=== PATIENT | male | born 1955 | race Caucasian/White ===

== ENCOUNTER 2017-12-29 22:01 | Inpatient (IN) | payer BC ==
--- NOTE | 2017-12-29 22:51 | RAD REPORT ---
EXAM DESCRIPTION: RAD - Chest Single View - 12/29/2017 10:44 pm CLINICAL HISTORY: Chest pain. COMPARISON: None. FINDINGS: Portable technique limits examination quality. The lungs are grossly clear. The heart is normal in size. No displaced fractures. IMPRESSION: No acute intrathoracic process suspected.
[2017-12-29 22:52] LABS: Absolute Lymphocytes (CBC) 4.4 K/uL (0.7-4.9); Absolute Neutrophil 4.8 K/uL (1.8-8.0); Basophils % 0.5 % (0-1.3); Eosinophils % 4.3 % (0-4.4); Hematocrit 43.9 % (39.6-49.0); Lymphocytes % 40.9 % (15.3-44.8); MCH 31.4 pg (27.0-35.0); MCV 90.2 fL (80-100); MPV 7.7 fL (7.6-11.3); Monocytes % 9.5 % (3.3-12.3); RBC Red Blood Cell Count 4.86 M/uL (4.33-5.43)
[2017-12-29 22:53] LABS: Protime INR 0.96
[2017-12-30 00:55] LABS: Urine Blood NEGATIVE (NEG); Urine Glucose 1+ (NEG); Urine Protein NEGATIVE (NEG); Urine Specific Gravity 1.015 (1.005-1.030)
--- NOTE | 2017-12-30 00:59 | ER ---
Nurse's Notes [facility] Name: Morris Bowman Age: 62 yrs Sex: Male : 1955 Arrival Date: 12/29/2017 Time: 22:02 Bed 17 Private MD: Diagnosis: Unstable angina Presentation: 12/29 22:03 Presenting complaint: Patient states: that at 2100 he was sitting down eating a bowl of fc gapes and suddenly he started to have pain to the left arm pit. States he got up to try and walk it off but then the pain became worse and he started to have nausea. He is also flushed and having shortness of breath. Transition of care: patient was not received from another setting of care. Onset of symptoms was December 29, 2017 at 21:00. Care prior to arrival: Medication(s) given: TUMs. 22:03 Method Of Arrival: Ambulatory 22:03 Acuity: ALEKSANDRA 2 Historical: - Allergies: 22:23 Codeine; fc - Home Meds: 22:23 Xyzal 5 mg oral tab 1 tab once daily [Active]; Janumet XR 100-1,000 mg oral TM24 1 tab fc once daily [Active]; amlodipine-valsartan 5-320 mg oral tab 1 tab once daily [Active]; Colace 100 mg oral cap 1 cap once daily [Active]; multivitamin oral tab daily [Active]; - PMHx: 22:23 Diabetes - NIDDM; Hypertension; constipation; allergies; fc - PSHx: 22:23 Cholecystectomy; 12/30 02:25 Hernia repair; fc - Immunization history:: Last tetanus immunization: up to date. - Social history:: Smoking status: Patient uses tobacco products, smokes one pack cigarettes per day. Patient/guardian denies using alcohol, street drugs. Screenin/05 22:03 Abuse screen: Denies threats or abuse. Nutritional screening: No deficits noted. Tuberculosis screening: No symptoms or risk factors identified. Fall Risk None identified. Assessment: 22:27 General: Appears in no apparent distress. Behavior is calm, cooperative, appropriate ea for age. Pain: Complains of pain in left axilla. Neuro: Level of Consciousness is awake, alert, obeys commands, Oriented to person, place, time, situation. Cardiovascular: Heart tones present Patient's skin is warm and dry. Respiratory: Airway is patent Respiratory effort is even, unlabored, Respiratory pattern is regular, symmetrical, Breath sounds are clear. GI: Abdomen is round non-distended, Bowel sounds present X 4 quads. Derm: Skin is pink, warm \T\ dry. 23:04 Reassessment: Patient and/or family updated on plan of care and expected duration. Pain ea level reassessed. Patient is alert, oriented x 3, equal unlabored respirations, skin warm/dry/pink. family at bedside. 12/30 00:29 Reassessment: Patient and/or family updated on plan of care and expected duration. Pain ea level reassessed. Pt resting with eyes closed, respirations even and unlabored, chest expansions even and symmetrical. 01:03 Reassessment: Patient and/or family updated on plan of care and expected duration. Pain ea level reassessed. Patient is alert, oriented x 3, equal unlabored respirations, skin warm/dry/pink. Pt stated she was stepping out Mirta [phone]. 02:36 Reassessment: Patient and/or family updated on plan of care and expected duration. Pain ea level reassessed. Patient is alert, oriented x 3, equal unlabored respirations, skin warm/dry/pink. Vital Signs: 12/29 22:03 BP 171 / 86; Pulse 77; Resp 18; Temp 97.6(O); Pulse Ox 97% on R/A; Weight 104.33 kg fc (R); Height 6 ft. 3 in. (190.50 cm) (R); Pain 5/10; 23:35 BP 120 / 76; Pulse 62; Resp 18; Pulse Ox 99% on R/A; ea 12/30 00:30 BP 103 / 52; Pulse 58; Resp 18 S; Pulse Ox 98% on R/A; ea 01:02 BP 102 / 56; Pulse 57; Resp 18 S; Pulse Ox 98% on R/A; ea 02:27 BP 110 / 51; Pulse 56; Resp 16; Temp 98.0; Pulse Ox 96% ; Pain 0/10; fc 12/29 22:03 Body Mass Index 28.75 (104.33 kg, 190.50 cm) ED Course: 12/29 22:02 Patient arrived in ED. ds1 22:03 Arm band placed on Patient placed in an exam room, on a stretcher. fc 22:03 Patient has correct armband on for positive identification. Placed in gown. Bed in low fc position. Call light in reach. campus monitor on. Pulse ox on. NIBP on. 22:03 No provider procedures requiring assistance completed. fc 22:08 Willis Jacob MD is Attending Physician. 22:11 Ara Singer RN is Primary Nurse. ea 22:20 Triage completed. fc 22:33 Inserted saline lock: 20 gauge in right antecubital area, using aseptic technique. ea Blood collected. 22:42 X-ray completed. Portable x-ray completed in exam room. Patient tolerated procedure sw well. 22:44 XRAY Chest (1 view) In Process Unspecified. EDNV 04 00:58 Demarcus Silver MD is Hospitalizing Provider. 01:56 Patient admitted, IV remains in place. ea Administered Medications: 01:13 Drug: Aspirin Chewable Tablet 324 mg Route: PO; ea 02:32 Follow up: Response: No adverse reaction; No change in condition fc Outcome: 00:58 Decision to Hospitalize by Provider. 02:26 Admitted to Tele accompanied by Micromuscle, via wheelchair, room 225, with chart, Report fc called to Alfonzo ARANDA 02:26 Condition: good 02:26 Discharge instructions given to patient, Instructed on the need for admit, Demonstrated understanding of instructions. 02:37 Patient left the ED. ea Signatures: Dispatcher [employer] EDNV Ashlee Esparza RN RN Gina Gomez Shannon Ara Singer RN RN ea Starr, Gregory, MD MD Corrections: (The following items were deleted from the chart) 01:05 01:03 Reassessment: Patient and/or family updated on plan of care and expected ea duration. Pain level reassessed. Patient is alert, oriented x 3, equal unlabored respirations, skin warm/dry/pink. Pt stated she was steeping out Mirta ea 02:25 04/05 22:23 PSHx: Hysterectomy; fc fc 12/30 02:30 02:26 Admitted to Tele accompanied by Micromuscle, via wheelchair, room 225, with chart, fc Report called to Irving RN fc
--- NOTE | 2017-12-30 00:59 | EDPHYS ---
Physician Documentation [facility] Name: Morris Bowman Age: 62 yrs Sex: Male : 1955 Arrival Date: 12/29/2017 Time: 22:02 Bed 17 Private MD: ED Physician Willis Jacob HPI: 12/30 01:02 This 62 yrs old Male presents to ER via Ambulatory with complaints of Nausea, gs Pain Under Arm. 01:02 The patient or guardian reports chest pain that is located primarily in the anterior gs chest wall, left. Onset: acutely, 1.5 hour(s) ago. The pain does not radiate. Associated signs and symptoms: Pertinent positives: diaphoresis, shortness of breath. The chest pain is described as a heaviness. Duration: The patient or guardian reports a single episode, that lasted 30 minute(s). Modifying factors: The symptoms are alleviated by nothing. the symptoms are aggravated by nothing. Severity of pain: At its worst the pain was severe in the emergency department the pain has resolved. The patient has not experienced similar symptoms in the past. Historical: - Allergies: 12/29 22:23 Codeine; fc - Home Meds: 22:23 Xyzal 5 mg oral tab 1 tab once daily [Active]; Janumet XR 100-1,000 mg oral TM24 1 tab fc once daily [Active]; amlodipine-valsartan 5-320 mg oral tab 1 tab once daily [Active]; Colace 100 mg oral cap 1 cap once daily [Active]; multivitamin oral tab daily [Active]; - PMHx: 22:23 Diabetes - NIDDM; Hypertension; constipation; allergies; fc - PSHx: 22:23 Cholecystectomy; fc 12/30 02:25 Hernia repair; fc - Immunization history:: Last tetanus immunization: up to date. - Social history:: Smoking status: Patient uses tobacco products, smokes one pack cigarettes per day. Patient/guardian denies using alcohol, street drugs. ROS: 01:02 All other systems are negative. gs Exam: 01:02 Head/Face: Normocephalic, atraumatic. Eyes: Pupils equal round and reactive to light, gs extra-ocular motions intact. Lids and lashes normal. Conjunctiva and sclera are non-icteric and not injected. Cornea within normal limits. Periorbital areas with no swelling, redness, or edema. ENT: Nares patent. No nasal discharge, no septal abnormalities noted. Tympanic membranes are normal and external auditory canals are clear. Oropharynx with no redness, swelling, or masses, exudates, or evidence of obstruction, uvula midline. Mucous membranes moist. Neck: Trachea midline, no thyromegaly or masses palpated, and no cervical lymphadenopathy. Supple, full range of motion without nuchal rigidity, or vertebral point tenderness. No Meningismus. Chest/axilla: Normal chest wall appearance and motion. Nontender with no deformity. No lesions are appreciated. Respiratory: Lungs have equal breath sounds bilaterally, clear to auscultation and percussion. No rales, rhonchi or wheezes noted. No increased work of breathing, no retractions or nasal flaring. Abdomen/GI: Soft, non-tender, with normal bowel sounds. No distension or tympany. No guarding or rebound. No evidence of tenderness throughout. Back: No spinal tenderness. No costovertebral tenderness. Full range of motion. Skin: Warm, dry with normal turgor. Normal color with no rashes, no lesions, and no evidence of cellulitis. MS/ Extremity: Pulses equal, no cyanosis. Neurovascular intact. Full, normal range of motion. Neuro: Awake and alert, GCS 15, oriented to person, place, time, and situation. Cranial nerves II-XII grossly intact. Motor strength 5/5 in all extremities. Sensory grossly intact. Cerebellar exam normal. Normal gait. 01:02 Constitutional: The patient appears alert, awake. 01:02 Cardiovascular: Rate: normal, Rhythm: regular, Pulses: no pulse deficits are appreciated, Heart sounds: normal, Edema: is not appreciated. 01:02 ECG was reviewed by the Attending Physician. Vital Signs: 12/29 22:03 BP 171 / 86; Pulse 77; Resp 18; Temp 97.6(O); Pulse Ox 97% on R/A; Weight 104.33 kg fc (R); Height 6 ft. 3 in. (190.50 cm) (R); Pain 5/10; 23:35 BP 120 / 76; Pulse 62; Resp 18; Pulse Ox 99% on R/A; ea 12/30 00:30 BP 103 / 52; Pulse 58; Resp 18 S; Pulse Ox 98% on R/A; ea 01:02 BP 102 / 56; Pulse 57; Resp 18 S; Pulse Ox 98% on R/A; ea 02:27 BP 110 / 51; Pulse 56; Resp 16; Temp 98.0; Pulse Ox 96% ; Pain 0/10; fc 12/29 22:03 Body Mass Index 28.75 (104.33 kg, 190.50 cm) MDM: 12/29 22:18 Patient medically screened. 12/30 01:02 Differential diagnosis: abnormal EKG, acute myocardial infarction, coronary artery gs disease unstable angina. Data reviewed: vital signs, nurses notes. ED course: troponin elevated, no recurrence of pain will admit. 12/29 22:18 Order name: Basic Metabolic Panel; Complete Time: 23:14 12/29 22:18 Order name: BNP; Complete Time: 23:22 12/29 22:18 Order name: CBC with Diff; Complete Time: 23:14 12/29 22:18 Order name: PT-INR; Complete Time: 23:14 12/29 22:18 Order name: Troponin (emerg Dept Use Only); Complete Time: 23:14 12/29 22:18 Order name: XRAY Chest (1 view); Complete Time: 22:54 12/29 22:18 Order name: EKG; Complete Time: 22:19 12/29 22:18 Order name: Cardiac monitoring; Complete Time: 22:41 12/29 22:47 Order name: D-Dimer; Complete Time: 23:14 [facility] 12/29 23:35 Order name: Troponin (emerg Dept Use Only); Complete Time: 00:50 12/29 23:58 Order name: Urine Dipstick--Ancillary (enter results); Complete Time: 00:57 rg2 12/30 01:03 Order name: CONS Physician Consult EDIL 12/29 22:18 Order name: EKG - Nurse/Tech; Complete Time: 22:41 12/29 22:18 Order name: IV Saline Lock; Complete Time: 22:41 12/29 22:18 Order name: Labs collected and sent; Complete Time: 22:41 12/29 22:18 Order name: O2 Per Protocol; Complete Time: 22:41 12/29 22:18 Order name: O2 Sat Monitoring; Complete Time: 22:41 12/29 22:18 Order name: Urine Dipstick-Ancillary (obtain specimen); Complete Time: 23:49 EC: Rate is 72 beats/min. Rhythm is regular. FL interval is normal. QRS interval is normal. QT interval is normal. ST Segment is elevated in leads II, aVF. Clinical impression: NSR w/ Non-specific ST/T Changes. Interpreted by me. Administered Medications: 01:13 Drug: Aspirin Chewable Tablet 324 mg Route: PO; ea 02:32 Follow up: Response: No adverse reaction; No change in condition Disposition: :02 Critical Care:. Disposition: 12/30/17 00:58 Hospitalization ordered by Demarcus Silver for Inpatient Admission. Preliminary diagnosis is Unstable angina. - Bed requested for Telemetry/MedSurg (Inpatient). - Status is Inpatient Admission. ea - Condition is Stable. - Problem is new. - Symptoms are resolved. UTI on Admission? No Critical care time excluding procedures: : Critical care time: Bedside Care: 10 minutes, Consultation: 10 minutes, Family gs Intervention: 10 minutes. Total time: 30 minutes Signatures: Dispatcher [employer] Ligia Marsh RN RN Ashlee Esparza RN RN fc Antunez, Elena, RN RN ea Starr, Gregory, MD MD Corrections: (The following items were deleted from the chart) 12/29 22:47 22:29 D-DIMER+COAG.LAB.BRZ ordered. EDIL EDIL 12/30 02:25 12/29 22:23 PSHx: Hysterectomy; [facility]
[2017-12-30] MEDS ORDERED: ASPIRIN 81 MG CHEWABLE TABLET ONE (01:30)
--- NOTE | 2017-12-30 02:16 | P.HP ---
Certification for Inpatient Patient admitted to: Inpatient With expected LOS: >2 Midnights Practitioner: I am a practitioner with admitting privileges, knowledge of patient current condition, hospital course, and medical plan of care. Services: Services provided to patient in accordance with Admission requirements found in Title 42 Section 412.3 of the Code of Federal Regulations Patient History Date of Service: 12/30/17 Reason for admission: NSTEMI History of Present Illness: Mr Bowman is a 62 years old male with history of DM II, HTN, obesity, tobacco abuse, who came to ED complaining of chest pain. His symptoms started last night around 2100 while he was eating a bowl of grapes. He felt a pressure in his left arm pit, lasting for 20 minutes, 4/10 of intensity, no radiated, associated with nausea and SOB. He denied palpitations or dizziness. Then he repeat same symptoms again for other 20 minutes. In ER he had another episode. At the time of my encounter the patient was pain free. EKG shows sinus rhythm at 70's bpm. Initial troponin I negative, however, second one 0.06. Allergies codeine Allergy (Verified 12/30/17 01:12) Itching/Hives/Rash Home Medications: Amlodipine/Valsartan [Amlodipine-Valsartan 5-320 mg] 1 tab PO DAILY 12/30/17 Docusate [Colace Cap] 100 mg PO DAILY 12/30/17 Levocetirizine Dihydrochloride [Xyzal] 1 tab PO DAILY 12/30/17 Multivitamin [Multiple Vitamins] 1 tab PO DAILY 12/30/17 Sitagliptin Phos/Metformin HCl [Janumet Xr 100-1,000 mg Tablet] 1 tab PO DAILY 12/30/17 - Past Medical/Surgical History -: DM II -: HTN -: tobacco abuse -: Cholecystectomy - Family History Family History: Reviewed- Non-Contributory - Social History Smoking Status: Current every day smoker Counseled patient to stop smoking for: less than 10 minutes Alcohol use: No CD- Drugs: No Place of Residence: Home Review of Systems 10-point ROS is otherwise unremarkable Physical Examination - Physical Exam General: Alert, In no apparent distress HEENT: Atraumatic, PERRLA, Mucous membr. moist/pink, EOMI, Sclerae nonicteric Neck: Supple, 2+ carotid pulse no bruit, No LAD, Without JVD or thyroid abnormality Respiratory: Clear to auscultation bilaterally, Normal air movement Cardiovascular: Regular rate/rhythm, Normal S1 S2 Gastrointestinal: Normal bowel sounds, No tenderness Musculoskeletal: No tenderness Integumentary: No rashes Neurological: Normal speech, Normal strength at 5/5 x4 extr, Normal tone, Normal affect Lymphatics: No axilla or inguinal lymphadenopathy - Studies Laboratory Data (last 24 hrs) 12/29/17 22:32: PT 11.3, INR 0.96 12/29/17 22:32: WBC 10.7, Hgb 15.3, Hct 43.9, Plt Count 260 12/29/17 22:32: B-Natriuretic Peptide 20 12/29/17 22:32: Sodium 132 L, Potassium 4.0, BUN 15, Creatinine 1.10, Glucose 266 H Assessment and Plan - Problems (Diagnosis) (1) NSTEMI (non-ST elevated myocardial infarction) Current Visit: Yes Status: Acute (2) HTN (hypertension) Current Visit: Yes Status: Acute Qualifiers: Hypertension type: essential hypertension Qualified Code(s): I10 - Essential (primary) hypertension (3) Diabetes mellitus Current Visit: Yes Status: Acute Qualifiers: Diabetes mellitus type: type 2 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 Will load with Brilinta, he already received ASA 324 mg, order Atorvastatin, full dose lovenox , hold beta dean due to borderline blood pressure and bradycardia (60 bpm). Consult Electrolog Operator. - Advance Directives Does patient have a Living Will: No Does patient have a Durable POA for Healthcare: No - Code Status/Comfort Care Code Status Assessed: Yes Code Status: Full Code
[2017-12-30] MEDS ORDERED: TICAGRELOR 90 MG TABLET PO ONE ×2 (02:27→04:08)
[2017-12-30] MEDS ORDERED: MORPHINE 4 MG/ML SYR IV PRN (02:27)
[2017-12-30] MEDS ORDERED: ACETAMINOPHEN 500 MG TAB PO PRN (02:27)
[2017-12-30] MEDS ORDERED: NITROGLYCERIN 0.4 MG/TAB SL PRN ×2 (02:27→16:50)
[2017-12-30] MEDS: ATORVASTATIN 80 MG TAB PO SCH ×2 (03:54→21:19)
--- NOTE | 2017-12-30 06:31 | EKG ---
Test Date: 2017-12-29 Test Time: 22:22:49 Syruper: ANDRIY MEASUREMENT RESULTS: Intervals: Rate: 72 OK: 180 QRSD: 76 QT: 348 QTc: 381 [place]: P: 47 OK: 180 QRS: 8 T: 37 INTERPRETIVE STATEMENTS: Normal sinus rhythm Possible Inferior infarct, age undetermined Abnormal ECG No previous ECG available for comparison Electronically Signed On 12-30-17 06:30:52 CDT by Gael Dela Cruz
[2017-12-30] MEDS: INSULIN -REGULAR HUMAN 50 UNIT/0.5 ML ML SQ SCH ×4 (07:30→21:00)
--- NOTE | 2017-12-30 07:48 | P.PN ---
Subjective Date of Service: 12/30/17 Primary Care Provider: Dr. Orellana([place]) Chief Complaint: NSTEMI Subjective: Doing well (Patient doing well. No chest pain noted. Patient reports a history of stress test many years ago.) Physical Examination - Vital Signs Temperature: 97.7 F Blood Pressure: 130/66 Pulse: 59 Respirations: 18 Pulse Ox (%): 98 - Physical Exam General: Alert, In no apparent distress, Oriented x3, Cooperative HEENT: Atraumatic, Mucous membr. moist/pink Neck: Supple, No Thyromegaly Respiratory: Clear to auscultation bilaterally, Normal air movement Cardiovascular: Normal pulses, Regular rate/rhythm Gastrointestinal: Normal bowel sounds, Soft and benign, Non-distended, No masses , No rebound, No guarding Musculoskeletal: No erythema, No tenderness, No warmth Integumentary: No tenderness/swelling, No erythema, No warmth, No cyanosis Neurological: Normal speech, Normal strength at 5/5 x4 extr, Normal tone, Normal affect - Studies Laboratory Data (last 24 hrs) 12/29/17 22:32: PT 11.3, INR 0.96 12/29/17 22:32: WBC 10.7, Hgb 15.3, Hct 43.9, Plt Count 260 12/29/17 22:32: B-Natriuretic Peptide 20 12/29/17 22:32: Sodium 132 L, Potassium 4.0, BUN 15, Creatinine 1.10, Glucose 266 H Medications List Reviewed: Yes Assessment & Plan - Problems (Diagnosis) (1) Chest pain Current Visit: Yes Status: Acute Plan: Chest pain noted. Elevated troponin noted. Suspect non ST wave NE. Will keep the patient NPO. Console cardiology for recommendation. Patient will likely need intervention. Await recommendations. Will check echocardiogram. Patient did get a dose of Brilinta last night. Will continue with current medications. Qualifiers: Chest pain type: unspecified Qualified Code(s): R07.9 - Chest pain, unspecified (2) Diabetes mellitus Current Visit: Yes Status: Chronic Plan: Will check A1c. Will continue with sliding scale. Qualifiers: Diabetes mellitus type: type 2 Diabetes mellitus group home insulin use: without group home use Diabetes mellitus complication status: with unspecified complications Qualified Code(s): E11.8 - Type 2 diabetes mellitus with unspecified complications (3) HTN (hypertension) Current Visit: Yes Status: Chronic Plan: Will provide blood pressure medication-losartan. Will monitor closely and adjust. Qualifiers: Hypertension type: essential hypertension Qualified Code(s): I10 - Essential (primary) hypertension (4) NSTEMI (non-ST elevated myocardial infarction) Current Visit: Yes Status: Acute Plan: Patient with elevated troponin. Cardiology consulted. Patient NPO in preparation for possible intervention. (5) Tobacco abuse Current Visit: Yes Status: Chronic Plan: Tobacco cessation will be addressed in detail. Discharge Plan: Home Plan to discharge in: 24 Hours Time Spent Managing Pts Care (In Minutes): 55
[2017-12-30] MEDS ORDERED: ENOXAPARIN 100 MG/ML SYR SQ SCH (09:00)
[2017-12-30] MEDS: LOSARTAN POTASSIUM 50 MG TABLET PO SCH (09:00)
[2017-12-30] MEDS: DOCUSATE NA 100 MG CAP PO SCH (09:00)
[2017-12-30] MEDS: ASPIRIN EC 81 MG TAB PO SCH (09:00)
[2017-12-30] MEDS ORDERED: NA CHLORIDE 0.9% 50 ML ONE (09:11)
[2017-12-30] MEDS ORDERED: ATROPINE SULF 1 MG/10 ML SYR IV ONE (09:11)
[2017-12-30] MEDS ORDERED: HEPA 1000U/500MLS 1,000 UNIT/500 ML BAG IV ONE ×2 (09:11→09:41)
[2017-12-30] MEDS ORDERED: HEPARIN 5000 UNIT/ML 1 ML VIAL ONE (09:12)
[2017-12-30] MEDS ORDERED: NITROGLYCERIN/D5W 25 MG/250 ML BTL IV ONE (09:12)
[2017-12-30] MEDS ORDERED: NICARDIPINE HCL 25 MG/10 ML IV ONE (09:12)
--- NOTE | 2017-12-30 09:18 | EKG ---
Test Date: 2017-12-30 Test Time: 03:14:10 Principal Developer: RT-O MEASUREMENT RESULTS: Intervals: Rate: 53 SC: 178 QRSD: 94 QT: 388 QTc: 364 [place]: P: 61 SC: 178 QRS: 42 T: 56 INTERPRETIVE STATEMENTS: Sinus bradycardia Otherwise normal ECG Compared to ECG 12/29/2017 22:22:49 Sinus rhythm no longer present Myocardial infarct finding no longer present Electronically Signed On 12-30-17 09:17:53 CDT by Gael eDla Cruz
[2017-12-30 09:34] LABS: Thyroid Stimulating Hormone 2.13 uIU/mL (0.34-5.60)
[2017-12-30] MEDS ORDERED: NA CHLORIDE 0.9% 500 ML ONE (09:51)
[2017-12-30] MEDS ORDERED: MIDAZOLAM HCL 2 MG/2 ML INJ ONE (09:57)
[2017-12-30] MEDS ORDERED: FENTANYL CITR 100 MCG/2 ML ONE ×3 (09:57→10:41)
[2017-12-30 11:15] LABS: A1c Component 0.94 mg/dL; Hemoglobin A1c 7.5 % (4-6.0)
--- NOTE | 2017-12-30 13:04 | CON ---
CARDIOLOGY CONSULT History Of Present Illness: Mr. Bowman is 62. He has a history of diabetes and tobacco use, COPD, a nd he started having chest pain. The chest pain was retrosternal, felt like nausea, a lot of burping lasted about 30 minutes, went away, came back once for 10 minutes and then went away. He came to [facility] emergency room where he has a normal complete blood count. He has a blood sugar of 266, creatinine of 1.1 and troponins were initially less than 0.03. Now, they have gone up to 0.08. He has a ricky l lipid panel. He has never had myocardial infarction or stroke before. He is allergic to codeine. Outpatient Medications: Xyzal, amlodipine, valsartan, Janumet, multivitamin, and docusate. Social History: He smokes about 1 pack per day. Physical Examination: General: He is plethoric. HEENT: Unremarkable. Lungs: Clear. Cardiac: Within normal limits. Abdomen: Soft. Extremities: Palpable normal distal pulses. There are 2 to 3+. A chest x-ray is normal. His electrocardiogram shows a possible inferior infarct, age undetermined. Impression: The patient has unstable angina. I believe he should undergo a cardiac cath and possibl e stent. We will try and do that as soon as we are sure about anticoagulation and I believe he could be taken to the cardiac cathodic protection technician, do a radial artery cardiac cath and possibly a stent. MIRYAM Voice ID: [id number] Report ID: [id number]
[2017-12-30] MEDS ORDERED: ACETAMINOPHEN 325 MG TABLET PO PRN (16:49)
[2017-12-30] MEDS ORDERED: NA CHLORIDE 0.9% 1,000 ML IV SCH (17:00)
[2017-12-30] MEDS: METOPROLOL TAR 25 MG TAB PO SCH (18:02)
[2017-12-30] MEDS: TICAGRELOR 90 MG TABLET PO SCH (21:20)
--- NOTE | 2017-12-30 21:33 | OP ---
Surgeon: Gael Dela Cruz MD Procedures Performed: Left heart catheterization. Coronary left ventricular angiography. Angioplas ty of the mid-LAD 99% thrombosed stenosis. Successful intervention, a stent was placed, and has 0% r esidual stenosis after the stent. Findings: The patient had a mid LAD stenosis with thrombus and obvious culprit lesion. Left ventric ular ejection fraction was normal. The other arteries were free of any significant disease. There w as mild plaque throughout his coronary tree. Very minimal calcification. After stenting, there was 0% residual stenosis. Procedure In Detail: The patient had unstable angina. Evidence non-ST elevation NV. Brought to the cardiac medical lab technologist in a fasting state. Sedated with Versed and fentanyl. Prepared and draped in usua l sterile fashion. The right radial approach was used. We entered the artery using a 21-gauge needl e, modified Seldinger technique. A 0.021 inch guidewire. Used a Terumo sheath. Used a TIG catheter , guided to the aortic root using fluoroscopy and a Glidewire. Used the TIG catheter to angiogram le ft ventricle, left and right coronaries. We exchanged the catheter over an exchange length J-wire fo r an Ikari left 4.0 with side holes. This successfully engaged the left main ostium. We were able t o pass a Gifford wire. We used an Emerge balloon, 3.0 x 15, to dilate the lesion. After dilation, th ere was a severe residual stenosis, and we stented the lesion using a 3.0 x 16 synergy, inflated to 1 2 atmospheres. After the stent was placed, there was MOUNA grade 3 flow. No residual stenosis. The stent was placed fairly close to a myocardial bridge. At the end of that all stents and catheters we re removed. Final angiograms were done through the sheath, through the guide catheter. Then the alayna de catheter was removed over a J-wire and arteriotomy was closed by removing the sheath and using a T R band. As soon as the sheath had first gone in place, we used a radial cocktail. During the stent procedure, we used Angiomax. Complications from the procedure, none. Blood Loss: 10 cc. Complications: None. Trim Setter: Carla Garland. BRANDO/JO Voice ID: [id number] Report ID: [id number]
[2017-12-31 05:13] LABS: Absolute Lymphocytes (CBC) 4.4 K/uL (0.7-4.9); Absolute Monocytes 1.2 K/uL (0.1-1.3); Absolute Neutrophil 7.1 K/uL (1.8-8.0); Basophils % 0.3 % (0-1.3); Eosinophils % 3.8 % (0-4.4); Hematocrit 48.2 % (39.6-49.0); Lymphocytes % 33.4 % (15.3-44.8); MCH 30.3 pg (27.0-35.0); MCV 91.4 fL (80-100); MPV 8.1 fL (7.6-11.3); Monocytes % 8.8 % (3.3-12.3); RBC Red Blood Cell Count 5.28 M/uL (4.33-5.43)
[2017-12-31 05:29] LABS: Potassium 4.3 mEq/L (3.6-5.0)
[2017-12-31 06:18] VITALS: BMI 28.3
[2017-12-31] MEDS: METOPROLOL TAR 25 MG TAB PO SCH (06:25)
[2017-12-31 07:28] VITALS: O2SAT 96
[2017-12-31] MEDS: INSULIN -REGULAR HUMAN 50 UNIT/0.5 ML ML SQ SCH (07:30)
[2017-12-31 08:06] VITALS: BP 140/70; TEMP 97.3
[2017-12-31] MEDS: LOSARTAN POTASSIUM 50 MG TABLET PO SCH (09:00)
[2017-12-31] MEDS: DOCUSATE NA 100 MG CAP PO SCH (09:38)
[2017-12-31] MEDS: ASPIRIN EC 81 MG TAB PO SCH (09:38)
[2017-12-31] MEDS: TICAGRELOR 90 MG TABLET PO SCH (09:39)
[2017-12-31] MEDS ORDERED: VALSARTAN 160 MG TAB PO SCH (10:00)
[2017-12-31] MEDS ORDERED: AMLODIPINE 5 MG TAB PO SCH (10:00)
--- NOTE | 2017-12-31 10:38 | P.DS ---
Admission Date: 12/30/17 (Hospitalist note) Discharge Date: 12/31/17 Primary Care Provider: Dr. Orellana([facility]) Disposition: ROUTINE DISCHARGE Discharge Condition: GOOD Reason for Admission: NSTEMI Procedures: Cardiac catheterization with angioplasty and stent placement Brief History of Present Illness: Patient is 62 years of age admitted with unstable angina Hospital Course: He was admitted had a cardiac catheterization done stent placed the time of discharge is doing well denies any chest pain shortness of breath he does however smoke has been complaining of a cough for the past few weeks he may have underlying COPD for possible postnasal drainage I have instructed him to use some Flonase and or Benadryl Consul them to stops smoking On examination today's alert oriented responsive cooperative vital signs all stable room-air saturation is satisfactory chest is clear there is no wheezing or crackles cardiovascular stem os was normal abdomen soft extremities no edema discharge Vital Signs/Physical Exam: Temp Pulse Resp BP Pulse Ox 97.3 F 56 18 140/70 97 12/31/17 08:00 12/31/17 08:00 12/31/17 08:00 12/31/17 08:00 12/31/17 08:00 Laboratory Data at Discharge: WBC 13.3 K/uL (4.3-10.9) H D 12/31/17 04:37 Hgb 16.0 g/dL (13.6-17.9) 12/31/17 04:37 Hct 48.2 % (39.6-49.0) 12/31/17 04:37 Plt Count 287 K/uL (152-406) 12/31/17 04:37 PT 11.3 SECONDS (9.5-12.5) 12/29/17 22:32 INR 0.96 12/29/17 22:32 Sodium 137 mEq/L (135-145) 12/31/17 04:37 Potassium 4.3 mEq/L (3.6-5.0) 12/31/17 04:37 BUN 10 mg/dL (6-20) 12/31/17 04:37 Creatinine 1.00 mg/dL (0.61-1.24) 12/31/17 04:37 Glucose 134 mg/dL (65-120) H 12/31/17 04:37 Troponin I 0.08 ng/mL (<0.03) H 12/30/17 04:25 B-Natriuretic Peptide 20 pg/ml (<=100) 12/29/17 22:32 Triglycerides 159 mg/dL (35-160) 12/30/17 04:25 Cholesterol 149 mg/dL (<200) 12/30/17 04:25 HDL Cholesterol 27 mg/dL (27-67) 12/30/17 04:25 Cholesterol/HDL Ratio 5.52 12/30/17 04:25 Home Medications: Amlodipine/Valsartan [Amlodipine-Valsartan 5-320 mg] 1 tab PO DAILY 12/30/17 Docusate [Colace Cap*] 100 mg PO DAILY 12/30/17 Levocetirizine Dihydrochloride [Xyzal] 1 tab PO DAILY 12/30/17 Multivitamin [Multiple Vitamins] 1 tab PO DAILY 12/30/17 Sitagliptin Phos/Metformin HCl [Janumet Xr 100-1,000 mg Tablet] 1 tab PO DAILY 12/30/17 Amlodipine [Norvasc*] 5 mg PO DAILY tab 12/31/17 Atorvastatin Calcium [Lipitor] 80 mg PO BEDTIME #60 tab 12/31/17 Insulin -Regular Human [Novolin -R*] See Protocol SQ ACHS ml 12/31/17 Metoprolol Tartrate [Lopressor*] 12.5 mg PO BID 6AM 6PM #60 tab 12/31/17 Nitroglycerin [Nitrostat*] 0.4 mg SL UD PRN #1 bottle 12/31/17 Ticagrelor [Brilinta*] 90 mg PO BID #60 tablet 12/31/17 Valsartan [Diovan*] 320 mg PO DAILY tab 12/31/17 New Medications: Atorvastatin Calcium [Lipitor] 80 mg PO BEDTIME #60 tab Metoprolol Tartrate [Lopressor*] 12.5 mg PO BID 6AM 6PM #60 tab Nitroglycerin [Nitrostat*] 0.4 mg SL UD PRN #1 bottle PRN Reason: Chest Pain Ticagrelor [Brilinta*] 90 mg PO BID #60 tablet Patient Discharge Instructions: Patient to follow up with Cardiology Diet: Regular Activity: Ad trisha
--- NOTE | 2017-12-31 14:31 | PN ---
Subjective: Mr. Bowman seems to be doing well. He had a single stent placed in the mid LAD yesterda y. Today the cardiac cath site right radial artery looks good, free of any symptoms. His blood test s all look just fine. Hemoglobin has not dropped any. His creatinine is 1.00, little bit better roby n yesterday. Blood sugars between 100 and 180. I think he could be discharge today. We will have h im take atorvastatin 80, aspirin 81, metoprolol 12.5 b.i.d., and Brilinta 90 mg b.i.d. He will julianne nue his outpatient medication of amlodipine with valsartan and Janumet, although he has been instruct ed not to take the Janumet until Tuesday. He will continue to use insulin on a sliding scale. I will ask him to call my office Tuesday to schedule followup. BRANDO/JO Voice ID: [id number] Report ID: [id number]
== END 2017-12-31 11:32 | disposition home or self-care (01) | DRG 247 ==
LOC: ER 22:01 → ERHOLD 12-30 01:01 → 2ND 12-30 02:18
PROVIDERS: ADMIT Internal Medicine; ATTEND Internal Medicine Sleep Medicine
PROC: 4A023N7 Measurement of Cardiac Sampling and Pressure, Left Heart, Percutaneous Approach (ICD-10-PCS; principal; 2017-12-30)
PROC: 027034Z Dilation of Coronary Artery, One Artery with Drug-eluting Intraluminal Device, Percutaneous Approach (ICD-10-PCS; 2017-12-30)
DX: I21.4 Non-ST elevation (NSTEMI) myocardial infarction (principal); E11.9 Type 2 diabetes mellitus without complications; I10 Essential (primary) hypertension; E66.09 Other obesity due to excess calories; F17.210 Nicotine dependence, cigarettes, uncomplicated; J44.9 Chronic obstructive pulmonary disease, unspecified
CPT/HCPCS: 36415; 71045; 80048; 80061; 81003; 82962; 83036; 83880; 84439; 84443; 84484; 85025; 85347; 85379; 85610; 92928; 93005; 93458; 99285; C1725; C1893; J0583; J1644; J2250; J3010

== ENCOUNTER 2018-05-12 14:05 | Emergency (ER) | payer BC ==
--- OUTSIDE RECORDS SUMMARY | 2018-05-12 14:08 | XMS REPORT | Clinical Summary ---
:1955 Author Organization [facility] Address [address] [place] [address] Care Team Providers Name Role Phone Markie Wong MD Primary Care Provider Allergies Active Allergy Reactions Severity Noted Date Comments Codeine GI Intolerance 09/26/2017 Bad dreams Current Medications Prescription Sig. Disp. Refills Start Date End Date Status senna (SENOKOT) 8.6 Take 1 tablet Active mg tablet by mouth daily. pantoprazole Take 40 mg by Active (PROTONIX) 40 MG EC mouth daily. tablet lisinopril Take 5 mg by Active (PRINIVIL,ZESTRIL) mouth daily. 5 mg tablet JANUMET XR TK 1 T PO D 3 10/10/2017 Active 100-1,000 mg tablet, ER multiphase 24 hr docusate sodium Take 1 capsule 60 capsule 0 09/26/2017 (COLACE) 100 MG (100 mg total) 8 capsule by mouth every 12 (twelve) hours for 30 days. polyethylene glycol Take 17 g by 30 packet 0 09/26/2017 (MIRALAX) 17 gram mouth daily 8 packet for 30 days. dicyclomine Take 1 tablet 10 tablet 0 09/26/2017 (BENTYL) 20 mg (20 mg total) 8 tablet by mouth 2 (two) times a day for 5 days. ondansetron Take 1 tablet 20 tablet 0 09/26/2017 (ZOFRAN) 4 MG (4 mg total) 8 tablet by mouth every 6 (six) hours for 5 days. SITAGLIPTIN Take by mouth. Discontinued PHOS/METFORMIN HCL 8 (JANUMET ORAL) acetaminophen Take 2 tablets 40 tablet 0 10/31/2017 (TYLENOL) 325 MG (650 mg total) 8 tablet by mouth every 6 (six) hours as needed for moderate pain for up to 30 days. docusate sodium Take 1 capsule 30 capsule 0 10/31/2017 (COLACE) 100 MG (100 mg total) 8 capsule by mouth daily for 30 days. traMADol (ULTRAM) Take 1 tablet 25 tablet 0 10/31/2017 50 mg tablet (50 mg total) 8 by mouth every 6 (six) hours as needed for moderate pain for up to 5 days. polyethylene glycol Take 17 g by 60 packet 0 10/31/2017 (MIRALAX) 17 gram mouth 2 (two) 8 packet times a day for 30 days. magnesium hydroxide Take 5 mL by 118 mL 0 10/31/2017 (magnesium mouth 4 (four) 8 hydroxide) 400 mg/5 times a day as mL suspension needed (constipation) for up to 30 days. Active Problems No known active problems Encounters Date Type Specialty Care Team Description 10/31/2017 Hospital Encounter General Surgery Elisha Murillo, Hernia, inguinal, left 10/31/2017 Procedure Pass General Surgery 10/31/2017 Surgery General Surgery Elisha Murillo, OPEN LEFT INGUINAL MD HERNIA REPAIR 10/19/2017 Pre-Admit Testing Pre-Admission Elisha Murillo, Preop testing Appointment Testing (Primary Dx) 10/19/2017 Office Visit General Surgery Elisha Murillo, Recurrent inguinal MD hernia of left side without obstruction or gangrene (Primary Dx) 10/19/2017 Anesthesia Event General Surgery [facility] desai NP 09/26/2017 Emergency Emergency Medicine Ward, Abdominal pain of unknown etiology (Primary Dx); MD Izabella Reducible left inguinal hernia; Constipation, unspecified constipation type after 05/11/2017 Social History Tobacco Use Types Packs/Day Years Used Date Former Smoker Smokeless Tobacco: Never Used Alcohol Use Drinks/Week oz/Week Comments No Sex Assigned at Date Recorded Not on file Last Filed Vital Signs Vital Sign Reading Time Taken Blood Pressure 130/65 10/31/2017 4:00 PM 411 DIRECTORY ASSISTANCE OPERATOR Pulse 63 10/31/2017 3:45 PM 411 DIRECTORY ASSISTANCE OPERATOR Temperature 36.6 C (97.8 F) 10/31/2017 4:00 PM 411 DIRECTORY ASSISTANCE OPERATOR Respiratory Rate 10 10/31/2017 3:45 PM 411 DIRECTORY ASSISTANCE OPERATOR Oxygen Saturation 97% 10/31/2017 3:45 PM 411 DIRECTORY ASSISTANCE OPERATOR Inhaled Oxygen Concentration - - Weight 103 kg (226 lb 9.6 oz) 10/31/2017 9:10 AM 411 DIRECTORY ASSISTANCE OPERATOR Height 188 cm (6' 2") 10/31/2017 9:10 AM 411 DIRECTORY ASSISTANCE OPERATOR Body Mass Index 29.09 10/31/2017 9:10 AM 411 DIRECTORY ASSISTANCE OPERATOR Plan of Treatment Health Maintenance Due Date Last Done Comments COLON CANCER SCREENING 2003 SHINGRIX VACCINE (#1) 2003 ZOSTER VACCINE 2013 INFLUENZA VACCINE 04/26/2018 Implants Implanted Type Area Forensic Materials Engineer Device Expiration Model / Identifier Date Serial / Lot Mesh Hrnia Rpr 2x12in Flat Shet Ppe Soft-Tissue Ventrl - [id number] Surgical Left: [employer] 04/22/2022 [id number] / Implanted: Qty: 1 on 10/31/2017 by Elisha Murillo MD Mesh or Groin / Tissue [employer]rier [employer] Plug Hrnia Rpr Perfix Lg 1.6x1.9in - [id number] Surgical N/A: N/A [employer] 07/23/2022 [id number] / Implanted: Qty: 1 on 10/31/2017 by Elisha Murillo MD Mesh or / Tissue [id number] Barrier Products Procedures Procedure Name Priority Date/Time Associated Comments Diagnosis SURGICAL PATHOLOGY Routine 10/31/2017 3:04 Results for this REQUEST PM 411 DIRECTORY ASSISTANCE OPERATOR procedure are in the results section. POC GLUCOSE Routine 10/31/2017 1:40 Results for this PM 411 DIRECTORY ASSISTANCE OPERATOR procedure are in the results section. WI AN ELECTIVE Routine 10/31/2017 11:42 SUPRAGLOTTIC AIRWAY AM 411 DIRECTORY ASSISTANCE OPERATOR Procedure Note - Gerson Cadet MD - 10/31/2017 11:41 AM 411 DIRECTORY ASSISTANCE OPERATOR Airway Performed by: GERSON CADET Authorized by: GERSON CADET Location: OR Urgency: Elective Difficult Airway: No Preoxygenated with 100% O2: Yes C-spine Precautions Maintained Throughout: Yes Mask Ventilation: Easy mask Final Airway Type: Supraglottic airway Final LMA: Classic LMA Size: 4 Number of Attempts at Approach: 1 REPAIR, HERNIA, 10/31/2017 10:30 AM Hernia, inguinal, INGUINAL 411 DIRECTORY ASSISTANCE OPERATOR left POC GLUCOSE Routine 10/31/2017 9:31 AM Results for this 411 DIRECTORY ASSISTANCE OPERATOR procedure are in the results section. ESTIMATED GFR Routine 10/19/2017 4:20 PM Results for this 411 DIRECTORY ASSISTANCE OPERATOR procedure are in the results section. CBC HEMOGRAM Routine 10/19/2017 4:20 PM Preop testing Results for this 411 DIRECTORY ASSISTANCE OPERATOR procedure are in the results section. COMPREHENSIVE METABOLIC Routine 10/19/2017 4:20 PM Preop testing Results for this PANEL 411 DIRECTORY ASSISTANCE OPERATOR procedure are in the results section. ECG ED PRELIMINARY Routine 09/26/2017 7:44 PM Results for this INTERPRETATION 411 DIRECTORY ASSISTANCE OPERATOR procedure are in the results section. CT ABDOMEN PELVIS W STAT 09/26/2017 4:39 PM Results for this CONTRAST 411 DIRECTORY ASSISTANCE OPERATOR procedure are in the results section. ECG 12-LEAD STAT 09/26/2017 3:13 PM Results for this 411 DIRECTORY ASSISTANCE OPERATOR procedure are in the results section. XR ABDOMEN ACUTE INC STAT 09/26/2017 2:15 PM Results for this CHEST 411 DIRECTORY ASSISTANCE OPERATOR procedure are in the results section. URINE CULTURE STAT 09/26/2017 2:10 PM Results for this 411 DIRECTORY ASSISTANCE OPERATOR procedure are in the results section. ESTIMATED GFR STAT 09/26/2017 2:00 PM Results for this 411 DIRECTORY ASSISTANCE OPERATOR procedure are in the results section. URINALYSIS SCREEN AND STAT 09/26/2017 2:00 PM Results for this MICROSCOPY, WITH REFLEX 411 DIRECTORY ASSISTANCE OPERATOR procedure are in TO CULTURE the results section. LIPASE LEVEL STAT 09/26/2017 2:00 PM Results for this 411 DIRECTORY ASSISTANCE OPERATOR procedure are in the results section. COMPREHENSIVE METABOLIC STAT 09/26/2017 2:00 PM Results for this PANEL 411 DIRECTORY ASSISTANCE OPERATOR procedure are in the results section. PROTHROMBIN TIME WITH STAT 09/26/2017 2:00 PM Results for this INR 411 DIRECTORY ASSISTANCE OPERATOR procedure are in the results section. HC COMPLETE BLD COUNT STAT 09/26/2017 2:00 PM Results for this W/AUTO DIFF 411 DIRECTORY ASSISTANCE OPERATOR procedure are in the results section. after 05/11/2017 Results Surgical pathology request (10/31/2017 3:04 PM) [facility] DEPARTMENT OF PATHOLOGY AND GENOMIC MEDICINE Surgical pathology report See link below for PDF [facility] DEPARTMENT OF Lab Report PATHOLOGY AND GENOMIC MEDICINE Result status This is Final Report to [facility] DEPARTMENT OF [id number] PATHOLOGY AND GENOMIC MEDICINE Performing Organization Address City/State/Zipcode Phone Number [facility] DEPARTMENT OF PATHOLOGY AND [address] POC glucose (10/31/2017 1:40 PM)Only the most recent of2 resultswithin the time period is included. POC glucose 126 (H) 65 - 99 mg/dL [facility] DEPARTMENT OF PATHOLOGY AND Comment: GENOMIC MEDICINE [facility] Notified RN Meter ID: [id number] Mining Plant Operator: Michael Rm Performing Organization Address City/[facility] Phone Number [facility] DEPARTMENT OF PATHOLOGY AND [address] [place] [address] Estimated GFR (10/19/2017 4:20 PM)Only the most recent of2 resultswithin the time period is included. GFR Non Af Amer 67 mL/min/1.73 m2 [facility] DEPARTMENT OF PATHOLOGY AND GENOMIC MEDICINE GFR Af Amer 82 mL/min/1.73 m2 [facility] DEPARTMENT OF Comment: PATHOLOGY AND GENOMIC Chronic kidney disease: <60 mL/min/1.73m2 MEDICINE Kidney failure: <15 mL/min/1.73m2 The estimated GFR is calculated from the IDMS-traceable Modification of Diet in Renal Disease Equation. The accuracy of the calculation is poor when the creatinine is normal. Calculated values >90 mL/min/1.73m2 are not reported. This equation has not been validated in children (<18 years), women, the elderly (>70 years), or ethnic groups other than Caucasians and Americans. Specimen Plasma specimen Performing Organization Address City/State/Zipcode Phone Number [facility] DEPARTMENT OF PATHOLOGY AND [address] [place] [address] CBC hemogram (10/19/2017 4:20 PM) WBC 14.14 (H) 4.50 - 11.00 k/uL [facility] DEPARTMENT OF PATHOLOGY AND GENOMIC MEDICINE RBC 5.26 4.40 - 6.00 m/uL [facility] DEPARTMENT OF PATHOLOGY AND GENOMIC MEDICINE HGB 16.2 14.0 - 18.0 g/dL [facility] DEPARTMENT OF PATHOLOGY AND GENOMIC MEDICINE HCT 47.6 41.0 - 51.0 % [facility] DEPARTMENT OF PATHOLOGY AND GENOMIC MEDICINE MCV 90.5 82.0 - 100.0 fL [facility] DEPARTMENT OF PATHOLOGY AND GENOMIC MEDICINE MCH 30.8 27.0 - 34.0 pg [facility] DEPARTMENT OF PATHOLOGY AND GENOMIC MEDICINE MCHC 34.0 31.0 - 37.0 g/dL [facility] DEPARTMENT OF PATHOLOGY AND GENOMIC MEDICINE RDW - SD 44.9 37.0 - 55.0 fL [facility] DEPARTMENT OF PATHOLOGY AND GENOMIC MEDICINE MPV 10.2 8.8 - 13.2 fL [facility] DEPARTMENT OF PATHOLOGY AND GENOMIC MEDICINE Platelet count 258 150 - 400 k/uL [facility] DEPARTMENT OF PATHOLOGY AND GENOMIC MEDICINE Nucleated RBC 0.40 /100 WBC [facility] DEPARTMENT OF PATHOLOGY AND GENOMIC MEDICINE Specimen Blood Performing Organization Address City/State/Zipcode Phone Number [facility] DEPARTMENT OF PATHOLOGY AND [address] [place] [address] GENOMIC MEDICINE Comprehensive metabolic panel (10/19/2017 4:20 PM)Only the most recent of2 resultswithin the time period is included. Sodium 141 135 - 148 mEq/L [facility] DEPARTMENT OF PATHOLOGY AND GENOMIC MEDICINE Potassium 4.7 3.5 - 5.0 mEq/L [facility] DEPARTMENT OF PATHOLOGY AND GENOMIC MEDICINE Chloride 100 98 - 112 mEq/L [facility] DEPARTMENT OF PATHOLOGY AND GENOMIC MEDICINE CO2 29 24 - 31 mEq/L [facility] DEPARTMENT OF PATHOLOGY AND GENOMIC MEDICINE Anion gap 12 7 - 15 mEq/L [facility] DEPARTMENT OF Comment: PATHOLOGY AND GENOMIC Starting from December , anion gap calculation MEDICINE no longer incorporates potassium. Please note the change. BUN 12 8 - 23 mg/dL [facility] DEPARTMENT OF PATHOLOGY AND GENOMIC MEDICINE Creatinine 1.1 0.7 - 1.2 mg/dL [facility] DEPARTMENT OF PATHOLOGY AND GENOMIC MEDICINE Glucose 163 (H) 65 - 99 mg/dL [facility] DEPARTMENT OF PATHOLOGY AND GENOMIC MEDICINE Calcium 9.9 8.8 - 10.2 mg/dL [facility] DEPARTMENT OF PATHOLOGY AND GENOMIC MEDICINE Protein 7.6 6.3 - 8.3 g/dL [facility] DEPARTMENT OF Comment: PATHOLOGY AND GENOMIC 4.6-7.0 g/dL MEDICINE 1 week 4.4-7.6 g/dL 7 months-1year5.1-7.3 g/dL 1-2 years5.6-7.5 g/dL >3 years6.0-8.0 g/dL 18-150 6.3-8.3 g/dL Albumin 3.6 3.5 - 5.0 g/dL [facility] DEPARTMENT OF PATHOLOGY AND GENOMIC MEDICINE A/G ratio 0.9 0.7 - 3.8 [facility] DEPARTMENT OF PATHOLOGY AND GENOMIC MEDICINE Alkaline phosphatase 81 40 - 129 U/L [facility] DEPARTMENT OF PATHOLOGY AND GENOMIC MEDICINE AST 20 10 - 50 U/L [facility] DEPARTMENT OF PATHOLOGY AND GENOMIC MEDICINE ALT 42 5 - 50 U/L [facility] DEPARTMENT OF PATHOLOGY AND GENOMIC MEDICINE Total bilirubin 0.6 0.0 - 1.2 mg/dL [facility] DEPARTMENT OF PATHOLOGY AND GENOMIC MEDICINE Specimen Plasma specimen Performing Organization Address City/State/Zipcode Phone Number [facility] DEPARTMENT OF PATHOLOGY AND [address] [place] [address] GENOMIC MEDICINE ECG ED Preliminary Interpretation - NOT AN ORDER (09/26/2017 7:44 PM) Narrative Performed At Izabella Ward MD 09/26/20177:44 PM ECG ED Preliminary Interpretation - Not an Order Performed by: IZABELLA WARD Authorized by: IZABELLA WARD ECG reviewed by ED Physician in the absence of a candy rolling machine operator: yes Previous ECG: Previous ECG:Unavailable Interpretation: Interpretation: normal Rate: ECG rate:58 ECG rate assessment: bradycardic Rhythm: Rhythm: sinus bradycardia Ectopy: Ectopy: none QRS: QRS axis:Left QRS intervals:Normal Conduction: Conduction: normal ST segments: ST segments:Non-specific T waves: T waves: non-specific Q waves: Q waves:III Comments: Sinus bradycardia nonspecific ST-T changes CT Abdomen Pelvis W Contrast (09/26/2017 4:39 PM) Narrative Performed At EXAMINATION:CT ABDOMEN PELVIS W CONTRAST [facility] CLINICAL HISTORY:LLQ painhx hernia COMPARISON:None. TECHNIQUE: Multiple axial CT images of the Abdomen and pelvis were obtainedWith IV contrast Oral contrast was administered. . Sagittal and coronal reconstructions were done. CT imaging was performed with iterative reconstruction technique and/or automated exposure control to reduce radiation dose. FINDINGS: HEPATOBILIARY:No focal hepatic lesions. No biliary ductal dilation. GALLBLADDER: Absent. No fluid collections in the gallbladder fossa. SPLEEN:No splenomegaly. PANCREAS:No focal masses or ductal dilation. ADRENALS:No adrenal nodules. KIDNEYS:No hydronephrosis, stones or solid masses. PERITONEUM/RETROPERITONEUM:No free air or fluid. No lymphadenopathy. ABDOMINAL AORTA/IVC: No aneurysm or dissection. GI TRACT:Visualized portions of the bowel demonstrate no distention or wall thickening. The appendix is normal. There are no signs of diverticulitis. PELVIC ORGANS/BLADDER:Left inguinal hernia contains a segment of the sigmoid colon. No signs of bowel wall thickening or pneumatosis within the hernia sac. Urinary bladder is fluid-filled. Prostate gland measures 5.8 cm in diameter. BONES AND SOFT TISSUES:No acute abnormality. VISUALIZED LOWER CHEST: Mild atelectasis of the right lung base. IMPRESSION: Left inguinal hernia contains a segment of the sigmoid colon without signs of bowel obstruction or strangulation. Postoperative changes of cholecystectomy without fluid collections. [id number] Procedure Note Hm Interface, Radiology Results Incoming - 09/26/2017 4:49 PM 411 DIRECTORY ASSISTANCE OPERATOR EXAMINATION: CT ABDOMEN PELVIS W CONTRAST CLINICAL HISTORY: LLQ pain hx hernia COMPARISON: None. TECHNIQUE: Multiple axial CT images of the Abdomen and pelvis were obtained With IV contrast Oral contrast was administered. . Sagittal and coronal reconstructions were done. CT imaging was performed with iterative reconstruction technique and/or automated exposure control to reduce radiation dose. FINDINGS: HEPATOBILIARY: No focal hepatic lesions. No biliary ductal dilation. GALLBLADDER: Absent. No fluid collections in the gallbladder fossa. SPLEEN: No splenomegaly. PANCREAS: No focal masses or ductal dilation. ADRENALS: No adrenal nodules. KIDNEYS: No hydronephrosis, stones or solid masses. PERITONEUM/RETROPERITONEUM: No free air or fluid. No lymphadenopathy. ABDOMINAL AORTA/IVC: No aneurysm or dissection. GI TRACT: Visualized portions of the bowel demonstrate no distention or wall thickening. The appendix is normal. There are no signs of diverticulitis. PELVIC ORGANS/BLADDER: Left inguinal hernia contains a segment of the sigmoid colon. No signs of bowel wall thickening or pneumatosis within the hernia sac. Urinary bladder is fluid-filled. Prostate gland measures 5.8 cm in diameter. BONES AND SOFT TISSUES: No acute abnormality. VISUALIZED LOWER CHEST: Mild atelectasis of the right lung base. IMPRESSION: Left inguinal hernia contains a segment of the sigmoid colon without signs of bowel obstruction or strangulation. Postoperative changes of cholecystectomy without fluid collections. [id number] Performing Organization Address City/State/Zipcode Phone Number [facility] [address] [place] [address] ECG 12 lead (09/26/2017 3:13 PM) Ventricular rate 58 [facility] Atrial rate 58 [facility] WI interval 168 [facility] QRSD interval 90 [facility] QT interval 406 [facility] QTC interval 398 [facility] P axis 1 56 [facility] QRS axis 1 8 [facility] T wave axis 25 [facility] EKG impression Sinus bradycardia-Otherwise normal ECG-In [facility] automated comparison with ECG of 09-JUN-2010 12:22,-No significant change was found- Performing Organization Address City/[facility]/Zipcode Phone Number [facility] [address] [place] [address] XR Abdomen Acute Inc Chest (09/26/2017 2:15 PM) Narrative Performed At EXAM:XR ABDOMEN ACUTE INC CHEST [facility] HISTORY:ABDOMINAL PAIN COMPARISON:None available IMPRESSION: 1. The lungs are clear of acute infiltrate, consolidation, or pleural effusion. 2. The cardiac silhouette is not enlarged. Pulmonary vasculature is within normal limits. 3. Bowel gas pattern is nonobstructive. Moderate retained fecal material is in the colon and rectum. 4. The visualized osseous structures are intact. 5. Surgical clips project over the right upper quadrant suggesting prior cholecystectomy. [facility]-[id number] Procedure Note Interface, Radiology Results Incoming - 09/26/2017 2:21 PM 411 DIRECTORY ASSISTANCE OPERATOR EXAM: XR ABDOMEN ACUTE INC CHEST HISTORY: ABDOMINAL PAIN COMPARISON: None available IMPRESSION: 1. The lungs are clear of acute infiltrate, consolidation, or pleural effusion. 2. The cardiac silhouette is not enlarged. Pulmonary vasculature is within normal limits. 3. Bowel gas pattern is nonobstructive. Moderate retained fecal material is in the colon and rectum. 4. The visualized osseous structures are intact. 5. Surgical clips project over the right upper quadrant suggesting prior cholecystectomy. [facility]-[id number] Performing Organization Address City/[facility]/Zipcode Phone Number [facility] [address] [place] [address] Urine culture (09/26/2017 2:10 PM) Urine culture SEE COMMENTComment: Bacteriuria [facility] DEPARTMENT OF PATHOLOGY screen negative. AND GENOMIC MEDICINE Performing Organization Address City/State/Zipcode Phone Number [facility] DEPARTMENT OF PATHOLOGY [address] [place] [address] AND GENOMIC MEDICINE Urinalysis screen and microscopy, with reflex to culture (09/26/2017 2:00 PM) Specimen site Clean catch [facility] DEPARTMENT OF PATHOLOGY AND GENOMIC MEDICINE Color, UA Yellow [facility] DEPARTMENT OF PATHOLOGY AND GENOMIC MEDICINE Appearance, UA Clear [facility] DEPARTMENT OF PATHOLOGY AND GENOMIC MEDICINE Specific gravity, UA 1.009 1.001 - 1.030 [facility] DEPARTMENT OF PATHOLOGY AND GENOMIC MEDICINE pH, UA 8.0 5.0 - 9.0 [facility] DEPARTMENT OF PATHOLOGY AND GENOMIC MEDICINE Protein, UA Negative Negative [facility] DEPARTMENT OF PATHOLOGY AND GENOMIC MEDICINE Glucose, UA Negative Negative [facility] DEPARTMENT OF PATHOLOGY AND GENOMIC MEDICINE Ketones, UA Negative Negative [facility] DEPARTMENT OF PATHOLOGY AND GENOMIC MEDICINE Bilirubin, UA Negative Negative [facility] DEPARTMENT OF PATHOLOGY AND GENOMIC MEDICINE Blood, UA Negative Negative [facility] DEPARTMENT OF PATHOLOGY AND GENOMIC MEDICINE Nitrite, UA Negative Negative [facility] DEPARTMENT OF PATHOLOGY AND GENOMIC MEDICINE Urobilinogen, UA <2.0 <2.0 E.U./dL [facility] DEPARTMENT OF PATHOLOGY AND GENOMIC MEDICINE Leukocyte esterase, UA Negative Negative [facility] DEPARTMENT OF PATHOLOGY AND GENOMIC MEDICINE WBC, UA 1 0 - 1 /HPF [facility] DEPARTMENT OF PATHOLOGY AND GENOMIC MEDICINE RBC, UA 1 0 - 1 /HPF [facility] DEPARTMENT OF PATHOLOGY AND GENOMIC MEDICINE Bacteria, UA None seen None seen [facility] DEPARTMENT OF PATHOLOGY AND GENOMIC MEDICINE Yeast, UA None seen [facility] DEPARTMENT OF PATHOLOGY AND GENOMIC MEDICINE Yeast with pseudohyphae, UA None seen [facility] DEPARTMENT OF PATHOLOGY AND GENOMIC MEDICINE Specimen Urine Performing Organization Address [facility] Phone Number [facility] DEPARTMENT PATHOLOGY [address] [place] [address] Prothrombin time with INR (09/26/2017 2:00 PM) Prothrombin time 12.9 12.0 - 15.0 sec [facility] DEPARTMENT OF PATHOLOGY AND GENOMIC MEDICINE INR 1.0 [facility] DEPARTMENT OF Comment: PATHOLOGY AND GENOMIC The International Normalized Ratio (INR) is a therapeutic MEDICINE monitoring tool for patients who are stable on oral anticoagulant therapy. An INR of 2.0-3.0 is suggested for deep vein thrombosis/pulmonary embolism. Specimen Blood Performing Organization Address City/[facility]/Zipcode Phone Number [facility] DEPARTMENT PATHOLOGY [address] [place] [address] CBC with platelet and differential (09/26/2017 2:00 PM) WBC 10.9 4.5 - 11.0 k/uL [facility] DEPARTMENT OF PATHOLOGY AND GENOMIC MEDICINE RBC 5.39 4.40 - 6.00 m/uL [facility] DEPARTMENT OF PATHOLOGY AND GENOMIC MEDICINE HGB 16.3 14.0 - 18.0 g/dL [facility] DEPARTMENT OF PATHOLOGY AND GENOMIC MEDICINE HCT 47.8 41.0 - 51.0 % [facility] DEPARTMENT OF PATHOLOGY AND GENOMIC MEDICINE MCV 88.7 82.0 - 100.0 fL [facility] DEPARTMENT OF PATHOLOGY AND GENOMIC MEDICINE MCH 30.2 27.0 - 34.0 pg [facility] DEPARTMENT OF PATHOLOGY AND GENOMIC MEDICINE MCHC 34.1 31.0 - 37.0 g/dL [facility] DEPARTMENT OF PATHOLOGY AND GENOMIC MEDICINE RDW - SD 43.4 37.0 - 55.0 fL [facility] DEPARTMENT OF PATHOLOGY AND GENOMIC MEDICINE MPV 9.4 6.9 - 11.0 fL [facility] DEPARTMENT OF PATHOLOGY AND GENOMIC MEDICINE Platelet count 454 (H) 150 - 400 K/uL [facility] DEPARTMENT OF PATHOLOGY AND GENOMIC MEDICINE Nucleated RBC 0.00 /100 WBC [facility] DEPARTMENT OF PATHOLOGY AND GENOMIC MEDICINE Neutrophils 67.2 39.0 - 69.0 % [facility] DEPARTMENT OF PATHOLOGY AND GENOMIC MEDICINE Lymphocytes 20.5 (L) 25.0 - 45.0 % [facility] DEPARTMENT OF PATHOLOGY AND GENOMIC MEDICINE Monocytes 9.6 0.0 - 10.0 % [facility] DEPARTMENT OF PATHOLOGY AND GENOMIC MEDICINE Eosinophils 1.4 0.0 - 5.0 % [facility] DEPARTMENT OF PATHOLOGY AND GENOMIC MEDICINE Basophils 0.6 0.0 - 1.0 % [facility] DEPARTMENT OF PATHOLOGY AND GENOMIC MEDICINE Immature granulocytes 0.7 0.0 - 1.0 % [facility] DEPARTMENT OF PATHOLOGY AND GENOMIC MEDICINE Specimen Blood Performing Organization Address [facility] Phone Number [facility] DEPARTMENT OF PATHOLOGY [id number] [place] [address] AND [facility] Lipase level (09/26/2017 2:00 PM) Lipase 71 (H) 13 - 60 U/L [facility] [facility]PART[facility]OLOG[facility]OMIC MEDICINE Specimen Plasma specimen Performing Organization Address City/[facility]/Zipcode Phone Number [facility] DEPARTMENT OF PATHOLOGY [address] [place] [id number] AND GENOMIC MEDICINE after 05/11/2017 Insurance Payer Benefit Plan / Group Subscriber ID Type Phone Address BCBS BCBS CHOICE PPO/FEDERAL EMPL PPO xxxxxxxxxxxx PPO [phone] [address]
--- NOTE | 2018-05-12 15:32 | RAD REPORT ---
EXAM DESCRIPTION: CT - Head Brain Wo Cont - 05/12/2018 3:05 pm CLINICAL HISTORY: Weakness, possible CVA, presyncope COMPARISON: None. TECHNIQUE: Axial 5 mm thick images of the head were obtained without IV contrast. All CT scans are performed using dose optimization technique as appropriate and may include automated exposure control or mA/KV adjustment according to patient size. FINDINGS: No intracranial hemorrhage, mass, edema or shift of mid-line structures. No acute infarcti on changes seen. Atrophy and chronic ischemic changes are minimal. Arterial and physiologic calcifica tions are present. Ventricles are normal. Mastoid air cells and visualized portions of the paranasal sinuses are clear. No acute bony findings. IMPRESSION: Negative non-contrast CT head examination.
[2018-05-12 15:36] LABS: Urine Blood NEGATIVE (NEG); Urine Glucose NEGATIVE (NEG); Urine Protein NEGATIVE (NEG); Urine Specific Gravity 1.015 (1.005-1.030); Urine pH 6.5 (5.0-7.0)
--- NOTE | 2018-05-12 15:41 | RAD REPORT ---
EXAM DESCRIPTION: RAD - Chest Single View - 05/12/2018 3:13 pm CLINICAL HISTORY: Dyspnea COMPARISON: December 29 TECHNIQUE: AP portable chest image was obtained 1503 hours . FINDINGS: Lungs are clear. Heart and vasculature are normal. No measurable pleural effusion and no p neumothorax. No gross bony abnormality seen. No acute aortic findings suspected. IMPRESSION: No acute cardiopulmonary process. No significant change from the comparison study.
[2018-05-12 15:45] LABS: Absolute Lymphocytes (CBC) 3.1 K/uL (0.7-4.9); Absolute Monocytes 0.8 K/uL (0.1-1.3); Absolute Neutrophil 7.9 K/uL (1.8-8.0); Basophils % 0.4 % (0-1.3); Eosinophils % 3.1 % (0-4.4); Hematocrit 42.6 % (39.6-49.0); Lymphocytes % 25.6 % (15.3-44.8); MCH 30.9 pg (27.0-35.0); MPV 8.4 fL (7.6-11.3); Monocytes % 6.6 % (3.3-12.3); RBC Red Blood Cell Count 4.73 M/uL (4.33-5.43)
[2018-05-12 15:53] LABS: Protime INR 1.05
[2018-05-12 16:04] LABS: Magnesium 1.8 mg/dL (1.8-2.4); Potassium 4.1 mmol/L (3.5-5.1)
--- NOTE | 2018-05-12 16:53 | EDPHYS ---
Physician Documentation [facility] Name: Morris Bowman Age: 62 yrs Sex: Male : 1955 Arrival Date: 05/12/2018 Time: 14:07 Bed 19 Private MD: out of town, doctor ED Physician Willis Jacob HPI: 05/12 16:32 This 62 yrs old Male presents to ER via Wheelchair with complaints of Doesn't kb Feel Right. 16:32 The patient has shortness of breath at rest. Onset: The symptoms/episode began/occurred kb 15 minute(s) ago. Duration: The symptoms are continuous, but are markedly better than the original presentation. The patient's shortness of breath is aggravated by nothing, is alleviated by drinking protein drink. Associated signs and symptoms: Pertinent positives: "feeling bad". Severity of symptoms: At their worst the symptoms were moderate in the emergency department the symptoms have resolved. The patient has experienced similar episodes in the past, several times. The patient has not recently seen a physician. 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 States he felt like he normally does when his sugar is low so he drank a protein drink and started feeling better after about 15 min. Historical: - Allergies: 14:11 Codeine; la1 - Home Meds: 14:47 Metoprolol Tartrate 12.5 mg Oral 2 times per day [Active]; Janumet XR 50-1,000 mg oral iw TM24 1 tab once daily [Active]; atorvastatin 80 mg oral tab 1 tab once daily [Active]; BRILINTA 90 mg oral tab 1 tab 2 times per day [Active]; Edarbi 80 mg oral tab 1 tab once daily [Active]; aspirin 81 mg Oral TbEC 1 tab once daily [Active]; - PMHx: 14:11 allergies; constipation; Diabetes - NIDDM; Hypertension; la1 - PSHx: 14:47 Cholecystectomy; Hernia repair; iw - Immunization history:: Adult Immunizations up to date. - Social history:: Smoking status: Patient uses tobacco products, smokes one pack cigarettes per day. - Ebola Screening: : No symptoms or risks identified at this time. ROS: 16:31 Constitutional: Negative for fever, chills, and weight loss, Eyes: Negative for injury, kb pain, redness, and discharge, ENT: Negative for injury, pain, and discharge, Neck: Negative for injury, pain, and swelling, Cardiovascular: Negative for chest pain, palpitations, and edema, Abdomen/GI: Negative for abdominal pain, nausea, vomiting, diarrhea, and constipation, Back: Negative for injury and pain, : Negative for injury, bleeding, discharge, and swelling, MS/Extremity: Negative for injury and deformity, Skin: Negative for injury, rash, and discoloration. 16:31 Respiratory: Positive for shortness of breath. 16:31 Neuro: Positive for weakness. Exam: 16:31 Constitutional: This is a well developed, well nourished patient who is awake, alert, kb and in no acute distress. Head/Face: Normocephalic, atraumatic. Eyes: Pupils equal round and reactive to light, extra-ocular motions intact. Lids and lashes normal. Conjunctiva and sclera are non-icteric and not injected. Cornea within normal limits. Periorbital areas with no swelling, redness, or edema. ENT: Nares patent. No nasal discharge, no septal abnormalities noted. Tympanic membranes are normal and external auditory canals are clear. Oropharynx with no redness, swelling, or masses, exudates, or evidence of obstruction, uvula midline. Mucous membranes moist. Neck: Trachea midline, no thyromegaly or masses palpated, and no cervical lymphadenopathy. Supple, full range of motion without nuchal rigidity, or vertebral point tenderness. No Meningismus. Chest/axilla: Normal chest wall appearance and motion. Nontender with no deformity. No lesions are appreciated. Cardiovascular: Regular rate and rhythm with a normal S1 and S2. No gallops, murmurs, or rubs. Normal PMI, no JVD. No pulse deficits. Respiratory: Lungs have equal breath sounds bilaterally, clear to auscultation and percussion. No rales, rhonchi or wheezes noted. No increased work of breathing, no retractions or nasal flaring. Abdomen/GI: Soft, non-tender, with normal bowel sounds. No distension or tympany. No guarding or rebound. No evidence of tenderness throughout. Skin: Warm, dry with normal turgor. Normal color with no rashes, no lesions, and no evidence of cellulitis. MS/ Extremity: Pulses equal, no cyanosis. Neurovascular intact. Full, normal range of motion. Neuro: Awake and alert, GCS 15, oriented to person, place, time, and situation. Cranial nerves II-XII grossly intact. Motor strength 5/5 in all extremities. Sensory grossly intact. Cerebellar exam normal. Normal gait. Vital Signs: 14:11 BP 145 / 70; Pulse 65; Resp 16; Temp 97.6(TE); Pulse Ox 98% on R/A; Weight 108.86 kg; la1 Height 6 ft. 3 in. (190.50 cm); 15:45 BP 126 / 67; Pulse 62; Resp 16; Pulse Ox 97% on R/A; Pain 0/10; em 16:45 BP 144 / 71; Pulse 68; Resp 15; Pulse Ox 99% on R/A; em 14:11 Body Mass Index 30.00 (108.86 kg, 190.50 cm) la1 MDM: 14:35 Patient medically screened. kb 16:31 Data reviewed: vital signs, nurses notes. Data interpreted: Pulse oximetry: on room air kb is 97 %. Interpretation: normal. Counseling: I had a detailed discussion with the patient and/or guardian regarding: the historical points, exam findings, and any diagnostic results supporting the discharge/admit diagnosis, lab results, radiology results, the need for outpatient follow up, a family practitioner, to return to the emergency department if symptoms worsen or persist or if there are any questions or concerns that arise at home. 16:49 ED course: Pt states he is feeling good now. States he started a new medication regimen kb this week for his blood sugar and hasn't been checking it because he wants the medication to get in his system good. Educated to keep blood sugar log to take to PCP. Educated to return for worsening symptoms or other concerns. . 05/12 14:50 Order name: Basic Metabolic Panel; Complete Time: 16:05 kb 05/12 14:50 Order name: CBC with Diff; Complete Time: 15:56 kb 05/12 14:50 Order name: Ckmb; Complete Time: 16:05 kb 05/12 14:50 Order name: CPK; Complete Time: 16:05 kb 05/12 14:50 Order name: Magnesium; Complete Time: 16:05 kb 05/12 14:50 Order name: NT PRO-BNP; Complete Time: 16:05 kb 08/17 14:50 Order name: PT-INR; Complete Time: 15:56 kb 05/12 14:50 Order name: Ptt, Activated; Complete Time: 15:56 kb 05/12 14:50 Order name: Troponin (emerg Dept Use Only); Complete Time: 16:04 kb 05/12 14:50 Order name: XRAY Chest (1 view); Complete Time: 15:42 kb 05/12 14:50 Order name: EKG; Complete Time: 14:50 kb 05/12 14:50 Order name: Cardiac monitoring; Complete Time: 14:51 kb 05/12 14:50 Order name: CT Head Brain wo Cont; Complete Time: 15:33 kb 05/12 15:33 Order name: Urine Dipstick--Ancillary (enter results); Complete Time: 15:42 ag 05/12 14:50 Order name: EKG - Nurse/Tech; Complete Time: 14:51 kb 05/12 14:50 Order name: IV Saline Lock; Complete Time: 15:57 kb 05/12 14:50 Order name: Labs collected and sent; Complete Time: 15:57 kb 05/12 14:50 Order name: O2 Per Protocol; Complete Time: 14:51 kb 05/12 14:50 Order name: O2 Sat Monitoring; Complete Time: 14:51 kb 05/12 14:50 Order name: Urine Dipstick-Ancillary (obtain specimen); Complete Time: 15:57 kb Administered Medications: No medications were administered Point of Care Testing: Blood Glucose: 14:18 Blood Glucose: 103 mg/dL; la1 Ranges: Critical Glucose Levels:Adult <50 mg/dl or >400 mg/dl <40 mg/dl or >180 mg/dl Disposition: 05/13 15:47 Co-signature as Attending Physician, Willis Jacob MD. Disposition: 05/12/18 16:52 Discharged to Home. Impression: Dyspnea. - Condition is Stable. - Discharge Instructions: Shortness of Breath, [id number]-[id number], Panic Attacks, Prxt-bc-Cial, Hypoglycemia, [id number]. - Medication Reconciliation Form, Thank You Letter, Antibiotic Education, Prescription Opioid Use form. - Follow up: Emergency Department; When: As needed; Reason: Worsening of condition. Follow up: Private Physician; When: 2 - 3 days; Reason: Recheck today's complaints, Continuance of care, Re-evaluation by your physician. Signatures: Dispatcher [employer] Shelby Agosto, MEDICAL PRACTICE ASSISTANT-C MEDICAL PRACTICE ASSISTANT-Ckb Alireza Gooden, SERVER SOFTWARE ENGINEER SERVER SOFTWARE ENGINEER em Daria Rivas RN RN iw Michael Morgan RN RN la1 Willis Jacob MD MD gs Corrections: (The following items were deleted from the chart) 05/12 17:09 16:52 05/12/2018 16:52 Discharged to Home. Impression: Dyspnea. Condition is Stable. em Forms are Medication Reconciliation Form, Thank You Letter, Antibiotic Education, Prescription Opioid Use. Follow up: Emergency Department; When: As needed; Reason: Worsening of condition. Follow up: Private Physician; When: 2 - 3 days; Reason: Recheck today's complaints, Continuance of care, Re-evaluation by your physician. kb
--- NOTE | 2018-05-12 16:53 | ER ---
Nurse's Notes [facility] Name: Morris Bowman Age: 62 yrs Sex: Male : 1955 Arrival Date: 05/12/2018 Time: 14:07 Bed 19 Private MD: out of town, doctor Diagnosis: Dyspnea Presentation: 05/12 14:10 Presenting complaint: Patient states: About 30 minutes ago I felt really funny, la1 states he was breathing faster. Transition of care: patient was not received from another setting of care. Onset of symptoms was May 12, 2018. Risk Assessment: Do you want to hurt yourself or someone else? Patient reports no desire to harm self or others. Initial Sepsis Screen: Does the patient meet any 2 criteria? No. Patient's initial sepsis screen is negative. Does the patient have a suspected source of infection? No. Patient's initial sepsis screen is negative. Care prior to arrival: None. 14:10 Method Of Arrival: Wheelchair la1 14:10 Acuity: ALEKSANDRA 3 la1 Historical: - Allergies: 14:11 Codeine; la1 - Home Meds: 14:47 Metoprolol Tartrate 12.5 mg Oral 2 times per day [Active]; Janumet XR 50-1,000 mg oral iw TM24 1 tab once daily [Active]; atorvastatin 80 mg oral tab 1 tab once daily [Active]; BRILINTA 90 mg oral tab 1 tab 2 times per day [Active]; Edarbi 80 mg oral tab 1 tab once daily [Active]; aspirin 81 mg Oral TbEC 1 tab once daily [Active]; - PMHx: 14:11 allergies; constipation; Diabetes - NIDDM; Hypertension; la1 - PSHx: 14:47 Cholecystectomy; Hernia repair; iw - Immunization history:: Adult Immunizations up to date. - Social history:: Smoking status: Patient uses tobacco products, smokes one pack cigarettes per day. - Ebola Screening: : No symptoms or risks identified at this time. Screenin:46 Abuse screen: Denies threats or abuse. Nutritional screening: No deficits noted. em Tuberculosis screening: No symptoms or risk factors identified. Fall Risk None identified. Assessment: 15:30 General: Appears in no apparent distress. comfortable, Behavior is calm, cooperative. em Pain: Denies pain. Neuro: Level of Consciousness is awake, alert, obeys commands, Oriented to person, place, time, situation, Moves all extremities. Speech is normal, Facial symmetry appears normal, Intact. Cardiovascular: Denies chest pain, Heart tones S1 S2 present Capillary refill < 3 seconds Patient's skin is warm and dry. Rhythm is regular. Respiratory: Airway is patent Respiratory effort is even, unlabored, Respiratory pattern is regular, symmetrical, Breath sounds are clear bilaterally. GI: Abdomen is round non-distended, Patient currently denies nausea, vomiting. : No signs and/or symptoms were reported regarding the genitourinary system. EENT: No signs and/or symptoms were reported regarding the EENT system. Derm: Skin is intact, Skin is pink, warm \T\ dry. Musculoskeletal: Range of motion: intact in all extremities. 15:45 Reassessment: Patient appears in no apparent distress at this time. I agree with above iw assessment by Alireza Gooden LVN. 16:23 Reassessment: Patient appears in no apparent distress at this time. Patient and/or em family updated on plan of care and expected duration. Pain level reassessed. Patient is alert, oriented x 3, equal unlabored respirations, skin warm/dry/pink. Patient denies pain at this time. Patient states symptoms have improved. 16:43 Reassessment: Patient and/or family updated on plan of care and expected duration. Pain em level reassessed. Patient is alert, oriented x 3, equal unlabored respirations, skin warm/dry/pink. pillow given to pt. Vital Signs: 14:11 BP 145 / 70; Pulse 65; Resp 16; Temp 97.6(TE); Pulse Ox 98% on R/A; Weight 108.86 kg; la1 Height 6 ft. 3 in. (190.50 cm); 15:45 BP 126 / 67; Pulse 62; Resp 16; Pulse Ox 97% on R/A; Pain 0/10; em 16:45 BP 144 / 71; Pulse 68; Resp 15; Pulse Ox 99% on R/A; em 14:11 Body Mass Index 30.00 (108.86 kg, 190.50 cm) la1 ED Course: 14:07 Patient arrived in ED. mr 14:07 out of town, doctor is Private Physician. mr 14:11 Triage completed. la1 14:11 Arm band placed on left wrist. la1 14:35 Orlin, Shelby, PHARMACY SCHEDULER-C is PHCP. kb 14:35 Willis Jacob MD is Attending Physician. kb 14:46 Alireza Gooden LVN is Primary Nurse. em 14:46 Patient has correct armband on for positive identification. Placed in gown. Bed in low em position. Call light in reach. 14:52 EKG done, by bench technician. reviewed by Shelby MOHAMUD. dt2 15:05 CT completed. Patient tolerated procedure well. Patient moved to CT via stretcher. Patient moved back from CT. 15:06 CT Head Brain wo Cont In Process Unspecified. EDMS 15:15 XRAY Chest (1 view) In Process Unspecified. EDMS 15:40 Initial lab(s) drawn, by me, sent to lab. Urine collected: clean catch specimen, clear. em Inserted saline lock: 20 gauge in right antecubital area, using aseptic technique. Blood collected. 17:07 No provider procedures requiring assistance completed. IV discontinued, intact, em bleeding controlled, No redness/swelling at site. Pressure dressing applied. Administered Medications: No medications were administered Point of Care Testing: Blood Glucose: 14:18 Blood Glucose: 103 mg/dL; la1 Ranges: Outcome: 16:52 Discharge ordered by . kb 17:07 Discharged to home ambulatory. em 17:07 Condition: good 17:07 Discharge instructions given to patient, family, Instructed on discharge instructions, follow up and referral plans. Demonstrated understanding of instructions, follow-up care. 17:09 Patient left the ED. em Signatures: Dispatcher [employer] EDNY Shelby Ordaz FNP-C FNP-Ckb Rivera, Maria Ahmet Fierro Alireza Gooden, DARRIAN TMD TEACHER em Daria Rivas, RN ROSI iw Michael Morgan RN RN Marlene Dowd dt2
--- NOTE | 2018-05-12 17:11 | EKG ---
Test Date: 2018-05-12 Test Time: 14:43:53 Melt Helper: SHANE MEASUREMENT RESULTS: Intervals: Rate: 63 KS: 184 QRSD: 92 QT: 378 QTc: 386 Ehrhardt: P: 53 KS: 184 QRS: 6 T: 61 INTERPRETIVE STATEMENTS: Normal sinus rhythm Normal ECG Compared to ECG 12/30/2017 03:14:10 Sinus bradycardia no longer present Electronically Signed On 05-12-18 17:10:22 CDT by Willard Duarte
[2018-05-12 17:15] VITALS: TEMP 97.6
[2018-05-12 17:18] VITALS: BP 144/71; O2SAT 99
== END 2018-05-12 17:09 | disposition home or self-care (01) ==
LOC: ER 14:05
DX: R06.00 Dyspnea, unspecified (principal); I10 Essential (primary) hypertension; E11.9 Type 2 diabetes mellitus without complications; F17.210 Nicotine dependence, cigarettes, uncomplicated; Z79.82 Long term (current) use of aspirin; Z88.5 Allergy status to narcotic agent
CPT/HCPCS: 36415; 70450; 71045; 80048; 81003; 82550; 82553; 82962; 83735; 83880; 84484; 85025; 85610; 85730; 93005; 99284

== ENCOUNTER 2018-12-30 04:02 | Observation (INO) | payer BC, OTHER ==
--- OUTSIDE RECORDS SUMMARY | 2018-12-30 04:04 | XMS REPORT | Clinical Summary ---
:1955 Author Organization [facility] Address [address] [place] [address] Care Team Providers Name Role Phone Markie Wong MD Primary Care Provider Allergies Active Allergy Reactions Severity Noted Date Comments Codeine GI Intolerance 09/26/2017 Bad dreams Medications Medication Sig Dispensed Refills Start Date End Date Status senna (SENOKOT) 8.6 mg Take 1 tablet by 0 Active tablet mouth daily. pantoprazole (PROTONIX) Take 40 mg by 0 Active 40 MG EC tablet mouth daily. lisinopril Take 5 mg by 0 Active (PRINIVIL,ZESTRIL) 5 mg mouth daily. tablet JANUMET XR 100-1,000 mg TK 1 T PO D 3 10/10/2017 Active tablet, ER multiphase 24 hr Active Problems No known active problems Social History Tobacco Use Types Packs/Day Years Used Date Former Smoker Smokeless Tobacco: Never Used Alcohol Use Drinks/Week oz/Week Comments No Sex Assigned at Date Recorded Not on file Job Start Date Occupation Industry Not on file Not on file Not on file Travel History Travel Start Travel End No recent travel history available. Last Filed Vital Signs Not on file Plan of Treatment Health Maintenance Due Date Last Done Comments COLON CANCER SCREENING 2003 SHINGLES VACCINES (#1) 2003 65+ PNEUMOCOCCAL VACCINE (1 of 2 - PCV13) 2018 PNEUMOCOCCAL POLYSACCHARIDE VACCINE AGE 65 AND OVER 2018 INFLUENZA VACCINE 04/26/2019 Implants Implanted Type Area Radio Tower Technician Device Shelf Model / Identifier Expiration Serial / Date Lot Mesh Hrnia Rpr 2x12in Flat Shet Ppe Soft-Tissue Ventrl - [id number] Surgical Left: [employer] 04/22/2022 [id number] / Implanted: Qty: 1 on 10/31/2017 by Elisha Murillo MD Mesh or Groin / Tissue Barrier [employer] Plug Hrnia Rpr Perfix Lg 1.6x1.9in - [id number] Surgical N/A: N/A [employer] 07/23/2022 [id number] / Implanted: Qty: 1 on 10/31/2017 by Elisha Murillo MD Mesh or / Tissue [id number] Barrier Products Results Not on fileafter 12/29/2017 Insurance Payer Benefit Plan / Group Subscriber ID Type Phone Address BCBS BCBS CHOICE PPO/FEDERAL EMPL PPO xxxxxxxxxxxx PPO (Home) [place] [address] Advance Directives Patient has advance care planning documents on file. For more information, please contact:Sampson Mccoy[address] [place] [address]
[2018-12-30] MEDS ORDERED: MEPERIDINE HCL 50 MG/ML AMP ONE (05:30)
[2018-12-30] MEDS ORDERED: NA CHLORIDE 0.9% 1,000 ML ONE ×2 (05:31→08:03)
[2018-12-30] MEDS ORDERED: ONDANSETRON 4 MG/2 ML VIAL ONE (05:31)
[2018-12-30 05:37] LABS: Absolute Lymphocytes (CBC) 1.3 K/uL (0.7-4.9); Absolute Monocytes 0.8 K/uL (0.1-1.3); Absolute Neutrophil 16.4 K/uL (1.8-8.0); Basophils % 0.2 % (0-1.3); Eosinophils % 1.4 % (0-4.4); Hematocrit 44.9 % (39.6-49.0); Lymphocytes % 7.1 % (15.3-44.8); MPV 8.7 fL (7.6-11.3); Monocytes % 4.5 % (3.3-12.3); RBC Red Blood Cell Count 4.97 M/uL (4.33-5.43)
[2018-12-30 05:46] LABS: Bilirubin Direct 0.2 mg/dL (0-0.2); Bilirubin Total 0.7 mg/dL (0.2-1.0); Potassium 4.1 mmol/L (3.5-5.1); Protein, Total 7.8 g/dL (6.4-8.2)
[2018-12-30 06:04] LABS: Blood Morphology Comment NOTED (NOT SEEN); Platelet Estimate ADEQ; Polychromasia 1+
[2018-12-30] MEDS ORDERED: ACETAMINOPHEN 500 MG TAB ONE (07:25)
[2018-12-30] MEDS ORDERED: Levofloxacin500mg IV 500 MG/100 ML BAG IV ONE (08:03)
[2018-12-30] MEDS ORDERED: PIPER/TAZO/NS 3.375gm 3.375 GM/100 ML BAG ONE (08:03)
--- NOTE | 2018-12-30 08:04 | RAD REPORT ---
EXAM DESCRIPTION: CT - Abdomen Pelvis W Contrast - 12/30/2018 7:48 am CLINICAL HISTORY: Abdominal pain COMPARISON: None. TECHNIQUE: Biphasic, helical CT imaging of the abdomen and pelvis was performed following 100 ml non -ionic IV contrast. Oral contrast was given. All CT scans are performed using dose optimization technique as appropriate and may include automated exposure control or mA/KV adjustment according to patient size. FINDINGS: Interstitial and airspace opacification is present in the anterior base right middle lobe. There is some minimal opacification in the inferior aspect right upper lobe and the right lower lobe not fully imaged on this CT abdomen study. No pericardial thickening or effusion. The liver, spleen, and pancreas show no suspicious findings. Cholecystectomy clips are present. No bi liary tree dilatation. Symmetric renal function is seen with no hydronephrosis or suspicious renal mass. No pyelonephritis o r acute parenchymal process. No adrenal abnormalities. Prostate gland is enlarged without invasion of the anterior rectal wall or pelvic side wall. There is a lobulated superior margin of the prostate gland near the trigone of the bladder. This masslike den sity could be prostatic hypertrophy or less likely bladder mass near the trigone. Correlation with PS A values may be needed. Bladder sonography or cystoscopy may be needed as well for further evaluation . No gastric dilatation or wall thickening. No acute small bowel finding. Appendix is normal. There is a large amount of stool filling but not dilating the colon. No colon wall thickening or mass. Sigmoid colon is tortuous and redundant. No free air, free fluid or inflammatory stranding. No mass or bulky lymphadenopathy. Soft tissue t hickening is present at the origin of the left inguinal canal. A portion of the tortuous sigmoid colo n abuts the origin of the inguinal canal. No extension of bowel into the inguinal canal. No surgical clips are present in this region. This may be fold left inguinal hernia repair. Correlation is needed for any left lower quadrant/ left inguinal canal pain symptoms. No suspicious bony findings. IMPRESSION: Right lung base pneumonia. Large stool volume filling but not dilating the colon. No acute colon process identified. Lobulated prostate projecting into the bladder base versus bladder base mass. Correlation with PSA v alues may be helpful. Follow-up outpatient bladder sonography or cystoscopy may be needed for further assessment. Soft tissue thickening of the left inguinal canal origin with sigmoid colon abutting the origin of th e inguinal canal. This may be old hernia repair change. Adhesion of the bowel to a surgical site not excluded. Correlation is needed with any left lower quadrant or inguinal canal pain symptoms.
--- NOTE | 2018-12-30 08:08 | RAD REPORT ---
EXAM DESCRIPTION: RAD - Chest Single View - 12/30/2018 5:54 am CLINICAL HISTORY: Abdominal pain COMPARISON: April 2018 TECHNIQUE: AP portable chest image was obtained 0538 hour . FINDINGS: Lung volumes are low. Airspace opacification is present in the mid and lower right lung fi eld. Left lung field is clear. Heart and vasculature are normal. No measurable pleural effusion and n o pneumothorax. No acute bony abnormality seen. No acute aortic findings suspected. IMPRESSION: Moderate-size right lower lung field pneumonia.
--- NOTE | 2018-12-30 08:16 | ER ---
Nurse's Notes [facility] Name: Morris Bowman Age: 63 yrs Sex: Male : 1955 Arrival Date: 12/30/2018 Time: 04:06 Bed 14 Private MD: Diagnosis: Fever, unspecified;Pneumonia due to other specified bacteria;Type 2 diabetes mellitus;Elevated white blood cell count;Abdominal tenderness Presentation: 12/30 04:20 Presenting complaint: Patient states: I started having abdominal pain at midnight jb4 tonight, with some nausea. 04:20 Transition of care: patient was not received from another setting of care. Onset of jb4 symptoms was December 30, 2018. Risk Assessment: Do you want to hurt yourself or someone else? Patient reports no desire to harm self or others. Initial Sepsis Screen: Does the patient meet any 2 criteria? HR > 90 bpm. Yes Does the patient have a suspected source of infection? No. Patient's initial sepsis screen is negative. Care prior to arrival: None. 04:20 Method Of Arrival: Ambulatory jb4 04:20 Acuity: ALEKSANDRA 3 jb4 Historical: - Allergies: 04:20 Codeine; jb4 - Home Meds: 04:20 Janumet XR 50-1,000 mg Oral TM24 1 tab once daily [Active]; atorvastatin 80 mg Oral tab jb4 1 tab once daily [Active]; Edarbi 40 mg oral tab 1 tab once daily [Active]; BRILINTA 90 mg Oral tab 1 tab 2 times per day [Active]; Metoprolol Tartrate 12.5 MG Oral 2 times per day [Active]; aspirin 81 mg Oral TbEC 1 tab once daily [Active]; Flonase Allergy Relief nasal nasal [Active]; Trulicity 1.5 mg/0.5 mL subcutaneous pnij 0.5 mL once wkly [Active]; - PMHx: 04:20 allergies; constipation; Diabetes - NIDDM; Hypertension; Hyperlipidemia; jb4 - PSHx: 04:20 Heart stents; Hernia repair; Cholecystectomy; Appendectomy; jb4 - Immunization history:: Adult Immunizations up to date, Flu vaccine is up to date. - Social history:: Smoking status: Patient/guardian denies using tobacco, the patient reports quitting approximately 1 years ago, Patient/guardian denies using alcohol. - Ebola Screening: : No symptoms or risks identified at this time. Screenin:25 Abuse screen: Denies threats or abuse. Nutritional screening: No deficits noted. jb4 Tuberculosis screening: No symptoms or risk factors identified. Fall Risk None identified. Assessment: 04:25 General: Appears in no apparent distress. comfortable, Behavior is calm, cooperative, jb4 appropriate for age. Pain: Complains of pain in abdomen Pain does not radiate. Pain currently is 5 out of 10 on a pain scale. Quality of pain is described as burning, crampy. Neuro: Level of Consciousness is awake, alert, obeys commands, Oriented to person, place, time, situation. Cardiovascular: Patient's skin is warm and dry. Respiratory: Airway is patent Respiratory effort is even, unlabored, Respiratory pattern is regular, symmetrical. GI: Abdomen is round non-distended, Bowel sounds present X 4 quads. Abd is soft and non tender X 4 quads. Reports lower abdominal pain, upper abdominal pain, nausea, Patient currently denies diarrhea, vomiting. : No signs and/or symptoms were reported regarding the genitourinary system. EENT: No signs and/or symptoms were reported regarding the EENT system. Derm: Skin is intact, Skin is pink, warm \T\ dry. Musculoskeletal: Circulation, motion, and sensation intact. 05:40 Reassessment: Patient appears in no apparent distress at this time. Patient and/or jb4 family updated on plan of care and expected duration. Pain level reassessed. Pt is resting in bed with at the bedside. reports feeling better with decreased nausea and pain. Respirations are even an unlabored, Alert and oriented x4. 06:48 Reassessment: Patient appears in no apparent distress at this time. Patient and/or jb4 family updated on plan of care and expected duration. Pain level reassessed. Patient is alert, oriented x 3, equal unlabored respirations, skin warm/dry/pink. Patient states feeling better. 07:05 Reassessment: oral temp. 102.1 at this time, provider notified, new medication ordered. em 09:25 Reassessment: Patient appears in no apparent distress at this time. Patient and/or em family updated on plan of care and expected duration. Pain level reassessed. Patient is alert, oriented x 3, equal unlabored respirations, skin warm/dry/pink. Dr. Villatoro at bedside. 09:35 Reassessment: pt request to take own home medications, Dr. Villatoro notified, instructed em to hold Janumet, pt administered own home meds. 09:51 Reassessment: Patient appears in no apparent distress at this time. Patient and/or em family updated on plan of care and expected duration. Pain level reassessed. Patient is alert, oriented x 3, equal unlabored respirations, skin warm/dry/pink. breakfast tray given, pending room assignment. 10:44 Reassessment: Patient appears in no apparent distress at this time. Patient and/or em family updated on plan of care and expected duration. Pain level reassessed. Patient is alert, oriented x 3, equal unlabored respirations, skin warm/dry/pink. Patient denies pain at this time. Patient states feeling better. Vital Signs: 04:20 BP 164 / 57; Pulse 94; Resp 20; Temp 97.4(O); Pulse Ox 97% on R/A; Weight 108.86 kg jb4 (R); Height 6 ft. 3 in. (190.50 cm); Pain 5/10; 05:35 Pulse Ox 92% on R/A; jb4 05:45 BP 128 / 60; Pulse 98; Resp 16; Pulse Ox 96% on 2 lpm NC; jb4 06:46 BP 133 / 63; Pulse 92; Resp 19; Pulse Ox 97% on R/A; oe 07:05 BP 116 / 60; Pulse 92; Resp 20; Temp 102.1; Pulse Ox 97% on 2 lpm NC; Pain 3/10; em 09:08 BP 114 / 53; Pulse 84; Resp 14; Temp 99.2(O); Pulse Ox 98% on 2 lpm NC; Pain 3/10; em 04:20 Body Mass Index 30.00 (108.86 kg, 190.50 cm) jb4 05:35 Desat after demerol administration, placed on 2L NC per protocol jb4 ED Course: 04:06 Patient arrived in ED. es 04:20 Arm band placed on left wrist. jb4 04:25 Patient has correct armband on for positive identification. Bed in low position. Call jb4 light in reach. Side rails up X 1. engine monitor on. Pulse ox on. NIBP on. 04:34 Gee Duval, RN is Primary Nurse. jb4 04:35 Will Thomas MD is Attending Physician. pkl 04:35 Triage completed. jb4 05:13 Inserted saline lock: 20 gauge in right forearm, using aseptic technique. Blood jb4 collected. 05:20 Initial lab(s) drawn, by me, sent to lab. EKG done, by dish technician. reviewed by Will Thomas MD.[email or web address] 05:55 XRAY CXR (1 view) In Process Unspecified. EDMS 07:[address] mw3 07:43 Attending Physician role handed off by Will Thomas MD zachery 07:43 Pete Kenyon MD is Attending Physician. zachery 07:48 CT completed. Patient tolerated procedure well. Patient moved back from CT. mw3 07:49 CT Abd/Pelvis - W/Contrast In Process Unspecified. EDMS 08:05 First set of blood cultures drawn by me. kj1 08:14 Claribel Villatoro MD is Hospitalizing Provider. zachery 08:25 Second set of blood cultures drawn by ms. em1 10:43 No provider procedures requiring assistance completed. Patient admitted, IV remains in em place. Administered Medications: 05:28 Drug: Zofran 4 mg Route: IVP; Site: right forearm; jb4 05:53 Follow up: Response: No adverse reaction; Nausea is decreased jb4 05:32 Drug: Demerol 50 mg Route: IVP; Site: right forearm; jb4 05:40 Follow up: Response: No adverse reaction; Pain is decreased jb4 05:36 Drug: NS 0.9% 1000 ml Route: IV; Rate: 125 ml/hr; Site: right forearm; jb4 10:46 Follow up: IV Status: Infusion continued upon admission; IV Intake: 600ml em 07:18 Drug: Tylenol 1000 mg Route: PO; em 09:07 Follow up: Response: No adverse reaction; Temperature is decreased em 08:08 Drug: NS 0.9% 1000 ml Route: IV; Rate: 1 bolus; Site: right forearm; em 09:22 Follow up: IV Status: Completed infusion; IV Intake: 1000ml em 08:15 Drug: Zosyn 3.375 grams Route: IVPB; Infused Over: 60 mins; Site: right forearm; em 09:21 Follow up: Response: No adverse reaction; IV Status: Completed infusion; IV Intake: em 100ml 09:21 Drug: levofloxacin 500 mg Volume: 100 ml; Route: IVPB; Infused Over: 60 mins; Site: em right forearm; 10:34 Follow up: IV Status: Completed infusion; IV Intake: 100ml em Point of Care Testing: Blood Glucose: 05:40 Blood Glucose: 165 mg/dL; oe Ranges: Intake: 09:21 IV: 100ml; Total: 100ml. em 09:22 IV: 1000ml; Total: 1100ml. em 10:34 IV: 100ml; Total: 1200ml. em 10:46 IV: 600ml; Total: 1800ml. em Outcome: 08:15 Decision to Hospitalize by Provider. zachery 10:43 Admitted to Med/surg accompanied by tech, family with patient, via wheelchair, room em 215, with oxygen, with chart, Report called to ROSI Moreno 10:43 Condition: good 10:43 Instructed on the need for admit, Demonstrated understanding of instructions. 10:45 Patient left the ED. em Signatures: Dispatcher [employer] EDPete De Oliveira MD MD cha Lam, Pin, MD MD pkl Salyer, Edna es Munoz, Edgar, WOUND TREATMENT RN WOUND TREATMENT RN em Rubens Epstein em1 Gee Duval, RN RN [email or web address] Jesús Moss Michelle mw3 Lavonne Ordaz kj1 Corrections: (The following items were deleted from the chart) 05:59 05:13 Initial lab(s) drawn, by ms, sent to lab. EKG done, jb4 jb4
--- NOTE | 2018-12-30 08:16 | EDPHYS ---
Physician Documentation [facility] Name: Morris Bowman Age: 63 yrs Sex: Male : 1955 Arrival Date: 12/30/2018 Time: 04:06 Bed 14 Private MD: Pete Eugene HPI: 12/30 05:09 This 63 yrs old Male presents to ER via Ambulatory with complaints of pkl Abdominal Pain. 05:09 The patient presents with abdominal pain that is diffuse. Onset: The symptoms/episode pkl began/occurred just prior to arrival, 4 hour(s) ago. The symptoms do not radiate. Associated signs and symptoms: Pertinent positives: nausea, pain right shoulder. Historical: - Allergies: 04:20 Codeine; jb4 - Home Meds: 04:20 Janumet XR 50-1,000 mg Oral TM24 1 tab once daily [Active]; atorvastatin 80 mg Oral tab jb4 1 tab once daily [Active]; Edarbi 40 mg oral tab 1 tab once daily [Active]; BRILINTA 90 mg Oral tab 1 tab 2 times per day [Active]; Metoprolol Tartrate 12.5 MG Oral 2 times per day [Active]; aspirin 81 mg Oral TbEC 1 tab once daily [Active]; Flonase Allergy Relief nasal nasal [Active]; Trulicity 1.5 mg/0.5 mL subcutaneous pnij 0.5 mL once wkly [Active]; - PMHx: 04:20 allergies; constipation; Diabetes - NIDDM; Hypertension; Hyperlipidemia; jb4 - PSHx: 04:20 Heart stents; Hernia repair; Cholecystectomy; Appendectomy; jb4 - Immunization history:: Adult Immunizations up to date, Flu vaccine is up to date. - Social history:: Smoking status: Patient/guardian denies using tobacco, the patient reports quitting approximately 1 years ago, Patient/guardian denies using alcohol. - Ebola Screening: : No symptoms or risks identified at this time. ROS: 05:09 Eyes: Negative for injury, pain, redness, and discharge, ENT: Negative for injury, pkl pain, and discharge, Neck: Negative for injury, pain, and swelling, Cardiovascular: Negative for chest pain, palpitations, and edema, Respiratory: Negative for shortness of breath, cough, wheezing, and pleuritic chest pain. 05:09 Abdomen/GI: Positive for abdominal pain, nausea, of the right upper quadrant, left upper quadrant, right lower quadrant and left lower quadrant. 05:09 Back: Negative for acute changes. 05:09 : Negative for urinary symptoms. 05:09 MS/extremity: Negative for acute changes. 05:09 Skin: Negative for rash. 05:09 Neuro: Negative for altered mental status. Exam: 05:09 Head/Face: Normocephalic, atraumatic. Eyes: Pupils equal round and reactive to light, pkl extra-ocular motions intact. Lids and lashes normal. Conjunctiva and sclera are non-icteric and not injected. Cornea within normal limits. Periorbital areas with no swelling, redness, or edema. ENT: Nares patent. No nasal discharge, no septal abnormalities noted. Tympanic membranes are normal and external auditory canals are clear. Oropharynx with no redness, swelling, or masses, exudates, or evidence of obstruction, uvula midline. Mucous membranes moist. Neck: Trachea midline, no thyromegaly or masses palpated, and no cervical lymphadenopathy. Supple, full range of motion without nuchal rigidity, or vertebral point tenderness. No Meningismus. Chest/axilla: Normal chest wall appearance and motion. Nontender with no deformity. No lesions are appreciated. Cardiovascular: Regular rate and rhythm with a normal S1 and S2. No gallops, murmurs, or rubs. Normal PMI, no JVD. No pulse deficits. Respiratory: Lungs have equal breath sounds bilaterally, clear to auscultation and percussion. No rales, rhonchi or wheezes noted. No increased work of breathing, no retractions or nasal flaring. 05:09 Abdomen/GI: Bowel sounds: normal, Palpation: soft, mild abdominal tenderness, in all quadrants. 05:09 Back: Exam negative for acute changes. 05:09 : Exam negative for acute changes. 05:09 Musculoskeletal/extremity: Exam is negative for acute changes. 05:09 Skin: Exam negative for rash. 05:09 Neuro: Orientation: is normal, Mentation: is normal, Cranial nerves: grossly normal, Motor: is normal. Vital Signs: 04:20 BP 164 / 57; Pulse 94; Resp 20; Temp 97.4(O); Pulse Ox 97% on R/A; Weight 108.86 kg jb4 (R); Height 6 ft. 3 in. (190.50 cm); Pain 5/10; 05:35 Pulse Ox 92% on R/A; jb4 05:45 BP 128 / 60; Pulse 98; Resp 16; Pulse Ox 96% on 2 lpm NC; jb4 06:46 BP 133 / 63; Pulse 92; Resp 19; Pulse Ox 97% on R/A; oe 07:05 BP 116 / 60; Pulse 92; Resp 20; Temp 102.1; Pulse Ox 97% on 2 lpm NC; Pain 3/10; em 09:08 BP 114 / 53; Pulse 84; Resp 14; Temp 99.2(O); Pulse Ox 98% on 2 lpm NC; Pain 3/10; em 04:20 Body Mass Index 30.00 (108.86 kg, 190.50 cm) jb4 05:35 Desat after demerol administration, placed on 2L NC per protocol jb4 MDM: 04:35 Patient medically screened. pkl 08:11 Data reviewed: vital signs, nurses notes, lab test result(s), EKG, radiologic studies, [facility] CT scan, plain films. 12/30 05:07 Order name: Basic Metabolic Panel; Complete Time: 05:53 pkl 12/30 05:07 Order name: CBC with Diff; Complete Time: 06:19 pkl 12/30 05:07 Order name: Creatinine for Radiology; Complete Time: 05:46 pkl 12/30 05:07 Order name: Hepatic Function; Complete Time: 05:53 pkl 12/30 05:07 Order name: Lipase; Complete Time: 05:53 pkl 12/30 05:39 Order name: Manual Differential; Complete Time: 06:19 EDMS 12/30 05:07 Order name: XRAY CXR (1 view); Complete Time: 08:18 pkl 12/30 05:27 Order name: CT Abd/Pelvis - W/Contrast; Complete Time: 08:18 pkl 12/30 07:45 Order name: Blood Culture Adult (2) [facility] 12/30 07:45 Order name: Procalcitonin [facility] 12/30 07:45 Order name: Lactate [facility] 12/30 05:07 Order name: IV Saline Lock; Complete Time: 05:37 pkl 12/30 05:07 Order name: Labs collected and sent; Complete Time: 05:37 pkl 04 05:07 Order name: EKG; Complete Time: 05:08 pkl 12/30 09:09 Order name: Diet Ada 1800 Shane; Complete Time: 09:09 kj1 Administered Medications: 05:28 Drug: Zofran 4 mg Route: IVP; Site: right forearm; jb4 05:53 Follow up: Response: No adverse reaction; Nausea is decreased jb4 05:32 Drug: Demerol 50 mg Route: IVP; Site: right forearm; jb4 05:40 Follow up: Response: No adverse reaction; Pain is decreased jb4 05:36 Drug: NS 0.9% 1000 ml Route: IV; Rate: 125 ml/hr; Site: right forearm; jb4 10:46 Follow up: IV Status: Infusion continued upon admission; IV Intake: 600ml em 07:18 Drug: Tylenol 1000 mg Route: PO; em 09:07 Follow up: Response: No adverse reaction; Temperature is decreased em 08:08 Drug: NS 0.9% 1000 ml Route: IV; Rate: 1 bolus; Site: right forearm; em 09:22 Follow up: IV Status: Completed infusion; IV Intake: 1000ml em 08:15 Drug: Zosyn 3.375 grams Route: IVPB; Infused Over: 60 mins; Site: right forearm; em 09:21 Follow up: Response: No adverse reaction; IV Status: Completed infusion; IV Intake: em 100ml 09:21 Drug: levofloxacin 500 mg Volume: 100 ml; Route: IVPB; Infused Over: 60 mins; Site: em right forearm; 10:34 Follow up: IV Status: Completed infusion; IV Intake: 100ml em Point of Care Testing: Blood Glucose: 05:40 Blood Glucose: 165 mg/dL; oe Ranges: Critical Glucose Levels:Adult <50 mg/dl or >400 mg/dl <40 mg/dl or >180 mg/dl Disposition: 12/30/18 08:15 Hospitalization ordered by Claribel Villatoro for Inpatient Admission. Preliminary diagnosis are Fever, unspecified, Pneumonia due to other specified bacteria, Type 2 diabetes mellitus, Elevated white blood cell count, Abdominal tenderness. - Bed requested for Telemetry/MedSurg (Inpatient). - Status is Inpatient Admission. em - Condition is Fair. - Problem is new. - Symptoms have improved. UTI on Admission? No Signatures: Dispatcher [employer] EDMS Pete Kenyon MD MD cha Lam, Pin, MD MD pkl Alireza Gooden, PRINCIPAL HARDWARE ARCHITECT PRINCIPAL HARDWARE ARCHITECT em Gee Duval, RN RN jb4 Yaa Anderson RN RN df Botello, Elizabeth eb Corrections: (The following items were deleted from the chart) 08:16 08:15 Hospitalization Ordered by Claribel Villatoro MD for Inpatient Admission. Preliminary zachery diagnosis is Fever, unspecified; Pneumonia due to other specified bacteria; Type 2 diabetes mellitus; Elevated white blood cell count. Bed requested for Telemetry/MedSurg (Inpatient). Status is Inpatient Admission. Condition is Fair. Problem is new. Symptoms have improved. UTI on Admission? No. zachery 08:43 08:16 12/30/2018 08:15 Hospitalization Ordered by Claribel Villatoro MD for Inpatient eb Admission. Preliminary diagnosis is Fever, unspecified; Pneumonia due to other specified bacteria; Type 2 diabetes mellitus; Elevated white blood cell count; Abdominal tenderness. Bed requested for Telemetry/MedSurg (Inpatient). Status is Inpatient Admission. Condition is Fair. Problem is new. Symptoms have improved. UTI on Admission? No. zachery 09:58 08:43 12/30/2018 08:15 Hospitalization Ordered by Claribel Villatoro MD for Inpatient df Admission. Preliminary diagnosis is Fever, unspecified; Pneumonia due to other specified bacteria; Type 2 diabetes mellitus; Elevated white blood cell count; Abdominal tenderness. Bed requested for Telemetry/MedSurg (Inpatient). Status is Inpatient Admission. Condition is Fair. Problem is new. Symptoms have improved. UTI on Admission? No. eb 10:45 09:58 12/30/2018 08:15 Hospitalization Ordered by Claribel Villatoro MD for Inpatient em Admission. Preliminary diagnosis is Fever, unspecified; Pneumonia due to other specified bacteria; Type 2 diabetes mellitus; Elevated white blood cell count; Abdominal tenderness. Bed requested for Telemetry/MedSurg (Inpatient). Status is Inpatient Admission. Condition is Fair. Problem is new. Symptoms have improved. UTI on Admission? No. df
[2018-12-30] MEDS ORDERED: ALBUTEROL 2.5 MG/3 ML NEB SOL NEB PRN (10:51)
[2018-12-30] MEDS ORDERED: ONDANSETRON 4 MG/2 ML VIAL IV PRN (10:51)
[2018-12-30 11:10] VITALS: BMI 31.3
[2018-12-30] MEDS: INSULIN -REGULAR HUMAN 50 UNIT/0.5 ML ML SQ SCH ×3 (12:04→21:00)
[2018-12-30] MEDS: NA CHLORIDE 0.9% 1,000 ML IV SCH ×2 (12:04→21:30)
[2018-12-30 14:25] LABS: Urine Appearance CLEAR; Urine Bilirubin NEGATIVE (NEG); Urine Blood NEGATIVE (NEG); Urine Color YELLOW; Urine Glucose 1+ (NEG); Urine Protein NEGATIVE (NEG)
[2018-12-30 14:55] LABS: Urine Bacteria NONE SEEN /HPF (NONE SEEN); Urine Culture Reflex Order NOT NEEDED; Urine RBC <5 /HPF (NONE SEEN)
[2018-12-30] MEDS: ACETAMINOPHEN 500 MG TAB PO PRN (15:47)
[2018-12-30] MEDS: PANTOPRAZOLE 40MG TABLET PO SCH (16:39)
[2018-12-30] MEDS: PIPER/TAZO/NS 3.375gm 3.375 GM/100 ML BAG IVPB SCH (16:40)
[2018-12-30] MEDS: ENOXAPARIN 40 MG/0.4 ML SQ SCH (16:40)
--- NOTE | 2018-12-30 20:59 | RAD REPORT ---
EXAM DESCRIPTION: US - Urinary Bladder - 12/30/2018 8:15 pm CLINICAL HISTORY: Abnormal CT COMPARISON: December 30 CT study FINDINGS: Urinary bladder volume is 410 mL. Bilateral ureteral jets seen. Lobulated mass at the trig one is identified. This is favored to be prostate in origin and could be hypertrophy or prostate mass . Direct visualization will likely be needed for final for definitive diagnosis.
[2018-12-30] MEDS: METOPROLOL TAR 25 MG TAB PO SCH (21:28)
[2018-12-30] MEDS: DOCUSATE NA 100 MG CAP PO SCH (21:29)
[2018-12-30] MEDS: ATORVASTATIN 80 MG TAB PO SCH (21:29)
[2018-12-30] MEDS: TICAGRELOR 90 MG TABLET PO SCH (21:30)
[2018-12-31] MEDS: PIPER/TAZO/NS 3.375gm 3.375 GM/100 ML BAG IVPB SCH ×3 (00:46→16:53)
--- NOTE | 2018-12-31 02:31 | HP ---
Date of Admission: 12/30/2018 Primary Care Physician: Out of town in [place]. Chief Complaint: Shortness of breath, fever. Code Status: Full. History Of Present Illness: The patient is a 63-year-old male with past medical history of hypertens ion; diabetes; hyperlipidemia; IA, status post stent, who was in his usual state of health until the day of admission when the patient states he woke up and felt that he had severe acid reflux symptoms, took some Tums with water, did not feel better. Did have some subjective fever and chills. No sign ificant cough other than a dry cough. The patient denies any ill contacts. The patient's symptoms a re constant, moderate, progressively worsening, came into the ER for further evaluation. He denies a ny chest pain, nausea, vomiting, abdominal pain, diarrhea, or constipation. In the ER, his vital sig ns were stable. His temperature was 99.2. His workup revealed a white count of 18,000. Procalciton in was elevated at 0.99. Lactate was normal. The patient's chest x-ray showed right lower lung fiel d pneumonia. The patient was then referred for admission. When seen in the ER, he was awake, alert, and oriented x3, in some mild distress. Past Medical History: Hypertension; hyperlipidemia; diabetes mellitus type 2, [id number]; coronary artery disease; and history of IA, status post stent. Past Surgical History: Cardiac stent placement, cholecystectomy. Allergies: CODEINE CAUSES ITCHING, HIVES, AND RASH. Medications: List reviewed. Social History: The patient quit smoking a year ago during a heart attack. No illicit drug use or a lcohol use. The patient is independent in his activities of daily living. Family History: Father had diabetes. Both sisters also have diabetes. Review of Systems: An 11-point system reviewed, negative except as per HPI. Physical Examination: Vital Signs: Temperature 98.6, heart rate 73, blood pressure 102/55, respirations 20, O2 97% on 2 L via nasal cannula. General: Awake, alert, oriented x3, in some mild distress. HEENT: Normocephalic, atraumatic. PERRLA, EOMI. Moist mucous membranes. Oropharynx is clear. Con junctivae anicteric. Neck: Supple. No JVD. Trachea midline. CV: S1, S2. Regular rate and rhythm. Peripheral pulses present bilaterally. No murmurs. Respiratory: Diminished breath sounds on the right. No wheezing or stridor. No use of accessory mu scles. Gastrointestinal: Abdomen is soft, nontender, nondistended. Positive bowel sounds. No guarding or rigidity. Extremities: No clubbing, cyanosis, or edema. No calf tenderness. Neuro: Cranial nerves 2 through 12 intact grossly. No focal neurological deficit. Speech is normal . Skin: No rashes. Normal skin turgor. Laboratory Data: Sodium 138, potassium 4.1, chloride 106, CO2 25, BUN 17, creatinine 1.27, glucose 1 59, lactate 1.8, calcium 9.5, Procalcitonin 0.99. WBC 18.8, H and H 15.3 and 44.9, platelets 304, ne utrophils 86%. UA is negative. Imaging Studies: Chest x-ray shows moderate size right lower lung field pneumonia. Abdomen and pelv is CT shows right lung base pneumonia, large stool volume filling but not dilating the colon. No acu te colon process identified. Lobulated prostate projecting into bladder base versus bladder base mas s, correlating with PLANT CULTURE MANAGER values may be helpful. Followup outpatient bladder sonography or cystoscopy may be needed for further assessment. Soft tissue thickening of the left inguinal canal origin with sigmoid colon abutting the origin of the inguinal canal. This may be old hernia repair change. Adhe lis of the bowel to the surgical site not excluded. Correlation is needed with any left lower quadr ant or inguinal canal pain symptoms. Assessment: A 63-year-old male with: 1.Right lower lobe pneumonia, possible aspiration due to acid reflux. We will start on IV antibioti cs. We will obtain blood cultures and sputum cultures. Continue on IV fluids. 2.Essential hypertension. The patient currently hypotensive. We will hold blood pressure medicatio ns for now. 3.Diabetes mellitus type 2, non-insulin requiring. We will start on sliding scale insulin and monit or Accu-Cheks. 4.Hyperlipidemia. Continue statin. 5.Prostate enlargement. The patient will likely need urology followup and possible cystoscopy or bl adder sonography for further assessment to rule out bladder base mass on CT. 6.Gastroesophageal reflux disease without esophagitis. We will start on proton pump inhibitor. Gas trointestinal/deep venous thrombosis prophylaxis with proton pump inhibitor and Lovenox. Plan: Admit the patient to Med-Surg, place as inpatient with length of stay greater than 2 midnights . SRINIVAS Voice ID: [id number]
[2018-12-31] MEDS: ACETAMINOPHEN 500 MG TAB PO PRN (04:24)
[2018-12-31 05:09] LABS: Absolute Lymphocytes (CBC) 3.3 K/uL (0.7-4.9); Absolute Monocytes 1.1 K/uL (0.1-1.3); Absolute Neutrophil 12.7 K/uL (1.8-8.0); Basophils % 0.2 % (0-1.3); Eosinophils % 2.6 % (0-4.4); Hematocrit 36.6 % (39.6-49.0); Lymphocytes % 18.9 % (15.3-44.8); MPV 8.3 fL (7.6-11.3); Monocytes % 6.3 % (3.3-12.3); RBC Red Blood Cell Count 3.97 M/uL (4.33-5.43)
[2018-12-31 05:31] LABS: Magnesium 1.7 mg/dL (1.8-2.4); Potassium 3.8 mmol/L (3.5-5.1); Protein, Total 5.9 g/dL (6.4-8.2)
[2018-12-31] MEDS: PANTOPRAZOLE 40MG TABLET PO SCH (05:37)
[2018-12-31] MEDS: NA CHLORIDE 0.9% 1,000 ML IV SCH ×2 (05:38→16:51)
[2018-12-31] MEDS ORDERED: MAGNESIUM SULFATE 1 gm IVPB 1 GM/100 ML BAG IV ONE (05:47)
[2018-12-31] MEDS ORDERED: POTASSIUM CL SA 10 MEQ TAB PO ONE (05:48)
[2018-12-31] MEDS: INSULIN -REGULAR HUMAN 50 UNIT/0.5 ML ML SQ SCH ×4 (07:30→20:44)
[2018-12-31] MEDS: POLYETHYL GLY 3350 17 GM/DOSE PO SCH (08:59)
[2018-12-31] MEDS: ASPIRIN EC 81 MG TAB PO SCH (09:00)
[2018-12-31] MEDS ORDERED: AZILSARTAN MEDOXOMIL 40 MG PO SCH (09:00)
[2018-12-31] MEDS: DOCUSATE NA 100 MG CAP PO SCH ×2 (09:00→20:42)
[2018-12-31] MEDS: TICAGRELOR 90 MG TABLET PO SCH ×2 (09:00→20:42)
[2018-12-31] MEDS: METOPROLOL TAR 25 MG TAB PO SCH ×2 (09:00→20:43)
--- NOTE | 2018-12-31 15:29 | PN ---
Date of Progress Note: 12/31/2018 The patient seen and examined, chart reviewed, and case discussed with RN. The patient's treatment plan explained, all questions answered. He reports some cough. No significant shortness of breath. Medications: List reviewed. Physical Examination: Vital Signs: Temperature 98.1, heart rate 67, blood pressure 149/70, respirations 16, O2 of 96% on 2 L via nasal cannula. General: Awake, alert, oriented x3. Elderly male, ill-appearing, obese, BMI of 31. CV: S1, S2. Regular rate and rhythm. Peripheral pulses present. Respiratory: Diminished breath sounds. No wheezing or stridor. Gastrointestinal: Abdomen is soft, nontender, nondistended. Positive bowel sounds. Extremities: No clubbing, cyanosis, or edema. Neurologic: Nonfocal. Laboratory Data: Sodium 142, potassium 3.8, chloride 110, CO2 of 25, BUN 14, creatinine 1.11, glucose 150, calcium 8.3, magnesium 1.7, albumin 3, and PSA is 4.54. WBC is 17.6, H and H 12.1/36.6, platelets 231, neutrophils 72%. Blood cultures, no growth to date. Sputum cultures, pending. Assessment And Plan: A 63-year-old male with: 1. Right lower lobe pneumonia. Continue antibiotics. Follow up on culture results. 2. Essential hypertension. Blood pressure now has improved. Resume home medications as appropriate. 3. bladder mass, may be due to benign prostatic hyperplasia or bladder malignancy. We will consult Urology for a possible cystoscopy. PSA level is borderline at 4.54. We will add Flomax. 4. Hyperlipidemia. We will continue statin. 5. Benign prostatic hyperplasia, on Flomax. 6. Gastroesophageal reflux disease without esophagitis. Started on PPI. GI and DVT prophylaxis with PPI and Lovenox. Plan: Continue antibiotics. Follow up on cultures, pending Urology evaluation , likely discharge in the next 48-72 hours depending on clinical response. Wean off oxygen as tolerated. /JO Voice ID: [id number] Report ID: [id number] JEWEL
[2018-12-31] MEDS: ENOXAPARIN 40 MG/0.4 ML SQ SCH (16:52)
[2018-12-31] MEDS: ATORVASTATIN 80 MG TAB PO SCH (20:42)
[2018-12-31] MEDS ORDERED: TAMSULOSIN 0.4 MG SR CAP PO SCH (21:00)
[2019-01-01] MEDS: PIPER/TAZO/NS 3.375gm 3.375 GM/100 ML BAG IVPB SCH ×2 (00:17→09:21)
[2019-01-01 01:19] VITALS: O2SAT 95
[2019-01-01] MEDS: NA CHLORIDE 0.9% 1,000 ML IV SCH (05:23)
[2019-01-01] MEDS: PANTOPRAZOLE 40MG TABLET PO SCH (05:23)
[2019-01-01 06:21] LABS: Absolute Lymphocytes (CBC) 2.8 K/uL (0.7-4.9); Absolute Neutrophil 7.4 K/uL (1.8-8.0); Basophils % 0.2 % (0-1.3); Eosinophils % 5.3 % (0-4.4); MPV 8.6 fL (7.6-11.3); Monocytes % 8.1 % (3.3-12.3); RBC Red Blood Cell Count 4.11 M/uL (4.33-5.43)
[2019-01-01 06:45] LABS: Albumin 3.2 g/dL (3.4-5.0); Bilirubin Total 0.8 mg/dL (0.2-1.0); Magnesium 2.1 mg/dL (1.8-2.4); Potassium 4.6 mmol/L (3.5-5.1); Protein, Total 6.7 g/dL (6.4-8.2)
[2019-01-01] MEDS: INSULIN -REGULAR HUMAN 50 UNIT/0.5 ML ML SQ SCH (07:30)
[2019-01-01] MEDS: POLYETHYL GLY 3350 17 GM/DOSE PO SCH (09:00)
[2019-01-01] MEDS ORDERED: AZILSARTAN MEDOXOMIL 40 MG PO SCH ×2 (09:00→17:00)
[2019-01-01] MEDS: METOPROLOL TAR 25 MG TAB PO SCH (09:20)
[2019-01-01] MEDS: ASPIRIN EC 81 MG TAB PO SCH (09:21)
[2019-01-01] MEDS: DOCUSATE NA 100 MG CAP PO SCH (09:21)
[2019-01-01] MEDS: TICAGRELOR 90 MG TABLET PO SCH (09:25)
[2019-01-01 12:01] VITALS: BP 185/84; TEMP 97.6
--- NOTE | 2019-01-02 03:49 | DS ---
Date of Discharge: 01/01/2019 Consultants: Dr. Chou with Urology. Admitting Diagnoses: 1.Right lower lobe pneumonia. 2.Essential hypertension. 3.Diabetes mellitus, type 2, [id number]. 4.Hyperlipidemia. 5.Prostate enlargement. Discharge Diagnoses: 1.Right lower lobe pneumonia, improved. 2.Bladder mass, likely prostate hyperplasia. PSA is 4.54. 3.Essential hypertension, stable. 4.Hyperlipidemia, statin. 5.Benign prostatic hyperplasia, started on Flomax. 6.Gastroesophageal reflux disease without esophagitis, started on trial of PPI. 7.Obesity, BMI 31.3. Hospital Course: The patient is a 63-year-old male, comes in with shortness of breath and fever. Th e patient also reported some reflux symptoms. The patient was found to have right lower lung pneumon ia and had a white count of 18,000 with a borderline procalcitonin. The patient was started on IV an tibiotics. Cultures were obtained, which remained negative throughout the course of the hospital sta y. The patient improved with treatment his white blood cell count trended down to 11.8. He did, how ever, have some enlargement of his prostate and bladder ultrasound showed a lobulated mass of the tri gone favored to be prostate in origin, could be hypertrophy or prostate mass. His PSA was 4.54. Dr. Chou with Urology was consulted for possible cystoscopy and evaluation. He recommended outpatient followup. The patient was not having any hematuria. The patient was started on Flomax, which decrea sed his urinary frequency and nocturia. The patient was also started on trial of PPI due to the refl ux, which may have caused his pneumonia, likely pneumonitis or aspiration pneumonia. Overall, the gibran jim did well. His condition improved. He was then cleared for discharge. He was afebrile, ambula ting well. He was then sent home in a stable condition. Activity: As tolerated. Medications: As per medication reconciliation list. Followup: Follow up with primary care physician in 2-3 days. Follow up with urologist, Dr. Chou, kiki flores 1 week. Establish care with GI in the next 2-4 weeks for EGD and further workup of gastroesophagea l reflux disease. The patient was educated on how to prevent reflux. The patient was instructed to hold metformin for another 48 hours due to IV contrast given on admission for CT scan. Diet: Diabetic. Physical Examination: General: Awake, alert, oriented, no acute distress. CV: S1, S2. No murmurs. Respiratory: Moving air well bilaterally. No wheezing. Gastrointestinal: Abdomen is soft, nontend er, nondistended. Positive bowel sounds. Extremities: No clubbing, cyanosis, edema. Neurologic: Nonfocal. SA/MODL Voice ID: [id number] Report ID: [id number]
--- NOTE | 2019-01-02 11:29 | EKG ---
Test Date: 2018-12-30 Test Time: 05:19:10 Egg Producer: ANDRIY MEASUREMENT RESULTS: Intervals: Rate: 91 ID: [id number] QRSD: 80 QT: 320 QTc: 393 [place]: P: 62 ID: [id number] QRS: 47 T: 70 INTERPRETIVE STATEMENTS: Normal sinus rhythm Normal ECG Compared to ECG 05/12/2018 14:43:53 No significant changes Electronically Signed On 12-30-18 16:43:31 CDT by Gael Dela Cruz
== END 2019-01-01 12:02 | disposition home or self-care (01) ==
LOC: ER 04:02 → ERHOLD 09:37 → INTOOBSV 09:37 → 2ND 10:31
PROVIDERS: ADMIT Family Medicine; ATTEND Family Medicine
DX: J18.1 Lobar pneumonia, unspecified organism (principal); I10 Essential (primary) hypertension; E11.9 Type 2 diabetes mellitus without complications; E78.2 Mixed hyperlipidemia; N40.0 Benign prostatic hyperplasia without lower urinary tract symptoms; N32.9 Bladder disorder, unspecified; K21.9 Gastro-esophageal reflux disease without esophagitis; E66.9 Obesity, unspecified; Z68.31 Body mass index [BMI] 31.0-31.9, adult; Z95.5 Presence of coronary angioplasty implant and graft; Z88.6 Allergy status to analgesic agent
CPT/HCPCS: 36415; 71045; 74177; 76857; 80048; 80053; 80076; 81001; 82962; 83605; 83690; 83735; 84145; 84153; 85025; 87040; 87070; 87205; 93005; 96361; 96365; 96367; 96375; 99285; G0378; J1650; J2175; J2405; J2543; J3475; J7030; Q9967

== ENCOUNTER 2019-02-05 15:40 | Emergency (ER) | payer BC, OTHER ==
--- OUTSIDE RECORDS SUMMARY | 2019-02-05 16:38 | XMS REPORT | Clinical Summary ---
:1955 Author Organization [facility] Address [address] [place] [address] Care Team Providers Name Role Phone Markie [...] INFLUENZA VACCINE 04/26/2019 Implants Implanted Type Area Potable Water Treatment Operator Device Shelf Model / Identifier Expiration Serial / Date Lot Mesh Hrnia Rpr 2x12in Flat Shet Ppe Soft-Tissue Ventrl - [id number] Surgical Left: [employer] 04/22/2022 [id number] / Implanted: Qty: 1 on 10/31/2017 by Elisha Murillo MD Mesh or Groin / Tissue Barrier [employer] Plug Hrnia Rpr Perfix Lg 1.6x1.9in - [id number] Surgical N/A: N/A [employer] 07/23/2022 [id number] / Implanted: Qty: 1 on 10/31/2017 by Elisha Murillo MD Mesh or / Tissue [id number] Barrier Products Results Not on fileafter 02/04/2018 Insurance Payer Benefit Plan / Group Subscriber ID Type Phone Address BCBS BCBS CHOICE PPO/FEDERAL EMPL PPO xxxxxxxxxxxx PPO (Home) [place] [address] Advance Directives Patient has advance care planning documents on file. For more information, please contact:[id number] [place] [address]
--- NOTE | 2019-02-05 18:38 | ER ---
Nurse's Notes [facility] Name: Morris Bowman Age: 63 yrs Sex: Male : 1955 Arrival Date: 02/05/2019 Time: 15:40 Bed Waiting Private MD: Markie Wong Diagnosis: Presentation: 02/05 15:52 Presenting complaint: Patient states: Pt reports that around 1430 today for ss approximately 30 minutes he felt hot, dizzy and nauseated. Pt reports he feels better now, but is concerned because at home his blood pressure was elevated at 159/103. Transition of care: patient was not received from another setting of care. Onset of symptoms was February 05, 2019. Risk Assessment: Do you want to hurt yourself or someone else? Patient reports no desire to harm self or others. Initial Sepsis Screen: Does the patient meet any 2 criteria? No. Patient's initial sepsis screen is negative. Does the patient have a suspected source of infection? No. Patient's initial sepsis screen is negative. Care prior to arrival: None. 15:52 Method Of Arrival: Ambulatory 15:52 Acuity: ALEKSANDRA 3 ss Historical: - Allergies: 15:55 Codeine; ss - PMHx: 15:55 allergies; constipation; Hyperlipidemia; Diabetes - NIDDM; Hypertension; ss - PSHx: 15:55 Heart stents; Hernia repair; Cholecystectomy; Appendectomy; ss - Immunization history:: Adult Immunizations up to date. - Social history:: Smoking status: Patient/guardian denies using tobacco. - Ebola Screening: : Patient denies exposure to infectious person Patient denies travel to an Ebola-affected area in the 21 days before illness onset. Vital Signs: 15:55 BP 132 / 80; Pulse 74; Resp 20; Temp 97.6(TE); Pulse Ox 98% on R/A; Weight 108.86 kg; ss Height 6 ft. 3 in. (190.50 cm); Pain 0/10; 15:55 Body Mass Index 30.00 (108.86 kg, 190.50 cm) ED Course: 15:40 Patient arrived in ED. mr 15:41 Markie Wong is Private Physician. mr 15:54 Triage completed. ss 15:55 Arm band placed on right wrist. ss 15:55 EKG done, by fire technician. reviewed by Saul Arias MD. sm3 18:24 Patient's name was called from [facility]. No response. sv 18:37 Patient's name was called from [facility]. No response. Unable to locate patient. Will bb disposition as left without being seen by a provider. Administered Medications: No medications were administered Outcome: 18:38 Patient left the ED. bb Signatures: Yane Ceron RN RN sv Rivera, Mary mr Ballard, Brenda, RN RN bb Smirch, Shelby, RN RN ss Montes, Shakira 3
--- NOTE | 2019-02-05 19:10 | EKG ---
Test Date: 2019-02-05 Test Time: 15:55:29 Executive Director Of Nursing: LUPILLO MEASUREMENT RESULTS: Intervals: Rate: 76 HI: 184 QRSD: 84 QT: 354 QTc: 398 [place]: P: 62 HI: 184 QRS: -9 T: 70 INTERPRETIVE STATEMENTS: Normal sinus rhythm Normal ECG Compared to ECG 12/30/2018 05:19:10 No significant changes Electronically Signed On 02-05-19 19:09:41 CDT by Gael Dela Cruz
[2019-02-05 22:45] VITALS: BP 132/80; TEMP 97.6; O2SAT 98
== END 2019-02-05 18:38 | disposition left against medical advice (07) ==
LOC: ER 15:40
DX: R42 Dizziness and giddiness (principal); I10 Essential (primary) hypertension; E78.5 Hyperlipidemia, unspecified; E11.9 Type 2 diabetes mellitus without complications; Z53.21 Procedure and treatment not carried out due to patient leaving prior to being seen by health care provider
CPT/HCPCS: 93005; 99282

== ENCOUNTER 2023-05-20 07:00 | Day surgery (SDC) | payer BC, OTHER ==
--- NOTE | 2023-05-17 15:55 | RAD REPORT ---
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 COMPARISON: Chest Single View dated 12/30/2018; Chest Single View dated 05/12/2018; Chest Single View d ated 12/29/2017 TECHNIQUE: PA and lateral views of the chest were obtained. FINDINGS: The lungs are hyperexpanded compatible with COPD. The heart is upper limit of normal in si ze. No fracture or aggressive bony process. IMPRESSION: COPD without acute process identified. The USPSTF recommends annual screening for lung cancer with low-dose CT (LDCT) in adults aged 50 to 8 0 years who have a 20 pack-year smoking history and currently smoke or have quit within the past 15 y ears.
[2023-05-17 16:19] LABS: Absolute Lymphocytes (CBC) 1.8 K/uL (0.7-4.9); Hematocrit 45.3 % (39.6-49.0); Lymphocytes % 13.3 % (15.3-44.8); MCV 88.2 fL (80-100); MPV 7.7 fL (7.6-11.3); Platelets 403 thou/uL (152-406); RBC Red Blood Cell Count 5.14 M/uL (4.33-5.43)
[2023-05-17 16:27] LABS: Protime INR 0.99
[2023-05-17 16:32] LABS: Potassium 4.3 mEq/L (3.5-5.1)
--- NOTE | 2023-05-18 12:58 | EKG ---
Test Date: 2023-05-17 Test Time: 15:19:49 Saute Chef: GLADYS MEASUREMENT RESULTS: Intervals: Rate: 59 [place]: QRSD: 84 QT: 370 QTc: 366 [place]: P: WA: QRS: 4 T: 78 INTERPRETIVE STATEMENTS: Atrial fibrillation with slow ventricular response ST elevation of the inferior lead consider acute inferior injury. Abnormal ECG Compared to ECG 02/05/2019 15:55:29 Sinus rhythm no longer present Electronically Signed On 05-18-23 12:57:35 CDT by Sanjeev Luna
--- NOTE | 2023-05-18 12:58 | EKG ---
Test Date: 2023-05-17 Test Time: 15:20:31 Early Childhood Coordinator: GLADYS MEASUREMENT RESULTS: Intervals: Rate: 63 NM: QRSD: 86 QT: 360 QTc: 368 [place]: P: NM: QRS: 18 T: 79 INTERPRETIVE STATEMENTS: Atrial fibrillation Abnormal ECG Inferior ST elevation, possible acute injury. Compared to ECG 05/17/2023 15:19:49 No significant changes Electronically Signed On 05-18-23 12:56:53 CDT by Sanjeev Luna
[2023-05-20] MEDS ORDERED: LIDOCAINE 1% 20 ML MDV ONE (07:16)
[2023-05-20] MEDS ORDERED: NA CHLORIDE 0.9% 500 ML ONE (07:16)
[2023-05-20] MEDS ORDERED: VERAPAMIL HCL 10 MG/4 ML VIAL IV ONE (07:16)
[2023-05-20] MEDS ORDERED: HEPARIN 5000 UNIT/ML 1 ML VIAL ONE (07:16)
[2023-05-20] MEDS ORDERED: HEPA 1000U/500MLS 2,000 UNIT/1,000 ML BAG IV ONE (07:16)
[2023-05-20] MEDS ORDERED: FENTANYL CITR 100 MCG/2 ML ONE (07:16)
[2023-05-20] MEDS ORDERED: MIDAZOLAM HCL 2 MG/2 ML INJ ONE (07:16)
[2023-05-20] MEDS ORDERED: NITROGLYCERIN/D5W 25 MG/250 ML BTL IV ONE (07:17)
[2023-05-20] MEDS ORDERED: TICAGRELOR 90 MG TABLET PO ONE (07:17)
[2023-05-20] MEDS ORDERED: ATROPINE SULF 1 MG/10 ML SYR IV ONE (07:17)
[2023-05-20] MEDS ORDERED: CLOPIDOGREL 75 MG TABLET ONE (07:17)
[2023-05-20] MEDS ORDERED: NITROGLYCERIN 100 MCG/ML SYR (for cath lab use only) IV ONE (07:17)
[2023-05-20] MEDS ORDERED: HEPARIN 10,000 UNIT/10 ML VIAL IV ONE (07:17)
[2023-05-20] MEDS ORDERED: ASPIRIN 325 MG TAB ONE (07:17)
[2023-05-20] MEDS ORDERED: METOPROLOL TARTRATE 5 MG/5 ML INJ IV ONE (07:46)
[2023-05-20 08:31] VITALS: TEMP 97.1
--- NOTE | 2023-05-20 09:09 | OP ---
Date of Procedure: 05/20/2023 Surgeon: REUBEN TOBAR Procedures Performed: 1.Selective coronary angiogram. 2.Left heart catheterization. Indication: Abnormal stress test. Access: Right radial artery 6-Mongolian closed with TR band. Complications: None. Bleeding: Less than 20 mL. Anesthesia: Total sedation time was 25 minutes. Description Of Procedure: After risks, benefits, and alternatives were explained, patient agreed to proceed and signed informed consent. Patient was brought into cardiac catheterization laboratory, p repped and draped in usual sterile fashion. Then, I accessed right radial artery using pediatric stephanie ropuncture kit, placed 6-Mongolian Slender sheath. Took 5-Mongolian [place] 4.0 catheter into aortic root, e ngaged the left main and then took standard views. Then, engaged the RCA and took 7 views and then c atheter was pushed over the wire into the LV, measured the LVEDP and pullback, did not record any gra dient and then I removed the catheter and sheath and placed TR band with good hemostasis. Findings: 1.Left main is large and normal. 2.LAD: Large vessel with proximal segment luminal irregularities. The mid segment has multiple are as of 30% stenosis and diagonal branches are with luminal irregularities. 3.Left circumflex: Moderate size with 50% stenosis involving the OM1 branch. 4.RCA: Large and dominant. Proximal 30%, mid 30%, and then luminal irregularities. 5.LVEDP at 11 mmHg. Conclusion: [id number] nonobstructive coronary artery disease. Plan: Medical management. SR/MODL Voice ID: [id number] Report ID: [id number]
[2023-05-20 09:59] VITALS: BP 114/76; O2SAT 97
== END 2023-05-20 10:34 | disposition home or self-care (01) ==
LOC: CCL 07:00
PROVIDERS: ATTEND Internal Medicine
DX: I25.10 Atherosclerotic heart disease of native coronary artery without angina pectoris (principal); I48.91 Unspecified atrial fibrillation; I65.21 Occlusion and stenosis of right carotid artery; I70.223 Atherosclerosis of native arteries of extremities with rest pain, bilateral legs; I10 Essential (primary) hypertension; E11.9 Type 2 diabetes mellitus without complications; E78.2 Mixed hyperlipidemia; Z87.891 Personal history of nicotine dependence; Z79.82 Long term (current) use of aspirin; Z79.899 Other long term (current) drug therapy; Z88.5 Allergy status to narcotic agent
CPT/HCPCS: 93005 ×2; 85025; 80048; 36415; 85610; 82947; 85730; 71046; 93458; 76937; C1893; Q9966; J1644; J2001; J2250; J3010; J7040; J0461

== ENCOUNTER 2023-05-23 10:16 | Observation (INO) | payer BC, OTHER ==
--- OUTSIDE RECORDS SUMMARY | 2023-05-23 10:21 | XMS REPORT | Continuity of Care Document ---
:1955 Author Organization [facility] t Address [address] [facility] [place] [address] Care Team Providers Name Role Phone PCP, PATIENT DOES NOT HAVE A Primary Care Physician Unavaila COLTON Ram Attending Clinician Unavailable Akosua Attending Clinician Unavailable Colton Ramirez MD Attending Clinician Pob, [facility] Main Attending Clinician Unavailable Doctor Unassigned, [place] Attending Clinician Unavailable BETY ALONZO Attending Clinician Unavailable COLTON RAMIREZ Admitting Clinician Unavailable [place]ua Admitting Clinician Unavailable Colton Ramirez MD Admitting Clinician Payers Payer Name Policy Type Policy Number Effective Date Expiration Date S ource [facility] [id number] 2015 00:00:00 MEDICARE PART A [id number] 2018 \T\ B 00:00:00 [place] [id number] [place] (PP[place] 00:[place]:00 [place] [id number] 2018 [employer] 00:00:00 Problems This patient has no known problems. Allergies, Adverse Reactions, Alerts Allergy Allergy Status Severity Reaction(s) Onset Inactive Treating Comm ents Source Name Type Date Date Clinician CODEINE DRUG Active Unknown-Cmnt Uni vers INGREDI 06-24 ity of 00:00: [place] 00 Medical Branch Codeine Propensi Active Unknown - Univ ers ty to See comments 06-24 ity of adverse 00:00: [place] reaction Medical s Branch Codeine Propensi Active GI Bad Methodi ty to Intolerance 1- [facility] adverse 00:00: Hospita reaction 00 l s to drug Social History Social Habit Start Date Stop Date Quantity Comments Source History of tobacco Current smoker Un iversity of use [facility] Gender identity [facility] Sexual [facility] Exposure to 2022-07-09 2022-07-19 Not sure University SARS-CoV-2 (event) 00:00:00 11:27:00 [facility] Tobacco use and 2022-07-13 2022-07-13 Smokeless Universit y of exposure 00:00:00 00:00:00 tobacco non-user [facility] [place] [facility] History of Social 2018-08-10 2018-08-[address] function 00:00:00 00:00:00 Hospital Alcohol intake 2017-11-02 2017-11-02 Current [facility] 00:00:00 00:00:00 non-drinker of Hospital alcohol (finding) Sex Ass[birth year] At [birth year] [facility] 00:[facility]00 Hospital Smoking Status Start Date Stop Date Source Ex-smoker 2022-07-13 00:00:00 2022-07-13 00:00:00 Universi ty of [facility] Medications Ordered Filled Start Stop Current Ordering Indication Dosage Frequency Signature Comments Components Source Medication Medication Date Date Medication? Clinician (SIG) Name Name neomycin-po 2021-09- No PRN, Unive rs lymyxin-dex 07-21 Starting ity of amethasone 16:20: 16[place]47 [place] (MAXITROL[place] 00 :07/21/22 Medic al 3.5 at 1120, Branch mg/g-10,000 Until Tue unit/g-0.1 07/21/22 % at 1147, ophthalmic Routine, ointment Intra-op sodium 2021-09- No PRN, Univers chloride 07-21 Starting ity of (NS) 16:19: 16:47 on Tue [place] injection 00 :21 07/21/22 Medica l at 1119, Branch Until Tue07/21/22 at 1147, Routine, Intra-op dexamethaso 2021-09- No PRN, Unive rs ne 07-21 Starting ity of (DECADRON 16:19: 16:47 on Tue [place] PHOSPHATE) 00 :21 07/21/22 Medic al injection at 1119, Branch Until Tue07/21/22 at 1147, Routine, Intra-op ceFAZolin 2021-09- No PRN, Univers (ANCEF) 07-21 Starting ity of injection 16:19: 16:47 on Tue [place] 00 :21 07/21/22 Medical at 1119, Branch Until Tue07/21/22 at 1147, SHEILA, Intra-op carbachoL 2021-09- No PRN, Univers (MIOSTAT) 07-21 Starting ity o f 0.01 % 16:17: 16:47 on Tue intraocular 00 :21 07/21/22 Medi yinka injection at 1117, Branch Until Tue07/21/22 at 1147, Routine, Intra-op EPINEPHrine 2021-09- No PRN, Unive rs 1:1,000 (1 07-21 Starting ity of mg/mL) 16:05: 16:47 on Tue [place] (ADRENALIN) 00 :21 07/21/22 Medi yinka injection at 1105, Branch Until Tue07/21/22 at 1147, Routine, Intra-op chondroitin 2021-09- No PRN, Unive rs sulf-sod 07-21 Starting ity of hyaluronate 16:05: 16:47 on Tue Jose Alberto as (DUOVISC 00 :21 07/21/22 Medical VISCO at 1105, Branch ELASTIC) Until Tue intraocular 07/21/22 injection at 1147, Routine, Intra-op balanced 2021-09- No PRN, Univers salt irrig 07-21 Starting ity of soln comb1 16:05: 16:47 on Tuea s (BSS PLUS) 00 :21 07/21/22 Medic al ophthalmic at 1105, Branc h solution Until Tue 500 mL bag 07/21/22 at 1147, Routine, Intra-op water for 2021-09- No PRN, Univers irrigation 007-21 Starting ity of irrigation 16:01: 16:47 [place] solution 00 :07/21/22 Medical at 1101, Branch Until Tue07/21/22 at 1147, Routine, Intra-op Hyaluronida 2021-09- No PRN, Unive rs se, Human 07-21 Starting ity o f Recomb. 15:57: 16:47 on Tue [place] (HYLENEX) 00 :07/21/22 Medica l injection at 1057, Branch Until Tue07/21/22 at 1147, Routine, Intra-op eye block 2021-09- No PRN, Univers syringe 11 07-21 Starting ity of mL 15:57: 16:47 on Tue [place] 00 :07/21/22 Medical at 1057, Branch Until Tue07/21/22 at 1147, Intra-op cyclopent 2021-09- No .5mL 0.5 mL, Univ ers 1%-tropic 07-21 Left Eye, ity of 1%-phenyl 14:30: 14:31 ONCE, 1 [place] 2.5%-ketor 00 :00 dose, On Medic al 0.5% Tue Branch (MYDRIATIC 07/21/22 #5) at 0930, ophthalmic Routine, solution DSU Pre-op syringe 0.5 mL lactated 2021-09- No 1000mL at 42 Unive rs ringers IV 0- 10- mL/hr, ity of infusion 14:30: 14:36 1,000 mL, Jose Alberto as 1,000 mL 00 :00 IV Medical Infusion, Branch ONCE, 1 dose, On Tue07/21/22 at 0930, Routine, DSU Pre-op cyclopent 2021-09- No .5mL 0.5 mL, Univ ers 1%-tropic 07-21 Left Eye, ity of 1%-phenyl 14:30: 14:31 ONCE, 1 [place] 2.5%-ketor 00 :00 dose, On Medic al 0.5% Tue Branch (MYDRIATIC 07/21/22 #5) at 0930, ophthalmic Routine, solution DSU Pre-op syringe 0.5 mL lactated 2021-09 1000mL at 42 Unive rs ringers IV 0-26 10-26 mL/hr, ity of infusion 14:30: 14:36 1,000 mL, Jose Alberto as 1,000 mL 00 :00 IV Medical Infusion, Branch ONCE, 1 dose, On Tue07/21/22 at 0930, Routine, DSU Pre-op AZILSARTAN 2021-09 Yes Take by Univ ers MEDOXOMIL 0-26 mouth. ity of ORAL 11:51: [address] Branch atorvastati 2021-09 Yes Take by Uni vers n calcium 0-26 mouth. ity of (ATORVASTAT 11:51: [place] IN ORAL) [address] [place] [address] Branch ticagrelor 2021-[address] [facility] ers (BRILINTA 0-26 mouth. ity of ORAL) 11:51: [address] ASPIRIN, 2021-09 Yes 81mg Take 81 mg Uni vers BULK, MISC 0-26 by mouth ity o f 11:51: daily. [address] Branch sitagliptin 2021-09 Yes Take by Uni vers phos/metfor 0-26 mouth. ity of min HCl 11:51: [place] (JANUMET 41 Medical ORAL) Branch dulaglutide 2021-09 Yes inject Univ ers (TRULICITY 0-26 under the ity of [place]) 11:51: skin. [address] Branch olmesartan 2021-09 Yes 40mg Take 40 mg U nivers 40 mg 0-26 by mouth ity of tablet 11:51: in the [place] [address] morning. Medical Branch bempedoic 2021-09 Yes 1{tbl} Take 1 Univ ers acid-ezetim 0-26 tablet by ity of shira 11:51: mouth [place] (NEXLIZET) 41 daily. Medical 180-10 mg Branch Tab metoprolol 2021-09 Yes 25mg Take 25 mg U nivers tartrate 25 0-26 by mouth ity of mg tablet 11:51: in the [place] [address] morning Medical and 25 mg Branch in the evening. clopidogreL 2021-09 Yes 75mg Take 75 mg Univers 75 mg 0-26 by mouth ity of tablet 11:51: in the [place] [address] morning. Medical Branch semaglutide 2021-09 Yes 1mg inject 1 Un alexis (OZEMPIC) 1 0-26 mg under ity of mg/dose (4 11:51: the skin Jose Alberto as mg/3 mL) 41 weekly. On Medic al PnIj sundays Branch empaglifloz 2021-09 Yes 1{tbl} Take 1 Un alexis -linaglip-m 0-26 tablet by ity of etformin 11:51: mouth 2 [place] (TRIJARDY 41 (two) Medical XR) times Branch 12.5-2.5-1, daily. 000 mg TBph levocetiriz 2021-09 Yes 5mg Take 5 mg U nivers ine 5 mg 0-26 by mouth ity of tablet 11:51: every [place] [address] evening. Medical Branch azelastine- 2021-09 Yes 2{spray Use 2 Un alexis fluticasone 0-26 } Sprays in ity of 137-50 11:51: each [place] mcg/spray 41 nostril Medical nasal spray daily. Branch AZILSARTAN 2021-09 Yes Take by Univ ers MEDOXOMIL 0-26 mouth. ity of ORAL 11:51: [address] Branch atorvastati 2021-09 Yes Take by Uni vers n calcium 0-26 mouth. ity of (ATORVASTAT 11:51: [place] IN ORAL) Medical Branch ticagrelor 2021-09 Yes Take by Univ ers (BRILINTA 0-26 mouth. ity of ORAL) 11:51: [address] Branch ASPIRIN, 2021-09 Yes 81mg Take 81 mg Uni vers BULK, MISC 0-26 by mouth ity o f 11:51: daily. [place] [address] Medical Branch sitagliptin 2021-09 Yes Take by Uni vers phos/metfor 0-26 mouth. ity of min HCl 11:51: [place] (JANUMET 41 Medical ORAL) Branch dulaglutide 2021-09 Yes inject Univ ers (TRULICITY 0-26 under the ity of [place]) 11:51: skin. [place] [address] Medical Branch olmesartan 2021-09 Yes 40mg Take 40 mg U nivers 40 mg 0-26 by mouth ity of tablet 11:51: in the [place] [address] morning. Medical Branch bempedoic 2021-09 Yes 1{tbl} Take 1 Univ ers acid-ezetim 0-26 tablet by ity of shira 11:51: mouth [place] (NEXLIZET) 41 daily. Medical 180-10 mg Branch Tab metoprolol 2021-09 Yes 25mg Take 25 mg U nivers tartrate 25 0-26 by mouth ity of mg tablet 11:51: in the [place] 41 morning Medical and 25 mg Branch in the evening. clopidogreL 2021-09 Yes 75mg Take 75 mg Univers 75 mg 0-26 by mouth ity of tablet 11:51: in the [place] [address] morning. Medical Branch semaglutide 2021-09 Yes 1mg inject 1 Un alexis (OZEMPIC) 1 0-26 mg under ity of mg/dose (4 11:51: the skin Jose Alberto as mg/3 mL) 41 weekly. On Medic al PnIj sundays Branch empaglifloz 2021-09 Yes 1{tbl} Take 1 Un alexis -linaglip-m 0-26 tablet by ity of etformin 11:51: mouth 2 [place] (TRIJARDY 41 (two) Medical XR) times Branch 12.5-2.5-1, daily. 000 mg TBph levocetiriz 2021-09 Yes 5mg Take 5 mg U nivers ine 5 mg 0-26 by mouth ity of tablet 11:51: every [place] [address] evening. Medical Branch azelastine- 2021-09 Yes 2{spray Use 2 Un alexis fluticasone 0-26 } Sprays in ity of 137-50 11:51: each [place] mcg/spray 41 nostril Medical nasal spray daily. Branch AZILSARTAN 2021-[address] [facility] ers MEDOXOMIL 0-18 mouth. ity of ORAL 10:51: [place] [address] Medical Branch atorvastati 2021-09 Yes Take by Uni vers n calcium 0-18 mouth. ity of (ATORVASTAT 10:51: [place] IN ORAL) Medical Branch ticagrelor 2021-[address] [facility] ers (BRILINTA 0-18 mouth. ity of ORAL) 10:51: [place] [address] Medical Branch ASPIRIN, 2021-09 Yes 81mg Take 81 mg Uni vers BULK, MISC 0-18 by mouth ity o f 10:51: daily. [place] [address] Medical Branch sitagliptin 2021-09 Yes Take by Uni vers phos/metfor 0-18 mouth. ity of min HCl 10:51: [place] (JANUMET 20 Medical ORAL) Branch dulaglutide 2021-09 Yes inject Univ ers (TRULICITY 0-18 under the ity of [place]) 10:51: skin. [place] 20 Medical Branch olmesartan 2021-09 Yes 40mg Take 40 mg U nivers 40 mg 0-18 by mouth ity of tablet 10:51: in the [place] 20 morning. Medical Branch bempedoic 2021-09 Yes 1{tbl} Take 1 Univ ers acid-ezetim 0-18 tablet by ity of shira 10:51: mouth [place] (NEXLIZET) 20 daily. Medical 180-10 mg Branch Tab metoprolol 2021-09 Yes 25mg Take 25 mg U nivers tartrate 25 0-18 by mouth ity of mg tablet 10:51: in the [place] 20 morning Medical and 25 mg Branch in the evening. clopidogreL 2021-09 Yes 75mg Take 75 mg Univers 75 mg 0-18 by mouth ity of tablet 10:51: in the [place] 20 morning. Medical Branch semaglutide 2021-09 Yes 1mg inject 1 Un alexis (OZEMPIC) 1 0-18 mg under ity of mg/dose (4 10:51: the skin Jose Alberto as mg/3 mL) 20 weekly. On Medic al PnIj sundays Branch empaglifloz 2021-09 Yes 1{tbl} Take 1 Un alexis -linaglip-m 0-18 tablet by ity of etformin 10:51: mouth 2 [place] (TRIJARDY 20 (two) Medical XR) times Branch 12.5-2.5-1, daily. 000 mg TBph levocetiriz 2021-09 Yes 5mg Take 5 mg U nivers ine 5 mg 0-18 by mouth ity of tablet 10:51: every [place] 20 evening. Medical Branch azelastine- 2021-09 Yes 2{spray Use 2 Un alexis fluticasone 0-18 } Sprays in ity of 137-50 10:51: each [place] mcg/spray 20 nostril Medical nasal spray daily. Branch AZILSARTAN 2021-09 Yes Take by Univ ers MEDOXOMIL 0-18 mouth. ity of ORAL 10:51: [place] 20 Medical Branch atorvastati 2021-09 Yes Take by Uni vers n calcium 0-18 mouth. ity of (ATORVASTAT 10:51: [place] IN ORAL) 20 Medical Branch ticagrelor 2021-09 Yes Take by Univ ers (BRILINTA 0-18 mouth. ity of ORAL) 10:51: [place] 20 Medical Branch ASPIRIN, 2021-09 Yes 81mg Take 81 mg Uni vers BULK, MISC 0-18 by mouth ity o f 10:51: daily. [place] [address] Medical Branch sitagliptin 2021-09 Yes Take by Uni vers phos/metfor 0-18 mouth. ity of min HCl 10:51: [place] (JANUMET 20 Medical ORAL) Branch dulaglutide 2021-09 Yes inject Univ ers (TRULICITY 0-18 under the ity of [place]) 10:51: skin. [place] [address] Medical Branch olmesartan 2021-09 Yes 40mg Take 40 mg U nivers 40 mg 0-18 by mouth ity of tablet 10:51: in the [place] 20 morning. Medical Branch bempedoic 2021-09 Yes 1{tbl} Take 1 Univ ers acid-ezetim 0-18 tablet by ity of shira 10:51: mouth [place] (NEXLIZET) 20 daily. Medical 180-10 mg Branch Tab metoprolol 2021-09 Yes 25mg Take 25 mg U nivers tartrate 25 0-18 by mouth ity of mg tablet 10:51: in the [place] 20 morning Medical and 25 mg Branch in the evening. clopidogreL 2021-09 Yes 75mg Take 75 mg Univers 75 mg 0-18 by mouth ity of tablet 10:51: in the [place] 20 morning. Medical Branch semaglutide 2021-09 Yes 1mg inject 1 Un alexis (OZEMPIC) 1 0-18 mg under ity of mg/dose (4 10:51: the skin Jose Alberto as mg/3 mL) 20 weekly. On Medic al PnIj sundays Branch empaglifloz 2021-09 Yes 1{tbl} Take 1 Un alexis -linaglip-m 0-18 tablet by ity of etformin 10:51: mouth 2 [place] (TRIJARDY 20 (two) Medical XR) times Branch 12.5-2.5-1, daily. 000 mg TBph levocetiriz 2021-09 Yes 5mg Take 5 mg U nivers ine 5 mg 0-18 by mouth ity of tablet 10:51: every [place] 20 evening. Medical Branch azelastine- 2021-09 Yes 2{spray Use 2 Un alexis fluticasone 0-18 } Sprays in ity of 137-50 10:51: each [place] mcg/spray 20 nostril Medical nasal spray daily. Branch senna Yes 1{tbl} QD Take 1 Methodi (SENOKOT) 2-[address] 8.6 mg 18:19: mouth Hospita tablet 03 daily. l pantoprazol Yes 40mg QD Take 40 mg Methodi e 2-[address] (PROTONIX) 18:19: daily. Hospi ta 40 MG EC 03 l tablet lisinopril Yes 5mg QD Take 5 mg [facility] (PRINIVIL,Z 2-[address] ESTRIL) 5 18:19: daily. Hospit a mg tablet 03 l JANUMET XR Yes TK 1 T PO [facility] 100-1,000 1-[address] mg tablet, 00:00: Hospita ER 00 l multiphase 24 hr Immunizations Ordered Filled Immunization Date Status Comments [facility] e Immunization Name Name SARS-COV-2 COVID-19 2020-10-31 Completed Unive rsity of MODERNA 12+ YRS 00:00:00 [place] Med ical VACCINE Branch SARS-COV-2 COVID-19 2020-10-31 Completed Unive rsity of MODERNA 12+ YRS 00:00:00 [facility] ical VACCINE Branch SARS-COV-2 COVID-19 2020-10-31 Completed Unive rsity of MODERNA 12+ YRS 00:00:00 [facility] ical VACCINE Branch SARS-COV-2 COVID-19 2020-10-31 Completed Unive rsity of MODERNA 12+ YRS 00:00:00 [facility] ical VACCINE Branch SARS-COV-2 COVID-19 2020-10-03 Completed Unive rsity of MODERNA 12+ YRS 00:00:00 [facility] ical VACCINE Branch SARS-COV-2 COVID-19 2020-10-03 Completed Unive rsity of MODERNA 12+ YRS 00:00:00 [facility] ical VACCINE Branch SARS-COV-2 COVID-19 2020-10-03 Completed Unive rsity of MODERNA 12+ YRS 00:00:00 [facility] ical VACCINE Branch SARS-COV-2 COVID-19 2020-10-03 Completed Unive rsity of MODERNA 12+ YRS 00:00:00 [place] Med ical VACCINE Branch Vital Signs Vital Name Observation Time Observation Value Comments Source Systolic blood 2022-07-21 16:41:00 140 mm[Hg] Univer sity of pressure [place] [facility] Diastolic blood 2022-07-21 16:41:00 73 mm[Hg] Unive rsity of pressure [place] [facility] Heart rate 2022-07-21 16:41:00 61 /min Universi ty of [place] [facility] Oxygen saturation in 2022-07-21 16:41:00 96 /min University of Arterial blood by [place] [employer] Pulse oximetry Branch Body temperature 2022-07-21 16:25:00 36.61 Sadaf Univ ersity of [place] [facility] Respiratory rate 2022-07-21 14:29:00 17 /min Univ ersity of [place] [facility] Body height 2022-07-13 16:00:00 190.5 cm Universi ty [facility] [place] [facility] Body weight 2022-07-13 16:00:00 108.863 kg [facility] [place] [facility] BMI 2022-07-13 16:00:00 30.00 kg/m2 [facility] ty [facility] [place] [facility] Systolic blood 2022-07-21 14:35:00 159 mm[Hg] Univer sity of pressure [place] [facility] Diastolic blood 2022-07-21 14:35:00 91 mm[Hg] Unive rsity of pressure [place] [facility] Heart rate 2022-07-21 14:29:00 68 /min Universi ty [facility] [place] [facility] Body temperature 2022-07-21 14:29:00 36.5 Sadaf Univ ersity of [place] [facility] Respiratory rate 2022-07-21 14:29:00 17 /min Univ ersity of [place] [facility] Oxygen saturation in 2022-07-21 14:29:00 99 /min University of Arterial blood by G3 yinka Pulse oximetry Branch Body height 2022-07-13 16:00:00 190.5 cm [facility] [place] [facility] Body weight 2022-07-13 16:00:00 108.863 kg [facility] [place] [facility] BMI 2022-07-13 16:00:00 30.00 kg/m2 [facility] [place] [facility] Procedures Procedure Date / Time Performing Source Performed Clinician PHACOEMULSIFICATION OF 2022-07-21 Colton Ramirez [facility] CATARACT WITH INTRAOCULAR 15:46:00 [facility] LENS IMPLANT POCT GLUCOSE (AUTOMATED) 2022-07-21 Colton Ramirez [facility] 14:34:00 [facility] POCT GLUCOSE (AUTOMATED) 2022-07-21 Colton Ramirez [facility] 14:34:00 [facility] ASSIGNMENT OF BENEFITS 2022-07-19 Doctor Unassigned, [facility] 16:28:42 [place] [facility] Plan of Care Planned Activity Planned Date Details Comments Source Future Scheduled 2023-04-28 Screening [facility] Test 20:39:33 malignant neoplasm of colon (procedure) [code = 257362623] Future Scheduled 2023-04-28 [facility] Test 20:39:33 malignant neoplasm of colon (procedure) [code = 747355593] Future Scheduled 2023-04-28 [facility] Test 20:39:33 malignant neoplasm of colon (procedure) [code = 258339820] Future Scheduled 2023-04-28 COVID-19 VACCINE (#1) [facility] Hospital Test 20:39:33 [code = COVID-19 VACCINE (#1)] Future Scheduled 2023-04-28 [facility] Test 20:39:33 malignant neoplasm of colon (procedure) [code = 963391239] Future Scheduled 2023-04-28 [facility] Test 20:39:33 malignant neoplasm of colon (procedure) [code = 688698842] Future Scheduled 2023-04-28 SHINGLES VACCINES (1 [facility] Test 20:39:33 of 2) [code = SHINGLES VACCINES (1 of 2)] Future Scheduled 2023-04-28 65+ [facility]OC[facility]CCAL [facility] 20:39:33 VACCINE (1 - PCV) [code = 65+ PNEUMOCOCCAL VACCINE (1 - PCV)] Future Scheduled 2023-04-28 [facility] 20:39:33 [code = ZZZ INFLUENZA VACCINE] Encounters Start End Encounter Admission Attending Care Care Encounter Source Date/Time Date/Time Type Type Clinicians Facility Department ID 2021-11-26 Outpatient R MATY RAMIREZ OPH [id number] Univers 14:54:42 COLTON cam [facility] 2023-05-13 2023-05-13 Outpatient FOG_Burke_R AOSM AOSM [id number] Kamryn 00:00:00 00:00:00 Bhavesh [id number] [facility] 2023-05-12 2023-05-12 Outpatient FOG_Burke_R AOSM AOSM [id number] Kamryn 00:00:00 00:00:00 Bhavesh [id number] [facility] 2023-05-11 2023-05-11 Outpatient FOG_Burke_R AOSM AOSM [id number] Kamryn 00:00:00 00:00:00 Bhavesh [id number] Ortho pe [facility] 2022-07-21 2022-07-21 Outpatient R [facility] OPH [id number] Univers 09:25:00 11:51:00 COLTON [facility] 2022-07-21 2022-07-21 [facility] [id number] Univers 09:25:00 11:51:00 Encounter Colton ARTEAGA [id number] ity [place] [id number] [facility] [address] [place] 2022-07-21 2022-07-21 Surgery [facility] [id number] Univers 10:05:00 10:38:00 Colton ARTEAGA [id number] [place] [id number] [facility] [address] [place] 2022-07-19 2022-07-19 Integrity Engineer Uriel, Jimmy Lab Main [facility] [id number] Univers 11:45:00 12:00:00 Visit Colton Ramirez [id number] 0 [place] PROFESSIO [id number] Md dical NAL [address] [facility] 2022-07-19 2022-07-19 Outpatient R [facility] [id number] Univers 11:45:00 11:45:00 COLTON [facility] 2022-07-19 2022-07-19 Orders Doctor SKYE [id number] Univers 00:00:00 00:00:00 Only Unassigned, MOMO 350.1.13.10 ity of [place] [facility] 4.2.7.2.686 Jose Alberto as [id number] [address] 2021-12-07 2021-12-07 [facility] [id number] Univers 14:00:00 14:00:00 COLTON [facility] 2021-12-07 2021-12-07 Outpatient R [facility] [id number] Univers 14:00:00 14:00:00 [id number] [facility] 2021-12-02 2021-12-02 [facility] [id number] Univers 15:15:00 15:15:00 COLTON [facility] 2021-12-02 2021-12-02 [facility] [id number] Univers 15:15:00 15:15:00 COLTON [id number] [facility] 2020-10-31 2020-10-31 Outpatient [facility] [id number] Univers 08:30:00 08:30:00 [id number] [facility] 2020-10-31 2020-10-31 [facility] [id number] Univers 08:30:00 08:30:00 BETY [facility] 2020-10-03 2020-10-03 [facility] [id number] Univers 08:30:00 08:30:00 [facility] Results Test Description Test Time Test Comments Results Result Comments Source POCT GLUCOSE (AUTOMATED) 2022-07-21 14:38:35 Test Item Value Reference Range Interpretation Comme nts POCT GLU (test code = [id number]) 172 mg/dL 70-110 H Lab Interpretation (test code = 88303-9) [facility] 14:38:35 Test Item Value Reference Range Interpretation Comments POCT GLU (test code = [id number]) 172 mg/dL 70-110 H Lab Interpretation (test code = Abnormal 29356-2) [facility]
[2023-05-23] MEDS ORDERED: MAGNESIUM SULFATE 1 gm IVPB 1 GM/100 ML BAG IV ONE (10:57)
[2023-05-23] MEDS ORDERED: METOPROLOL TAR 25 MG TAB ONE (10:57)
[2023-05-23 11:00] LABS: Absolute Lymphocytes (CBC) 2.5 K/uL (0.7-4.9); Hematocrit 46.6 % (39.6-49.0); Lymphocytes % 22.5 % (15.3-44.8); MCV 88.9 fL (80-100); MPV 7.6 fL (7.6-11.3); Platelets 405 thou/uL (152-406); RBC Red Blood Cell Count 5.24 M/uL (4.33-5.43)
[2023-05-23 11:01] LABS: Protime INR 1.05
[2023-05-23 11:13] LABS: Magnesium 2.2 mg/dL (1.6-2.4); Potassium 4.1 mEq/L (3.5-5.1); Troponin High Sensitivity 14.3 pg/mL (<58.9)
--- NOTE | 2023-05-23 11:20 | RAD REPORT ---
EXAM DESCRIPTION: [place] Single View05/23/2023 11:05 am CLINICAL HISTORY: afib rvr COMPARISON: Chest Pa And Lat (2 Views) dated 05/17/2023; Chest Single View dated 12/30/2018; Chest Sing le View dated 05/12/2018; Chest Single View dated 12/29/2017 TECHNIQUE: PA and lateral views of the chest. FINDINGS: The lungs are clear. No pneumothorax or effusion. The cardiomediastinal contours are unre markable. IMPRESSION: No acute cardiopulmonary process.
[2023-05-23] MEDS ORDERED: NA CHLORIDE 0.9% 250 ML ONE (11:35)
--- NOTE | 2023-05-23 11:43 | EDPHYS ---
Physician Documentation [facility] Name: Morris Bowman Age: 67 yrs Sex: Male : 1955 Arrival Date: 05/23/2023 Time: 10:16 Bed 4 Private MD: ED Physician Saul Arias HPI: 05/23 11:37 This 67 yrs old Male presents to ER via Ambulatory with complaints of Dizziness, Low rn Blood Pressure, Heart Rate Issue. 11:37 The patient presents with dizziness, feeling faint, generalized weakness. Onset: The rn symptoms/episode began/occurred this morning. Modifying factors: The symptoms are alleviated by nothing, the symptoms are aggravated by standing up. Associated signs and symptoms: Pertinent negatives: abdominal pain, blurred vision, chest pain, seizure, syncope. Severity of symptoms: At their worst the symptoms were moderate in the emergency department the symptoms have improved. The patient has experienced similar episodes in the past. The patient has been recently seen by a physician:. Pt reports just had heart cath with Dr. Luna, had appt today for afib medication, had episode of warmth in chest and palpitations with heart racing with dizziness, better now. . Historical: - Allergies: 10:24 Codeine; mb9 - PMHx: 10:24 allergies; constipation; Diabetes - NIDDM; Hypertension; Hyperlipidemia; mb9 - PSHx: 10:24 Heart stent; mb9 - Immunization history:: Adult Immunizations up to date. - Social history:: Smoking status: Patient denies any tobacco usage or history of. - Family history:: not pertinent. - Hospitalizations: : No recent hospitalization is reported. ROS: 11:37 Constitutional: Negative for fever, chills, and weight loss, Eyes: Negative for injury, rn pain, redness, and discharge, Neck: Negative for injury, pain, and swelling, Cardiovascular: + palpitations Respiratory: Negative for shortness of breath, cough, wheezing, and pleuritic chest pain, Abdomen/GI: Negative for abdominal pain, nausea, vomiting, diarrhea, and constipation, MS/Extremity: Negative for injury and deformity, Skin: Negative for injury, rash, and discoloration, Neuro: Negative for headache, weakness, numbness, tingling, and seizure. Exam: 11:37 Constitutional: This is a well developed, well nourished patient who is awake, alert, rn and in no acute distress. Head/Face: Normocephalic, atraumatic. Cardiovascular: Tachycardic, irregular. Respiratory: No increased work of breathing, no retractions or nasal flaring. Abdomen/GI: Soft, non-tender Skin: Warm, dry MS/ Extremity: Pulses equal, no cyanosis. Neuro: Awake and alert, GCS 15 11:37 ECG was reviewed by the Attending Physician. rn Vital Signs: 10:19 BP 122 / 84; Pulse 80; Resp 18; Temp 97.5; Pulse Ox 100% on R/A; Weight 106.59 kg; mb9 Height 6 ft. 3 in. ; Pain 0/10; 11:11 BP 121 / 75; Pulse 78; Resp 18 S; Pulse Ox 100% on R/A; Pain 0/10; kc6 12:27 BP 141 / 96; Pulse 84; Resp 19 S; Pulse Ox 100% on R/A; kc6 13:19 BP 128 / 85; Pulse 77; Resp 18; Temp 98.2; Pulse Ox 99% on R/A; ph 10:19 Body Mass Index 29.37 (106.59 kg, 190.5 cm) mb9 10:19 Pain Scale: Adult mb9 11:11 Pain Scale: Adult kc6 MDM: 10:23 Patient medically screened. rn 11:41 Differential diagnosis: cardiac arrhythmia, generalized weakness, hypovolemia, rn idiopathic dizziness, vertigo. Data reviewed: vital signs, nurses notes, lab test result(s), EKG, radiologic studies, plain films, and as a result, I will admit patient. Consideration of Admission/Observation Patient was admitted/placed on observation. Escalation of care including admission/observation considered. Management of patient was discussed with the following: Esol Instructor: Dr. Luna, requests increase in metoprolol and admission for rate control . I considered the following discharge prescriptions or medication management in the emergency department Medications were administered in the Emergency Department. See MAR. Independent interpretation of the following test(s) in the Emergency Department EKG: See my EKG interpretation above X-Ray: My interpretation is CXR images neg for edema per my interpretation. Counseling: I had a detailed discussion with the patient and/or guardian regarding the historical points, exam findings, and any diagnostic results supporting the discharge/admit diagnosis, lab results, radiology results, the need for further work-up and treatment in the hospital. Response to treatment: the patient's symptoms have mildly improved after treatment, and as a result, I will admit patient. 05/23 10:31 Order name: Basic Metabolic Panel; Complete Time: 11:20 rn 05/23 10:31 Order name: CBC with Diff; Complete Time: 11:20 rn 05/23 10:31 Order name: Magnesium; Complete Time: 11:20 rn 05/23 10:31 Order name: NT PRO-BNP; Complete Time: 11:20 rn 05/23 10:31 Order name: PT-INR; Complete Time: 11:20 rn 05/23 10:31 Order name: Troponin HS; Complete Time: 11:20 rn 05/23 12:26 Order name: Magnesium EDOH 05/23 12:26 Order name: Phosphorus EDOH 05/23 12:28 Order name: T4 Free EDOH 05/23 12:28 Order name: Thyroid Stimulating Hormone EDOH 05/23 12:28 Order name: Urinalysis w/ reflexes EDOH 05/23 12:28 Order name: Basic Metabolic Panel EDOH 05/23 12:28 Order name: Basic Metabolic Panel EDOH 05/23 12:28 Order name: CBC with Automated Diff EDOH 05/23 12:28 Order name: CBC with Automated Diff EDOH 05/23 12:28 Order name: Lipid Profile EDOH 05/23 12:28 Order name: Lipid Profile EDOH 05/23 10:31 Order name: XRAY Chest (1 view); Complete Time: 11:21 rn 05/23 12:42 Order name: ERT ORTHOSTATIC V/S EDOH 05/23 12:42 Order name: ERT ORTHOSTATIC V/S EDOH 05/23 12:42 Order name: ERT ORTHOSTATIC V/S EDOH 05/23 12:42 Order name: ERT ORTHOSTATIC V/S EDOH 05/23 10:31 Order name: EKG; Complete Time: 10:32 rn 05/23 12:26 Order name: 60g Consistent Carbohydrate (ADA 1800/2000) EDOH 05/23 12:26 Order name: CONS Physician Consult EDOH 05/23 10:31 Order name: Cardiac monitoring; Complete Time: 10:44 rn 05/23 10:31 Order name: EKG - Nurse/Tech; Complete Time: 10:44 rn 05/23 10:31 Order name: IV Saline Lock; Complete Time: 10:44 rn 05/23 10:31 Order name: Labs collected and sent; Complete Time: 10:44 rn 05/23 10:31 Order name: O2 Per Protocol; Complete Time: 10:44 rn 05/23 10:31 Order name: O2 Sat Monitoring; Complete Time: 10:44 rn EC:37 Rate is 129 beats/min. Rhythm is irregular. QRS [place] is Normal. QRS interval is normal. rn QT interval is normal. T waves are Normal. No ST changes noted. Clinical impression: Atrial Flutter. Interpreted by me. Reviewed by me. Administered Medications: 10:53 Drug: Magnesium Sulfate IVPB 1 grams Route: IVPB; Infused Over: 1 hrs; Site: left kc6 antecubital; 12:06 Follow up: Response: No adverse reaction; IV Status: Completed infusion; IV Intake: kc6 100ml 10:53 Drug: Metoprolol PO 25 mg Route: PO; kc6 11:42 Follow up: Response: No adverse reaction; Blood pressure is unchanged; Cardiac rhythm kc6 changed 11:27 Drug: NS 0.9% IV 250 ml Route: IV; Rate: bolus; Site: left antecubital; kc6 12:06 Follow up: Response: No adverse reaction; IV Status: Completed infusion; IV Intake: kc6 250ml Disposition Summary: 05/23/23 11:43 Hospitalization Ordered Hospitalization Status: Inpatient Admission rn Provider: Prasanna Minor rn [facility]n Condition: Stable rn Problem: new rn Symptoms: have improved rn Bed/Room Type: Standard rn Room Assignment: [facility](05/23/23 12:57) blayne Diagnosis - Dizziness and giddiness rn - Persistent atrial fibrillation - with RVR(05/23/23 11:43) rn Forms: - Medication Reconciliation Form rn - SBAR form rn - Leadership Thank You Letter rn Signatures: Dispatcher [employer] Saul Smith MD MD rn Aguilar, Jose, RN RN [email or web address] Aliyah Briggs RN RN [email or web address] Shabnam Eugene, RN RN mb9 Corrections: (The following items were deleted from the chart) 11:43 11:43 Persistent atrial fibrillation rn rn 12:57 11:43 rn ja1
--- NOTE | 2023-05-23 11:43 | ER ---
Nurse's Notes [facility] Name: Morris Bowman Age: 67 yrs Sex: Male : 1955 Arrival Date: 05/23/2023 Time: 10:16 Bed 4 Private MD: Diagnosis: Persistent atrial fibrillation-with RVR;Dizziness and giddiness Presentation: 05/23 10:19 Chief complaint: Patient states: "I had a heart cath Tuesday with doctor Jeremy and they darwin found out I had a irregular HR. But this morning when I took my BP it was 93/71 and my HR was 147. I felt dizzy this morning. I have a appointment with Dr. Luna today to check everything out but wanted to come here first since I felt like this". Coronavirus screen: At this time, the client does not indicate any symptoms associated with coronavirus-19. Ebola Screen: No symptoms or risks identified at this time. Initial Sepsis Screen: Does the patient meet any 2 criteria? No. Patient's initial sepsis screen is negative. Does the patient have a suspected source of infection? No. Patient's initial sepsis screen is negative. Risk Assessment: Do you want to hurt yourself or someone else? Patient reports no desire to harm self or others. Onset of symptoms was May 23, 2023. 10:19 Method Of Arrival: Ambulatory mb9 10:19 Acuity: ALEKSANDRA 3 mb9 11:11 Acuity: ALEKSANDRA 2 kc6 Triage Assessment: 10:25 General: Appears in no apparent distress. Behavior is calm, cooperative. Pain: Denies mb9 pain. EENT: No deficits noted. Neuro: Level of Consciousness is awake, alert, obeys commands, Oriented to person, place, time, situation, Appropriate for age. Neuro: Hernandez Agitation-Sedation Scale (RASS): 0 - Alert and Calm Reports dizziness. Cardiovascular: Denies chest pain, shortness of breath, Patient's skin is warm and dry. Respiratory: Airway is patent Respiratory effort is even, unlabored, Respiratory pattern is regular, symmetrical. Derm: Skin is pink, warm \\T\\ dry. Musculoskeletal: Range of motion: intact in all extremities. Historical: - Allergies: 10:24 Codeine; mb9 - PMHx: 10:24 allergies; constipation; Diabetes - NIDDM; Hypertension; Hyperlipidemia; mb9 - PSHx: 10:24 Heart stent; mb9 - Immunization history:: Adult Immunizations up to date. - Social history:: Smoking status: Patient denies any tobacco usage or history of. - Family history:: not pertinent. - Hospitalizations: : No recent hospitalization is reported. Screenin:56 [facility] ED Fall Risk Assessment (Adult) History of falling in the last 3 months, kc6 including since admission No falls in past 3 months (0 pts) Confusion or Disorientation No (0 pts) Intoxicated or Sedated No (0 pts) Impaired Gait No (0 pts) Mobility Assist Device Used No (0 pt) Altered Elimination No (0 pt) Score/Fall Risk Level 0 - 2 = Low Risk. Abuse screen: Denies threats or abuse. Denies injuries from another. Nutritional screening: No deficits noted. Tuberculosis screening: No symptoms or risk factors identified. Assessment: 10:56 General: Appears in no apparent distress. comfortable, Behavior is calm, cooperative, kc6 appropriate for age. Pain: Denies pain. Neuro: Level of Consciousness is awake, alert, obeys commands, Oriented to person, place, time, situation, Appropriate for age Reports dizziness. Cardiovascular: Denies chest pain, Heart tones S1 S2 present Capillary refill < 3 seconds Rhythm is atrial fibrillation with rapid ventricular response. Respiratory: Airway is patent Trachea midline Respiratory effort is even, unlabored, Respiratory pattern is regular, symmetrical, Breath sounds are clear bilaterally. Denies shortness of breath. GI: No signs and/or symptoms were reported involving the gastrointestinal system. : No signs and/or symptoms were reported regarding the genitourinary system. EENT: No signs and/or symptoms were reported regarding the EENT system. Derm: No signs and/or symptoms reported regarding the dermatologic system. Skin is intact, is healthy with good turgor, Skin is pink, warm \\T\\ dry. Musculoskeletal: No signs and/or symptoms reported regarding the musculoskeletal system. Circulation, motion, and sensation intact. Capillary refill < 3 seconds, Range of motion: intact in all extremities. 11:42 Reassessment: Patient appears in no apparent distress at this time. No changes from kc6 previously documented assessment. Patient and/or family updated on plan of care and expected duration. Pain level reassessed. Patient is alert, oriented x 3, equal unlabored respirations, skin warm/dry/pink. 12:27 Reassessment: Patient appears in no apparent distress at this time. No changes from kc6 previously documented assessment. Patient and/or family updated on plan of care and expected duration. Pain level reassessed. Patient is alert, oriented x 3, equal unlabored respirations, skin warm/dry/pink. 13:06 Reassessment: attempted to call report to 2nd floor. Nurse Patricia is printing and SBR. kc6 Vital Signs: 10:19 BP 122 / 84; Pulse 80; Resp 18; Temp 97.5; Pulse Ox 100% on R/A; Weight 106.59 kg; mb9 Height 6 ft. 3 in. ; Pain 0/10; 11:11 BP 121 / 75; Pulse 78; Resp 18 S; Pulse Ox 100% on R/A; Pain 0/10; kc6 12:27 BP 141 / 96; Pulse 84; Resp 19 S; Pulse Ox 100% on R/A; kc6 13:19 BP 128 / 85; Pulse 77; Resp 18; Temp 98.2; Pulse Ox 99% on R/A; ph 10:19 Body Mass Index 29.37 (106.59 kg, 190.5 cm) mb9 10:19 Pain Scale: Adult mb9 11:11 Pain Scale: Adult kc6 ED Course: 10:17 Patient arrived in ED. mg5 10:19 Arm band placed on. mb9 10:23 Saul Arias MD is Attending Physician. rn 10:24 Triage completed. mb9 10:44 Inserted saline lock: 20 gauge in left antecubital area, using aseptic technique. Blood kc6 collected. 10:45 Aliyah Briggs, ROSI is Primary Nurse. kc6 10:56 Patient has correct armband on for positive identification. Placed in gown. Bed in low kc6 position. Call light in reach. Side rails up X 1. Adult w/ patient. Client placed on continuous cardiac and pulse oximetry monitoring. NIBP monitoring applied. bus driver/monitor on. 11:07 XRAY Chest (1 view) In Process Unspecified. EDMS 11:42 Prasanna Minor is Hospitalizing Provider. rn 13:18 No provider procedures requiring assistance completed. Patient admitted, IV remains in ph place. Administered Medications: 10:53 Drug: Magnesium Sulfate IVPB 1 grams Route: IVPB; Infused Over: 1 hrs; Site: left kc6 antecubital; 12:06 Follow up: Response: No adverse reaction; IV Status: Completed infusion; IV Intake: kc6 100ml 10:53 Drug: Metoprolol PO 25 mg Route: PO; kc6 11:42 Follow up: Response: No adverse reaction; Blood pressure is unchanged; Cardiac rhythm kc6 changed 11:27 Drug: NS 0.9% IV 250 ml Route: IV; Rate: bolus; Site: left antecubital; kc6 12:06 Follow up: Response: No adverse reaction; IV Status: Completed infusion; IV Intake: kc6 250ml Medication: 13:18 VIS not applicable for this client. ph Intake: 12:06 IV: 100ml; Total: 100ml. kc6 12:06 IV: 250ml; Total: 350ml. kc6 Outcome: 11:43 Decision to Hospitalize by Provider. rn 13:18 Admitted to Tele accompanied by tech, family with patient, via wheelchair, room 228, with chart. 13:18 Condition: stable 13:18 Instructed on the need for admit. 13:43 Patient left the ED. Signatures: Dispatcher [employer] EDSaul Valente MD MD rn Hall, Patricia, RN RN Aliyah Escoto RN RN kc6 Shabnam Eugene RN RN Tory Bright [facility]
--- NOTE | 2023-05-23 12:12 | EKG ---
Test Date: 2023-05-23 Test Time: 10:41:01 Allopathic Doctor: LYDIA MEASUREMENT RESULTS: Intervals: Rate: 129 RI: QRSD: 78 QT: 240 QTc: 351 [place]: P: 260 RI: QRS: -16 T: 64 INTERPRETIVE STATEMENTS: Atrial flutter with variable AV block Abnormal ECG Compared to ECG 05/17/2023 15:20:31 Atrial fibrillation no longer present ST (T wave) deviation no longer present Myocardial infarct finding no longer present Electronically Signed On 05-23-23 12:11:41 CDT by Sanjeev Luna
[2023-05-23] MEDS ORDERED: ACETAMINOPHEN 325 MG TABLET PO PRN (12:19)
[2023-05-23] MEDS ORDERED: TRAMADOL HCL 50 MG TAB PO PRN (12:19)
[2023-05-23] MEDS ORDERED: ONDANSETRON 4 MG/2 ML VIAL IV PRN (12:24)
[2023-05-23] MEDS ORDERED: D50W 25 GM/50 ML SYRINGE IV PRN (12:26)
[2023-05-23] MEDS ORDERED: GLUCAGON 1 MG/VIAL IM PRN (12:26)
--- NOTE | 2023-05-23 12:30 | P.HP ---
Certification for Inpatient Patient admitted to: Observation With expected LOS: <2 Midnights Patient will require the following post-hospital care: None Practitioner: I am a practitioner with admitting privileges, knowledge of patient current condition, hospital course, and medical plan of care. Services: Services provided to patient in accordance with Admission requirements found in Title 42 Section 412.3 of the Code of Federal Regulations Patient History Date of Service: 05/23/23 Reason for admission: Dizziness History of Present Illness: Patient is a 67-year-old male with a past medical history significant for DM 2, hypertension, hyperlipidemia, BPH, GERD who presents with complaint of dizziness onset this morning. Patient reported that he had a left heart cath on Sunday 05/20. Patient reported that he felt flushed today> Patient reported associated signs and symptoms of palpitations and generalized weakness. Patient denies any other signs or symptoms. Symptoms are aggravated or relieved by nothing. Patient was brought to the hospital for medical evaluation.. Allergies codeine Allergy (Verified 12/30/18 11:03) Itching/Hives/Rash Home Medications: Aspirin [Aspirin EC 81 MG] 81 mg PO DAILY 12/30/18 Atorvastatin Calcium [Lipitor] 80 mg PO DAILY 12/30/18 Azilsartan Medoxomil [Edarbi] 40 mg PO DAILY 12/30/18 Dulaglutide [Trulicity] 0.5 ml ID SEECOM 12/30/18 Metoprolol Tartrate [Lopressor*] 12.5 mg PO BID 12/30/18 Sitagliptin Phos/Metformin HCl [Janumet 50-1,000 mg Tablet] 50 - 100 mg PO BEDTIME 12/30/18 Ticagrelor [Brilinta*] 90 mg PO BID 12/30/18 Azithromycin Tab [Zithromax*] 250 mg PO DAILY #4 tab 01/01/19 Cefuroxime Axetil [Cefuroxime] 500 mg PO BID #10 tab 01/01/19 Docusate [Colace Cap*] 100 mg PO BID cap 01/01/19 Pantoprazole [Protonix Tab*] 40 mg PO DAILYAC #30 tab 01/01/19 Polyethyl Gly 3350 [Glycolax*] 17 gm PO DAILY udbot 01/01/19 Tamsulosin [Flomax*] 0.4 mg PO BEDTIME #30 cap 04/08/19 - Past Medical/Surgical History Diabetic: Yes -: DM II -: HTN -: tobacco abuse -: constipation -: allergies -: Cholecystectomy -: heart stents -: hernia repair - Family History Father Notes: dementia Mother -: Cancer - Social History Smoking Status: Former smoker Alcohol use: No CD- Drugs: No Caffeine use: Yes Place of Residence: Home Review of Systems General: Unremarkable Eyes: Unremarkable ENT: Unremarkable Respiratory: Unremarkable Cardiovascular: Palpitations Gastrointestinal: Unremarkable Genitourinary: Unremarkable Musculoskeletal: Unremarkable Integumentary: Unremarkable Neurological: Weakness, Other (Dizziness) Lymphatics: Unremarkable Physical Examination - Physical Exam General: Alert, In no apparent distress, Oriented x3, Cooperative HEENT: Atraumatic, PERRLA, Mucous membr. moist/pink, EOMI, Sclerae nonicteric Neck: Supple, 2+ carotid pulse no bruit, No LAD, Without JVD or thyroid abnormality Respiratory: Clear to auscultation bilaterally, Normal air movement Cardiovascular: No edema, Normal S1 S2, Irregular heart rate/rhythm Capillary refill: <2 Seconds Gastrointestinal: Normal bowel sounds, Soft and benign, No tenderness Musculoskeletal: No clubbing, No swelling, No tenderness Integumentary: No rashes, No significant lesion Neurological: Normal speech, Normal tone, Normal affect Lymphatics: No axilla or inguinal lymphadenopathy - Studies Laboratory Data (last 24 hrs) 05/23/23 05/23/23 05/23/23 10:41 10:41 10:41 WBC 11.10 H Hgb 15.6 Hct 46.6 Plt Count 405 PT 11.5 INR 1.05 Sodium 131 L Potassium 4.1 BUN 30 H Creatinine 1.79 H Glucose 300 H Magnesium 2.2 Assessment and Plan - Plan --A-fib with RVR. Patient medicated with metoprolol x 1 dose in the ER. Rate now controlled. Continue metoprolol. Telemetry to monitor for any malignant arrhythmia. --Hypertension. Poorly controlled. We will hold off on ARB due to low renal functions.. Continue home medications and labetalol as needed. --GERD. Continue Protonix. --DM2 with hyperglycemia. BS monitoring with sliding scale insulin, premeal insulin and Lantus. -- BPH. Continue Flomax. --Hyperlipidemia. Continue statin. --History of constipation. Continue home medications. --Dizziness. Likely secondary to A-fib. Patient reported that he had an echocardiogram and carotid Doppler 2 weeks ago with his dba manager--results unknown. We will get some orthostatic blood pressures. Telemetry to monitor for any significant arrhythmia. Fall precautions. Continue supportive care -- Mild leukocytosis. Likely reactive. We will continue to monitor WBC levels. --History of CAD with stents. Continue aspirin, Plavix and statin --DVT prophylaxis with Lovenox subQ Discharge Plan: Home Plan to discharge in: 72 Hours - Advance Directives Does patient have a Living Will: No Does patient have a Durable POA for Healthcare: No - Code Status/Comfort Care Code Status Assessed: Yes Physician Review: Patient Assessed, Agree with Above Assessment and Plan Critical Care: No
[2023-05-23] MEDS: METOPROLOL TAR 50 MG TAB PO SCH ×2 (14:51→20:04)
[2023-05-23 15:11] VITALS: BMI 29.3
[2023-05-23] MEDS: INSULIN -REGULAR HUMAN 50 UNIT/0.5 ML ML SQ SCH ×2 (16:30→19:32)
[2023-05-23] MEDS: INSULIN LISPRO 100 UNIT/1 ML SQ SCH (17:00)
[2023-05-23] MEDS ORDERED: AMIODARONE HCL 150 MG in D5W 100 ML IV STA (18:57)
[2023-05-23] MEDS ORDERED: AMIODARONE HCL 450 MG in D5W 241 ML IV SCH (19:00)
[2023-05-23] MEDS: INSULIN GLARGINE 100 UNIT/ML SQ SCH (19:32)
[2023-05-23 20:24] LABS: Magnesium 2.4 mg/dL (1.6-2.4); Phosphorus 3.4 mg/dL (2.5-4.9); Thyroid Stimulating Hormone 1.13 uIU/mL (0.358-3.740)
--- NOTE | 2023-05-23 21:58 | CON ---
Date of Consultation: 05/23/2023 Reason For Consultation: Atrial fibrillation with rapid ventricular response. History Of Present Illness: A 67-year-old male with history of diabetes, hypertension, dyslipidemia, presented with palpitations and dizziness, found to be in AFib with rapid ventricular response. Den ies having any chest pain, shortness of breath. With beta dean, responded very well and heart rat e improved to the mid 80s. Past Medical History: As outlined above in the HPI. Also has coronary artery disease. Medications: Refer to reconciliation sheet for detailed list. Allergies: CODEINE. Family History: No premature coronary artery disease or cancer. Social History: Does not smoke or drink. Does not use any drugs. Review of Systems: All systems reviewed and they were negative except what mentioned in HPI. Physical Examination: Vital Signs: Reviewed. Head and Neck: Pupils are equal, reactive to light. Intact eye movements. No JVD. No cervical lym phadenopathy. Neck is supple. Thyroid is not enlarged. Lungs: Clear to auscultation bilaterally. No rhonchi, wheezing, or crackles. No accessory muscle u se. Heart: Irregularly irregular. No extra sounds. Abdomen: Soft, nontender. Bowel sounds positive. No organomegaly. No masses or hernia. No rigidi ty or rebound. Extremities: No edema, clubbing, or cyanosis. Intact pulses. Skin: No rash. Neurologic: Alert, awake, oriented x3. No acute focal deficits appreciated. Lymph Nodes: No cervical lymphadenopathy. Investigations: Labs were reviewed. BUN 30, creatinine 1.79, hemoglobin 15.6. Assessment/recommendations: 1.Atrial fibrillation with rapid ventricular response. Started on IV amiodarone 150 mg x1 and then 1 mg/minute for 6 hours and then 0.5 mg/minute for 16 hours and start him on Eliquis 5 mg twice a day . 2.Acute renal failure. Probably due to dehydration, the patient should be hydrated gently overnight . Re-evaluate labs in the morning. 3.Hypertension. Blood pressure is controlled. Continue current management. SR/MODL Voice ID: [id number] Report ID: [id number]
[2023-05-23 23:37] VITALS: O2SAT 98
[2023-05-24 03:25] LABS: Absolute Lymphocytes (CBC) 3.3 K/uL (0.7-4.9); Hematocrit 45.2 % (39.6-49.0); Lymphocytes % 32.1 % (15.3-44.8); MCV 88.1 fL (80-100); MPV 7.7 fL (7.6-11.3); Platelets 318 thou/uL (152-406); RBC Red Blood Cell Count 5.13 M/uL (4.33-5.43)
[2023-05-24 03:43] LABS: Potassium 3.8 mEq/L (3.5-5.1)
--- NOTE | 2023-05-24 07:22 | P.PN ---
Date of Service: 05/24/23 Subjective: doing okay remains in A-fib HR improved no acute events overnight ROS: 10 point ROS as noted above, otherwise negative Physical Exam: GEN: Alert, oriented, NAD HEENT: Normal conjunctiva, sclera anicteric CV: Irregularly Irregular rate and rhythm, no edema Pulm: Nonlabored respirations on room air ABD: Soft, nontender, nondistended MSK: No joint tenderness Integumentary: No rashes Neuro: Normal speech, normal affect vitals reviewed Problem List: A-fib with RVR, new onset. Dizziness History of CAD with stents Hypertension GERD DM2 with hyperglycemia BPH Hyperlipidemia H/o constipation A-fib with RVR, new onset. Patient medicated with metoprolol x 1 dose in the ER. Rate now controlled. Monitor on tele Cardiology consulted cont IV amiodarone increased metoprolol to 50 mg BID, continue Cont eliquis Dizziness Likely secondary to A-fib. Patient reported that he had an echocardiogram and carotid Doppler 2 weeks ago with his chief quality officer--results unknown. orthostatic vitals negative Fall precautions. Continue supportive care History of CAD with stents. Continue aspirin, Plavix and statin Hypertension. Continue home medications and labetalol as needed. GERD. Continue Protonix. DM2 with hyperglycemia. BS monitoring with sliding scale insulin, premeal insulin and Lantus. BPH. Continue Flomax. Hyperlipidemia. Continue statin. History of constipation. Continue home medications. VTE: Eliquis Code: Full Dispo: Home
[2023-05-24] MEDS: INSULIN -REGULAR HUMAN 50 UNIT/0.5 ML ML SQ SCH ×4 (07:30→19:40)
[2023-05-24] MEDS: APIXABAN 5 MG TABLET PO SCH ×2 (08:29→19:39)
[2023-05-24] MEDS: METOPROLOL TAR 50 MG TAB PO SCH ×2 (08:29→19:39)
[2023-05-24] MEDS: INSULIN LISPRO 100 UNIT/1 ML SQ SCH ×3 (08:31→16:39)
[2023-05-24] MEDS ORDERED: ENOXAPARIN 40 MG/0.4 ML SQ SCH (09:00)
[2023-05-24] MEDS ORDERED: CLOPIDOGREL 75 MG TABLET PO SCH (09:00)
[2023-05-24] MEDS ORDERED: POTASSIUM CL SA 10 MEQ TAB PO ONE (09:00)
[2023-05-24] MEDS ORDERED: ASPIRIN 81 MG CHEWABLE TABLET PO SCH (09:00)
[2023-05-24 14:00] LABS: Specific Gravity 1.017 (1.005-1.030); Urine Bilirubin NEGATIVE (Negative); Urine Blood Negative (Negative); Urine Clarity Clear (Clear); Urine Color Light-Yellow (Yellow); Urine Glucose 4+ (Over) (Negative); Urine Protein NEGATIVE (Negative); Urine Urobilinogen Normal (Normal)
[2023-05-24 16:53] VITALS: TEMP 97.2
[2023-05-24] MEDS ORDERED: AMIODARONE HCL 200 MG TAB PO SCH ×2 (17:00→19:00)
[2023-05-24] MEDS ORDERED: AMIODARONE HCL 900 MG in Dextrose 5%-Water 482 ML IV SCH (19:00)
--- NOTE | 2023-05-24 19:31 | PN ---
Date of Progress Note: 05/24/2023 Subjective: Seen by bedside. Doing clinically well. His heart rate is controlled with amiodarone. Review of Systems: No chest pain, shortness of breath, orthopnea, or cough. No nausea, vomiting, or diarrhea. All othe r systems were reviewed, they were negative. Objective: Vital Signs: Reviewed. Head and Neck: Pupils are equal, reactive to light. Intact eye movements. No JVD. No cervical lym phadenopathy. Neck is supple. Thyroid is not enlarged. Lungs: Clear to auscultation bilaterally. No rhonchi, wheezing, or crackles. No accessory muscle u se. Heart: Irregularly irregular. No extra sounds. Abdomen: Soft, nontender. Bowel sounds positive. No organomegaly. No masses or hernia. No rigidi ty or rebound. Extremities: No edema, clubbing, or cyanosis. Intact pulses. Skin: No rash. No nodule. Neurologic: Alert, awake, oriented x3. No acute focal deficits appreciated. Investigations: Labs were reviewed. Assessment And Recommendations: 1.Atrial fibrillation with rapid ventricular response. Now rate is controlled and I can switch amio darone to oral and keep metoprolol and start him on Eliquis 5 mg twice a day and discontinue the Plav ix as the last time he had a stent was many, many years ago. Keep baby aspirin going and the patient can be released to follow up with me in the office in 2 weeks. 2.Hypertension. Blood pressure is controlled. Continue current management. 3.Acute renal failure due to dehydration. This is resolved. SR/MODL Voice ID: [id number] Report ID: [id number]
[2023-05-24] MEDS: INSULIN GLARGINE 100 UNIT/ML SQ SCH (19:41)
[2023-05-24 19:42] VITALS: BP 139/81
--- NOTE | 2023-05-24 22:52 | P.DS ---
Admission Date: 05/23/23 Discharge Date: 05/24/23 Disposition: ROUTINE DISCHARGE Discharge Condition: GOOD Reason for Admission: Dizziness Consultations: Cardiology - Dr. Luna Brief History of Present Illness: 67yo M, PMH: DM2, HTN, HLD, BPH, GERD, with complaint of dizziness onset this morning. Patient reported that he had a left heart cath on Sunday 05/20. He felt flushed prior to ER presentation and felt palpitations and generalized weakness. Patient denies any other signs or symptoms. Symptoms are aggravated or relieved by nothing. Patient was brought to the hospital for medical evaluation.. Hospital Course: Problem List: A-fib with RVR, new onset. Dizziness secondary to afib History of CAD with stents Hypertension GERD DM2 with hyperglycemia BPH Hyperlipidemia H/o constipation Patient presented with dizziness, chest palpitations. Troponin were negative. EKG, normal, chest x-ray negative for any acute findings. BNP mildly elevated. He was found to be in a-fib with RVR. Cardiology was consulted. Recommended to increase his metoprolol to 50 mg BID. Patient had improvement of his HR but remained in A-fib, so he was started on IV Amiodarone. Dr. Luna recommended to follow up as outpatient in 2 weeks. If remains in afib, for consideration of electrical cardioversion Medications: New: Amiodarone 200mg twice a daily Eliquis 5 mg twice a day Continue metoprolol at current dose, continue aspirin 81mg continue other home medications as previously prescribed except for: Stop: plavix Follow up: PCP 3-5 days Cardiology in 2 weeks Physical Exam: GEN: Alert, oriented, NAD HEENT: Normal conjunctiva, sclera anicteric CV: Irregularly Irregular rhythm, HR: 70, no edema Pulm: Nonlabored respirations on room air ABD: Soft, nontender, nondistended Neuro: Normal speech, normal affect Vital Signs/Physical Exam: Temp Pulse Resp BP Pulse Ox 97.2 F 79 18 139/81 98 05/24/23 16:00 05/24/23 19:39 05/24/23 16:00 05/24/23 19:39 05/24/23 16:00 Laboratory Data at Discharge: WBC 10.30 thou/uL (4.3-10.9) 05/24/23 02:16 Hgb 15.5 g/dL (13.6-17.9) 05/24/23 02:16 Hct 45.2 % (39.6-49.0) 05/24/23 02:16 Plt Count 318 thou/uL (152-406) 05/24/23 02:16 PT 11.5 SECONDS (9.5-12.5) 05/23/23 10:41 INR 1.05 05/23/23 10:41 Sodium 134 mEq/L (136-145) L 05/24/23 02:16 Potassium 3.8 mEq/L (3.5-5.1) 05/24/23 02:16 BUN 26 mg/dL (7-18) H 05/24/23 02:16 Creatinine 1.35 mg/dL (0.70-1.30) H 05/24/23 02:16 Glucose 98 mg/dL (74-106) 05/24/23 02:16 Phosphorus 3.4 mg/dL (2.5-4.9) 05/23/23 19:43 Magnesium 2.4 mg/dL (1.6-2.4) 05/23/23 19:43 Triglycerides 137 mg/dL (<150) 05/24/23 02:16 Cholesterol 104 mg/dL (<200) 05/24/23 02:16 HDL Cholesterol 26 mg/dL (40-60) L 05/24/23 02:16 Cholesterol/HDL Ratio 4.00 05/24/23 02:16 Home Medications: Aspirin [Aspirin EC 81 MG] 81 mg PO DAILY 12/30/18 Metoprolol Tartrate [Lopressor*] 12.5 mg PO BID 12/30/18 Bempedoic Acid/Ezetimibe [Nexlizet 180-10 mg Tablet] 1 tab PO DAILY 05/23/23 Empaglifloz/Linaglip/Metformin [Trijardy Xr 12.5-2.5-1,000 mg] 2 tab PO DAILY 05/23/23 Olmesartan Medoxomil [Benicar] 1 tab PO DAILY 05/23/23 Semaglutide [Ozempic] 1 mg SQ SEECOM 05/23/23 predniSONE [Deltasone*] 1 tab PO TID 05/23/23 Amiodarone HCl [Cordarone*] 200 mg PO BID 30 Days #60 tab 05/24/23 Apixaban [Eliquis] 5 mg PO BID 30 Days #60 tab 05/24/23 New Medications: Amiodarone HCl [Cordarone*] 200 mg PO BID 30 Days #60 tab Apixaban [Eliquis] 5 mg PO BID 30 Days #60 tab Physician Discharge Instructions: Patient presented with dizziness, chest palpitations. Troponin were negative. EKG, normal, chest x-ray negative for any acute findings. BNP mildly elevated. He was found to be in a-fib with RVR. Cardiology was consulted. Recommended to increase his metoprolol to 50 mg BID. Patient had improvement of his HR but remained in A-fib, so he was started on IV Amiodarone. Dr. Luna recommended to follow up as outpatient in 2 weeks. If remains in afib, for consideration of electrical cardioversion Medications: New: Amiodarone 200mg twice a daily Eliquis 5 mg twice a day Continue metoprolol at current dose, continue aspirin 81mg continue other home medications as previously prescribed except for: Stop: plavix Follow up: PCP 3-5 days Cardiology in 2 weeks Followup: JOHAN PRADO [Primary Care Provider] - (call to schedule an appointment in 3-5 days ) Sanjeev Luna MD [ACTIVE - CAN ADMIT] - (call to schedule an appointment in 2 weeks.) Time spent managing pt's care (in minutes): 45
== END 2023-05-24 19:44 | disposition home or self-care (01) ==
LOC: ER 10:16 → 2ND 12:18
PROVIDERS: ADMIT Internal Medicine; ATTEND Hospitalist
DX: I48.20 Chronic atrial fibrillation, unspecified (principal); I10 Essential (primary) hypertension; E78.5 Hyperlipidemia, unspecified; E11.65 Type 2 diabetes mellitus with hyperglycemia; N17.9 Acute kidney failure, unspecified; N40.0 Benign prostatic hyperplasia without lower urinary tract symptoms; K21.9 Gastro-esophageal reflux disease without esophagitis; I25.10 Atherosclerotic heart disease of native coronary artery without angina pectoris; Z95.5 Presence of coronary angioplasty implant and graft; Z88.6 Allergy status to analgesic agent
CPT/HCPCS: 96365; 93005; 85025 ×2; 80048 ×2; 36415; 83735 ×2; 84100; 85610; 80061; 82947 ×6; 84443; 81003; 84484; 84439; 83880; 71045; 99285; J1815 ×9; J3475; J0282 ×2; J7060; J7050; G0378

== ENCOUNTER 2025-07-19 05:31 | Emergency (ER) | payer BC, OTHER ==
[2025-07-19] MEDS ORDERED: ACETAMINOPHEN 500 MG TAB ONE (05:58)
[2025-07-19 06:03] LABS: Absolute Lymphocytes (CBC) 0.5 K/uL (0.7-4.9); Hematocrit 39.9 % (39.6-49.0); Hemoglobin 13.0 g/dL (13.6-17.9); MCH 28.3 pg (27.0-35.0); MCHC 32.7 g/dL (32.0-36.0); MCV 86.7 fL (80-100); MPV 7.2 fL (7.6-11.3); Nucleated RBC Absolute Count 0.0 (0-0); Nucleated Red Blood Cells % 0.0 % (0-0); RBC Red Blood Cell Count 4.60 M/uL (4.33-5.43); White Blood Count 16.80 thou/uL (4.3-10.9)
[2025-07-19 06:24] LABS: ALT/SGPT 311.0 U/L (16-61); AST/SGOT 336.0 U/L (15-37); Albumin 3.2 g/dL (3.4-5.0); Albumin/Globulin Ratio 0.8 (1.1-1.8); Alkaline Phosphatase 483.0 U/L (45-117); Anion Gap 10.8 mEq/L (5.0-15.0); BUN Blood Urea Nitrogen 20.0 mg/dL (7-18); Globulin 4.1 g/dL (2.3-3.5); Glucose Level 192.0 mg/dL (74-106); Lipase 91.0 U/L (13-75); Potassium 3.8 mEq/L (3.5-5.1); Troponin High Sensitivity 11.0 pg/mL (<58.9)
[2025-07-19 06:40] LABS: Urine Microscopic Reflex YN NO UMIC
[2025-07-19] MEDS ORDERED: PIPERACIL/TAZO 4.5 GM VIAL IV ONE (06:48)
[2025-07-19] MEDS ORDERED: NA CHLORIDE 0.9% 100 ML ONE (06:48)
[2025-07-19 07:31] LABS: Blood Morphology Comment NOT SEEN (NOT SEEN); White Blood Cell Scan OK (OK)
--- NOTE | 2025-07-19 07:41 | RAD REPORT ---
EXAMINATION: ONE VIEW CHEST XR CLINICAL INDICATION: CHEST PAIN TECHNIQUE: Frontal chest projection is submitted. Examination is limited by patient positioning and t echnique. COMPARISON: 05/30/2025 FINDINGS: Patchy opacity in the left lung base associated with a pleural effusion noted. This is probably infil trate/pneumonia. The right lung is grossly clear. The heart is moderately enlarged in size. Sternotomy wires present.
--- NOTE | 2025-07-19 07:42 | RAD REPORT ---
EXAM: Right upper quadrant ultrasound. CLINICAL HISTORY: ABD PAIN COMPARISON: None. FINDINGS: Gallbladder: Surgically absent. Bile ducts: No intrahepatic or extrahepatic biliary dilatation. Common bile duct measures 4-5 mm. Limited imaging of the liver shows no concerning finding. IMPRESSION: Unremarkable exam status post cholecystectomy.
--- NOTE | 2025-07-19 07:58 | RAD REPORT ---
EXAMINATION: CT ABDOMEN AND PELVIS WITH CONTRAST CLINICAL INDICATION: RUQ pain, elevated LFTs, Bili;Abd pain TECHNIQUE: CT abdomen and pelvis was performed, after the administration of IV contrast, as per [facility] protocol. Axial, sagittal and coronal reconstructions were obtained. One or more of the following dose reduction techniques were used: Automated exposure control, adjustment of the mA and k V according to patient size, and iterative reconstruction. Unless otherwise specified, incidental findings do not require dedicated imaging follow-up. COMPARISON: No prior exam. FINDINGS: LOWER CHEST: Small left pleural effusion with atelectasis in the left lung base. LIVER: Normal in size and contour. No focal lesion. Cholecystectomy clips. SPLEEN: Normal size. No focal lesion. PANCREAS: No mass, ductal dilation, or sheron-pancreatic fluid. ADRENALS: Normal; no mass. KIDNEYS: Normal size and contour. No hydronephrosis. GASTROINTESTINAL TRACT: No evidence of free air, significant intra-abdominal free fluid, bowel obstru ction or abscess. Moderate stool is present throughout the colon. Diverticulosis coli. APPENDIX: Normal appendix. LYMPH NODES: No lymphadenopathy. MUSCULOSKELETAL: Mild multilevel spinal degenerative changes. ADDITIONAL FINDINGS: Prostate gland is enlarged and projects into the bladder base. IMPRESSION: No acute abnormalities seen in the abdomen or pelvis. Small left pleural effusion with atelectasis in the left lung base.
[2025-07-19] MEDS ORDERED: Levofloxacin500mg IV 500 MG/100 ML BAG IV ONE (08:21)
--- NOTE | 2025-07-19 08:31 | ER ---
Nurse's Notes [facility] Name: Morris Bowman II Age: 70 yrs Sex: Male : 1955 Arrival Date: 07/19/2025 Time: 05:31 Bed 7 Private MD: Markie Wong Diagnosis: Pneumonia, elevated LFTs Presentation: 07/19 05:50 Chief complaint: Patient states: PT STATES HE WOKE UP AT MID-NIGHT DUE TO ABDOMINAL br2 PAIN THAT RADIATES TO HIS BACK. PT DENIES N/V/D/G. PT IS S/P QUAD BYPASS SURGERY ON 06/03/2025. Coronavirus screen: Client denies travel out of the [place] in the last 14 days. Ebola Screen: Patient denies exposure to infectious person. Initial Sepsis Screen: Does the patient meet any 2 criteria? No. Patient's initial sepsis screen is negative. Does the patient have a suspected source of infection? No. Patient's initial sepsis screen is negative. Risk Assessment: Do you want to hurt yourself or someone else? Patient reports no desire to harm self or others. Onset of symptoms was July 19, 2025 at 00:00. 05:50 Method Of Arrival: Ambulatory br2 05:50 Acuity: ALEKSANDRA 3 br2 Triage Assessment: 05:53 General: Appears in no apparent distress. comfortable, Behavior is calm, cooperative. br2 Pain: Complains of pain in right upper quadrant and left upper quadrant Pain radiates to right low back Pain currently is 3 out of 10 on a pain scale. Historical: - Allergies: 05:53 Codeine; br2 - PMHx: 05:53 allergies; constipation; Diabetes - NIDDM; Hyperlipidemia; Hypertension; br2 - PSHx: 05:53 Cholecystectomy; heart stent; QUAD BYPASS (heart stent); br2 - Immunization history:: Adult Immunizations not up to date. - Infectious Disease History:: Denies. - Social history:: Smoking status: Patient/guardian denies using tobacco, Patient/guardian denies using alcohol, street drugs. Screenin:00 [facility] ED Fall Risk Assessment (Adult) History of falling in the last 3 months, mf3 including since admission No falls in past 3 months (0 pts) Confusion or Disorientation No (0 pts) Intoxicated or Sedated No (0 pts) Impaired Gait No (0 pts) Mobility Assist Device Used No (0 pt) Altered Elimination No (0 pt) Score/Fall Risk Level. Abuse screen: Denies threats or abuse. Denies injuries from another. Nutritional screening: No deficits noted. Tuberculosis screening: No symptoms or risk factors identified. Never had TB. Assessment: 06:00 General: Appears in no apparent distress. uncomfortable, Behavior is calm, cooperative. mf3 06:00 Pain: Complains of pain in abdomen. Neuro: Level of Consciousness is awake, alert, mf3 obeys commands, Oriented to person, place, time. Cardiovascular: Heart tones S1 S2 Capillary refill < 3 seconds. Respiratory: Airway is patent Respiratory effort is even, unlabored, Respiratory pattern is regular, symmetrical. GI: Bowel sounds present X 4 quads. Abdomen is tender to palpation in right upper quadrant and left upper quadrant. Derm: Skin is intact, is healthy with good turgor, Skin is pink, warm \T\ dry. 07:29 Reassessment: Patient states feeling better. Patient states symptoms have improved. ap3 General: Appears comfortable, Behavior is calm, cooperative, appropriate for age. Neuro: Level of Consciousness is awake, alert, obeys commands, Oriented to person, place, time, situation, Appropriate for age. Cardiovascular: Patient's skin is warm and dry. Respiratory: Airway is patent Respiratory effort is even, unlabored, Respiratory pattern is regular, symmetrical. GI: Reports lower abdominal pain, upper abdominal pain. 08:25 Reassessment: Patient and/or family updated on plan of care and expected duration. Pain ap3 level reassessed. Patient is alert, oriented x 3, equal unlabored respirations, skin warm/dry/pink. 08:31 Reassessment: awaiting completion of patients antibiotics prior to patients discharge. ap3 Vital Signs: 05:50 BP 142 / 62; Pulse 65; Resp 18; Temp 97.3; Pulse Ox 96% on R/A; Weight 104.33 kg; br2 Height 6 ft. 3 in. ; Pain 3/10; 07:30 BP 141 / 66; Pulse 65; Resp 18; Pulse Ox 95% on R/A; ap3 08:25 BP 134 / 68; Pulse 65; Resp 18; Pulse Ox 96% on R/A; ap3 10:55 BP 143 / 76; Pulse 62; Resp 18; Pulse Ox 97% on R/A; ap3 05:50 Body Mass Index 28.75 (104.33 kg, 190.5 cm) br2 05:50 Pain Scale: Adult br2 [place] Coma Score: 06:00 Eye Response: spontaneous(4). Motor Response: obeys commands(6). Verbal Response: mf3 oriented(5). Total: 15. ED Course: 05:35 Patient arrived in ED. gm2 05:36 Markie Wong is Private Physician. gm2 05:38 Chris Delgado DO is Attending Physician. tt7 05:53 Triage completed. br2 05:53 Arm band placed on right wrist. br2 06:00 Bed in low position. Call light in reach. Side rails up X2. Provided Education on: pt mf3 educated on POC. 06:12 Frank Gonzalez, RN is Primary Nurse. bm8 06:14 No provider procedures requiring assistance completed. Initial lab(s) drawn, by ED bm8 staff, sent to lab. EKG done, by ED staff, reviewed by Chris Delgado DO. Inserted saline lock: 20 gauge in right antecubital area, using aseptic technique. Blood collected. Flushed with 10 mL NS. 06:28 XRAY Chest (1 view) In Process Unspecified. EDMS 07:05 Attending Physician role handed off by Chris Delgado DO sp3 07:05 Kevin Carter MD is Attending Physician. sp3 07:19 US Abdomen Limited In Process Unspecified. EDMS 07:44 CT Abd/Pelvis - IV Contrast Only In Process Unspecified. EDMS 11:09 IV discontinued, intact, bleeding controlled, No redness/swelling at site. Pressure ap3 dressing applied. Administered Medications: 06:12 Drug: Acetaminophen PO 1000 mg PO once Route: PO; bm8 07:31 Follow up: Response: No adverse reaction; Pain is decreased ap3 06:54 Drug: Piperacillin-Tazobactam IVPB 4.5 grams IVPB once over 60 mins; (mix in 100 mL NS) bm8 Route: IVPB; Infused Over: 60 mins; Site: right antecubital; 07:31 Follow up: IV Status: Completed infusion ap3 08:25 Drug: levofloxacin IVPB 500 mg 100 ml IVPB once over 60 mins Volume: 100 ml; Route: ap3 IVPB; Infused Over: 60 mins; Site: right antecubital; 10:55 Follow up: IV Status: Completed infusion ap3 Medication: 06:00 VIS not applicable for this client. mf3 Outcome: 08:30 Discharge ordered by . sp3 11:09 Discharged to home via wheelchair, with family, ap3 11:09 Condition: good : Discharge instructions given to patient, family, Instructed on discharge instructions, follow up and referral plans. medication usage, Demonstrated understanding of instructions, follow-up care, medications, Prescriptions given X 1, 11:15 Patient left the ED. ap3 Signatures: Dispatcher [employer] EDMS Julia Ortiz RN RN ap3 Kevin Carter MD MD sp3 Estelita Riggins 2 Frank Gonzalez RN RN bm8 Ita Lopez RN RN br2 Kari Valenzuela RN RN mf3 Chris Delgado, DO DO tt7
--- NOTE | 2025-07-19 08:31 | EDPHYS ---
Physician Documentation [facility] Name: Morris Bowman II Age: 70 yrs Sex: Male : 1955 Arrival Date: 07/19/2025 Time: 05:31 Bed 7 Private MD: Markie Wong ED Physician Kevin Catrer HPI: 07/19 05:52 This 70 yrs old Male presents to ER via Ambulatory with complaints of Abdominal Pain. tt7 05:52 Patient reports intermittent cramping epigastric pain that woke him up around midnight tt7 this evening, he reports this is the third time that he has woken up with similar pain in the past week, no associated nausea, chest pain, or shortness of breath. He states he feels very dehydrated as he has been taking furosemide 40 mg daily. He had recent CABG on 06/03 at [facility] and was discharged on the furosemide due to lower extremity swelling. He also states he was previously taking Ozempic for control of his diabetes prior to his surgery, while in the hospital he was taken off of Ozempic and treated with insulin, few weeks ago he was restarted on his Ozempic and has been titrating up to his previous dose. Historical: - Allergies: 05:53 Codeine; br2 - PMHx: 05:53 allergies; constipation; Diabetes - NIDDM; Hyperlipidemia; Hypertension; br2 - PSHx: 05:53 Cholecystectomy; heart stent; QUAD BYPASS (heart stent); br2 - Immunization history:: Adult Immunizations not up to date. - Infectious Disease History:: Denies. - Social history:: Smoking status: Patient/guardian denies using tobacco, Patient/guardian denies using alcohol, street drugs. ROS: 05:51 Constitutional: negative for fever. Cardiovascular: negative for chest pain. tt7 Respiratory: negative for shortness of breath. MS/Extremity: negative for injury and deformity. Skin: negative for rash. Neuro: negative for focal weakness. 05:51 Abdomen/GI: Positive for abdominal pain, Negative for vomiting, Exam: 05:52 Constitutional: vital signs reviewed, well appearing. Head/Face: normocephalic, tt7 atraumatic. Eyes: no conjunctival injection, anicteric sclerae. ENT: mucus membranes moist. Neck: trachea midline, no JVD, no meningismus. Chest/axilla: normal chest wall appearance and motion, nontender, no crepitus. Cardiovascular: regular rate and rhythm, no murmurs, no rubs, no lower extremity edema. Respiratory: normal respiratory effort, no accessory muscle use, lungs CTAB. Abdomen/GI: soft, nondistended, nontender, no guarding or rebound, negative Suárez's sign, no McBurney point tenderness. Back: normal ROM. Skin: warm, dry, intact, normal turgor, normal color, no rash. MS/ Extremity: normal ROM of extremities, no gross deformities. Neuro: alert and oriented with appropriate mental status, normal speech, follows commands, no focal neurologic deficits. Psych: appropriate mood and affect. Vital Signs: 05:50 BP 142 / 62; Pulse 65; Resp 18; Temp 97.3; Pulse Ox 96% on R/A; Weight 104.33 kg; br2 Height 6 ft. 3 in. ; Pain 3/10; 07:30 BP 141 / 66; Pulse 65; Resp 18; Pulse Ox 95% on R/A; ap3 08:25 BP 134 / 68; Pulse 65; Resp 18; Pulse Ox 96% on R/A; ap3 10:55 BP 143 / 76; Pulse 62; Resp 18; Pulse Ox 97% on R/A; ap3 05:50 Body Mass Index 28.75 (104.33 kg, 190.5 cm) br2 05:50 Pain Scale: Adult br2 [place] Coma Score: 06:00 Eye Response: spontaneous(4). Motor Response: obeys commands(6). Verbal Response: mf3 oriented(5). Total: 15. MDM: 05:38 Medical Screening Exam initiated tt7 05:54 Differential diagnosis: Nonspecific abdominal pain, gastritis, pancreatitis, acute tt7 coronary syndrome, pneumonia, pneumothorax. Data reviewed: vital signs, nurses notes, old medical records, lab test result(s), EKG, radiologic studies. ED course: Patient is well-appearing with stable vital signs, standard abdominal pain laboratory studies ordered, will initiate standard cardiac workup to assess for ACS given patient's history and the epigastric location of the pain although I have low suspicion for this. 07:06 ED course: I independently interpreted the patient's EKG performed on 07/19/2025 at tt7 0556. On my interpretation, EKG demonstrates sinus rhythm with first-degree AV block, ventricular rate 62 bpm, incomplete right bundle branch block, QRS duration 109 ms, trace inferior ST elevation with no reciprocal changes, does not meet STEMI criteria,, no STEMI. ED course: Laboratory studies show a leukocytosis of 16,800, patient has elevation of AST and ALT as well as elevated total bilirubin of 2.0, mildly elevated lipase of 91, overall laboratory study findings as well as patient's upper abdominal pain are concerning for biliary infection or choledocholithiasis, will start the patient on IV Zosyn and obtain right upper quadrant ultrasound, after so I discussed this with the patient he stated that he did have a gallbladder but then reported that he might of had this surgically removed, will correlate with ultrasound results, patient care signed out to Dr. Carter at 0700 pending results of ultrasound. 07:26 Transition of care: After a detail discussion of the patient's case, care is sp3 transferred to Kevin Carter MD. 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 70-year-old male with PMH above with right upper quadrant pain and elevated LFTs including bilirubin. Ultrasound and CT scan of the abdomen pelvis are both pending to elucidate exact diagnosis. Probable transfer pending workup. No GI coverage available today. Vital signs are stable and patient is resting comfortably.. 08:09 ED course: Patient's ultrasound demonstrates no CBD dilatation and gallbladder is sp3 surgically absent. CT also demonstrates no significant abnormality. After further history, patient is on immunotherapy for basal cell carcinoma with last dose in April. Chest x-ray demonstrates small infiltrate. We will treat with levofloxacin and patient will be given a copy of his labs to follow back up with his oncology team in [place]. Patient's symptoms/pain is fully resolved. His vital signs are normal including pulse oxygenation. He is in no distress. Further per outpatient team.. 07/19 05:49 Order name: CBC with Diff; Complete Time: 07:39 tt7 07/19 05:49 Order name: CMP; Complete Time: 06:40 tt7 07/19 05:49 Order name: Lipase; Complete Time: 06:40 tt7 07/19 05:49 Order name: Troponin HS; Complete Time: 06:40 tt7 07/19 06:11 Order name: CBC Smear Scan; Complete Time: 07:39 EDMS 07/19 06:22 Order name: UA Rfx Mckay Cult if indicated; Complete Time: 06:40 tt7 07/19 05:49 Order name: XRAY Chest (1 view); Complete Time: 08:01 tt7 07/19 06:42 Order name: US Abdomen Limited; Complete Time: 08:01 tt7 07/19 07:07 Order name: CT Abd/Pelvis - IV Contrast Only; Complete Time: 08:01 sp3 07/19 05:49 Order name: IV Saline Lock; Complete Time: 06:12 tt7 07/19 05:49 Order name: Labs collected and sent; Complete Time: 06:12 tt7 07/19 05:49 Order name: Cardiac monitoring; Complete Time: 06:12 tt7 07/19 05:49 Order name: EKG - Nurse/Tech; Complete Time: 06:12 tt7 07/19 05:49 Order name: O2 Per Protocol; Complete Time: 06:12 tt7 07/19 05:49 Order name: O2 Sat Monitoring; Complete Time: 06:12 tt7 Administered Medications: 06:12 Drug: Acetaminophen PO 1000 mg PO once Route: PO; bm8 07:31 Follow up: Response: No adverse reaction; Pain is decreased ap3 06:54 Drug: Piperacillin-Tazobactam IVPB 4.5 grams IVPB once over 60 mins; (mix in 100 mL NS) bm8 Route: IVPB; Infused Over: 60 mins; Site: right antecubital; 07:31 Follow up: IV Status: Completed infusion ap3 08:25 Drug: levofloxacin IVPB 500 mg 100 ml IVPB once over 60 mins Volume: 100 ml; Route: ap3 IVPB; Infused Over: 60 mins; Site: right antecubital; 10:55 Follow up: IV Status: Completed infusion ap3 Disposition Summary: 07/19/25 08:30 Discharge Ordered Condition: Stable sp3 Diagnosis - Pneumonia, elevated LFTs sp3 Followup: sp3 - With: Private Physician - When: Upon discharge from the Emergency Department - Reason: Continuance of care Discharge Instructions: - Discharge Summary Sheet sp3 - Community-Acquired Pneumonia, Adult sp3 Forms: - Medication Reconciliation Form sp3 - Antibiotic Education sp3 - Prescription Opioid Use sp3 - Patient Portal Instructions sp3 - Leadership Thank You Letter sp3 Prescriptions: - levofloxacin 500 mg Oral tablet - take 1 tablet ORAL route once daily for 7 days; 7 tablet; Refills: 0, Product sp3 Selection Permitted Signatures: Dispatcher [employer] EDMS Julia Ortiz, RN RN ap3 Kevin aCrter MD MD sp3 Frank Gonzalez RN RN bm8 Ita Lopez RN RN br2 Chris Delgado, DO tt7 Corrections: (The following items were deleted from the chart) 05:49 05:49 CBC+H.LAB.BRZ ordered. EDMS EDMS 05:49 05:49 COMPREHENSIVE METABOLIC PANEL+C.LAB.BRZ ordered. EDMS EDMS 05:49 05:49 LIPASE+C.LAB.BRZ ordered. EDMS EDMS 05:49 05:49 Troponin High Sensitivity+C.LAB.BRZ ordered. EDMS EDMS 05:49 05:49 Chest Single View+RAD.RAD.BRZ ordered. EDMS EDMS
[2025-07-19 12:46] VITALS: TEMP 97.3
[2025-07-19 13:03] VITALS: BP 143/76; O2SAT 97
== END 2025-07-19 11:15 | disposition home or self-care (01) ==
LOC: ER 05:31
DX: J18.9 Pneumonia, unspecified organism (principal); R94.5 Abnormal results of liver function studies; I10 Essential (primary) hypertension; Z95.1 Presence of aortocoronary bypass graft; Z95.818 Presence of other cardiac implants and grafts
CPT/HCPCS: 96365; 96367; 93005; 85025; 36415; 81003; 84484; 83690; 80053; 74177; 71045; 76705; 99284; 96366; Q9967